=== PATIENT | female | born 1960 | race Caucasian/White ===

== ENCOUNTER 2018-10-12 11:38 | Emergency (ER) | payer BC, OTHER ==
[~2018-10-12] VITALS: Ht 152.4 cm; Wt 68.9 kg
[~2018-10-12 11:38] MED LIST: AMBIEN10 MG PO; CYMBALTA60 MG PO; OMEPRAZOLE40 MG PO; PERCOCET 10-321 EACH PO; TRAZODONE HCL150 MG PO; ZANAFLEX4 MG PO
--- OUTSIDE RECORDS SUMMARY | 2018-10-12 11:42 | XMS REPORT | Continuity of Care Document ---
Author Author [employer] Organization [employer] Address Unknown Phone Unavailable Care Team Providers Care Sealer Dry [employer] Name Role Phone [employer] Unavailable Unavailable Problems Problem Status Onset Date Classification Date Reported Comments Source M48.02 - SPINAL STENOSIS, CERVICAL RODY Active 06/09/2018 [facility] M79.642 - PAIN IN LEFT HAND Active 04/18/2018 [facility] Discharge Diagnosis: Acute left-sided low back pain 11/14/2016 11/17/2016 [facility] BACK PAIN Active 11/14/2016 [facility] Discharge Diagnosis: Sacral contusion 10/22/2016 10/25/2016 [facility] FALL/HIP PAIN Active 10/22/2016 [facility] ACUTE PYELONEPHRITIS, LEUKOCYTOSIS Active 05/26/2016 [facility] FEVER 105 Active 05/26/2016 [facility] UNK Active 02/02/2015 [facility] I25.118 Active 02/02/2015 [facility] FALL Active 12/15/2014 [facility] SYNCOPE, RIB FX Active 12/15/2014 [facility] Discharge Diagnosis: Chest wall pain 12/11/2013 12/14/2013 [facility] FLANK PAIN Active 12/09/2013 [facility] Idiopathic Atrophic Hypothyroidism Active Problem 06/15/2018 [facility] Chest pain Resolved Problem 06/15/2018 [facility] [place] Degenerative disc disease Resolved Problem 06/15/2018 [facility] [place] Depression Resolved Problem 06/15/2018 [facility] [place] Fibromyalgia Resolved Problem 06/15/2018 [facility] [place] Insomnia due to Depression and Anxiety Active Problem 06/15/2018 [facility], [facility] [place] Kidney stones Resolved Problem 06/15/2018 [facility] Opioid dependence Active Problem 06/15/2018 [facility] [place] Moderate recurrent major depression Active Problem 06/15/2018 [facility], [facility] [place] Shortness of breath Resolved Problem 06/15/2018 [facility], [facility] [place] Smoker Resolved Problem 06/15/2018 [facility], [facility] [place] Syncope Resolved Problem 06/15/2018 [facility], [facility] [place] Tachycardia Resolved Problem 06/15/2018 [facility], [facility] [place] SYNCOPE AND COLLAPSE Active [facility] ATHSCL HEART DISEASE OF [place] COR ART W Active [facility] ACUTE PYELONEPHRITIS Active [facility] ELEVATED WHITE BLOOD CELL COUNT, UNSPECI Active [facility] Medications Medication Details Route Status Patient Instructions Ordering Provider Order Date Source levothyroxine 50 mcg (0.05 mg) oral tablet 50 microgram=1 tab, PO, QAM, take with plain water on empty stomach for thyroid. Wait 30 minutes before other food, drink, or pills., # 90 tab, 1 Refill(s), Pharmacy: [facility] Active 06/11/2018 [facility] Chantix 1 mg oral tablet 1 mg=1 tab, PO, BID, to start: half tab once a day x4days, then half tab twice a [id number], then whole tab twice daily, # 180 tab, 2 Refill(s), Pharmacy: [facility] Active 06/03/2018 [facility] 0.5 ML Varicella zoster virus glycoprotein E, recombinant 0.1 MG/ML Injection [Shingrix] 0.5 mL, IM, ONCE, repeat dose in 2 to 6 months, # 1 mL, 1 Refill(s) Active 06/03/2018 [facility] gabapentin 600 MG Oral Tablet [Gralise] 600 mg=1 tab, PO, Daily, # 90 tab, 1 Refill(s) Inactive 06/03/2018 [facility] Dilaudid 0.5 mg, 0.5 mL, Route: IVP, Drug form: INJ, ONCE, Dosing Weight 52.273, kg, Priority: STAT, Start date: 11/14/16 17:40:00 CDT, Stop date: 11/14/16 17:40:00 CDT Inactive 11/14/2016 [facility] Cyclobenzaprine hydrochloride 10 MG Oral Tablet [Flexeril] 10 mg, PO, TID, PRN Muscle Spasm, X 5 day, # 20 tab, 0 Refill(s) Active 11/14/2016 [facility] tramadol hydrochloride 50 MG Oral Tablet [Ultram] 100 mg=2 tab, PO, Q6H, PRN pain, X 5 day, # 40 tab, 0 Refill(s) Active 11/14/2016 [facility] Dexamethasone 10 mg, 2.5 mL, Route: IM, Drug form: INJ, ONCE, Dosing Weight 52.273, kg, Priority: STAT, Start date: 11/14/16 16:31:00 CDT, Stop date: 11/14/16 16:31:00 CDT Inactive 11/14/2016 [facility] Acetaminophen 325 MG / Hydrocodone Bitartrate 10 MG Oral Tablet [Bardwell 10/325] 1 tab, Route: PO, Drug Form: TAB, Dosing Weight 52.273, kg, ONCE, Start date: 11/14/16 16:30:00 CDT, Stop date: 11/14/16 16:30:00 CDTNotes: Do not exceed 4gm/day of acetaminophen. (Same as: Bardwell 325/10) Inactive 11/14/2016 [facility] Ketorolac 60 mg, 2 mL, Route: IM, Drug form: INJ, ONCE, Dosing Weight 52.273, kg, Priority: STAT, Start date: 11/14/16 16:30:00 CDT, Stop date: 11/14/16 16:30:00 CDTNotes: (Same as:Toradol) IV bolus must be given >15 seconds. Give IM administration slowly and deeply into the muscle. Not for use > 4 days MEDICATION WASTE Product Size: 60 mg Product Wasted: ___ mg Inactive 11/14/2016 [facility] Valium 5 mg, 1 tab, Route: PO, Drug form: TAB, ONCE, Dosing Weight 52.273, kg, Priority: STAT, Start date: 11/14/16 16:30:00 CDT, Stop date: 11/14/16 16:30:00 CDTNotes: (Same as: Valium) Inactive 11/14/2016 [facility] Valium 5 mg, 1 tab, Route: PO, Drug form: TAB, ONCE, Dosing Weight 52.273, kg, Priority: STAT, Start date: 11/14/16 15:47:00 CDT, Stop date: 11/14/16 15:47:00 CDTNotes: (Same as: Valium) Inactive 11/14/2016 [facility] Acetaminophen 325 MG / Hydrocodone Bitartrate 10 MG Oral Tablet [Bardwell 10/325] 1 tab, Route: PO, Drug Form: TAB, Dosing Weight 52.273, kg, ONCE, STAT, Start date: 11/14/16 15:47:00 CDT, Stop date: 11/14/16 15:47:00 CDTNotes: Do not exceed 4gm/day of acetaminophen. (Same as: Bardwell 325/10) Inactive 11/14/2016 [facility] Ketorolac 60 mg, 2 mL, Route: IM, Drug form: INJ, ONCE, Dosing Weight 52.727, kg, Priority: STAT, Start date: 11/14/16 15:47:00 CDT, Stop date: 11/14/16 15:47:00 CDTNotes: (Same as:Toradol) IV bolus must be given >15 seconds. Give IM administration slowly and deeply into the muscle. Not for use > 4 days MEDICATION WASTE Product Size: 60 mg Product Wasted: ___ mg Inactive 11/14/2016 [facility] Zofran ODT 4 mg, Route: PO, Drug form: TABDIS, ONCE, Dosing Weight 52.727, kg, Priority: STAT, Start date: 10/22/16 14:22:00 CDT, Stop date: 10/22/16 14:22:00 CDT Inactive 10/22/2016 [facility] Morphine 4 mg, Route: IM, ONCE, Dosing Weight 52.727, kg, Priority: STAT, Start date: 10/22/16 14:22:00 CDT, Stop date: 10/22/16 14:22:00 CDT Inactive 10/22/2016 [facility] tramadol hydrochloride 50 MG Oral Tablet [Ultram] 100 mg=2 tab, PO, Q6H, PRN pain, X 4 day, # 32 tab, 0 Refill(s) Active 10/22/2016 [facility] Acetaminophen 325 MG / Hydrocodone Bitartrate 7.5 MG Oral Tablet [Bardwell 7.5/325] 1 tab, Route: PO, Drug Form: TAB, Dosing Weight 52.727, kg, ONCE, STAT, Start date: 10/22/16 13:07:00 CDT, Stop date: 10/22/16 13:07:00 CDT Inactive 10/22/2016 [facility] PLease do not give Vanco prior to trough is collected PLease do not give Vanco prior to trough is collected, Reminder, Drug form: MISC, Route: MISC, ONCE, 05/28/16 10:30:00 [employer], Stop date: 05/28/16 10:30:00 [employer] No Longer Active 05/28/2016 [facility] Docusate Sodium 100 MG Oral Capsule [Colace] 200 mg, 2 cap, Route: PO, Drug form: CAP, BID, Dosing Weight 54.545, kg, Start date: 05/27/16 17:00:00 [employer], Duration: 30 day, Stop date: 06/26/16 9:00:00 CDTNotes: (Same as: Colace) (Do Not Crush) Inactive 05/27/2016 [facility] magnesium citrate 58.2 MG/ML Oral Solution 300 ml, Route: PO, Drug Form: LIQ, Dosing Weight 54.545, kg, ONCE, Start date: 05/27/16 12:01:00 [employer], Stop date: 05/27/16 12:01:00 CSTNotes: (Same as: Citrate of Magnesia) Concentration: 1.745 gm / 30 mL Inactive 05/27/2016 [facility] Atropine 0.5 mg, 5 mL, Route: IV, Drug form: INJ, PRN, Dosing Weight 54.545, kg, PRN Bradycardia, Start date: 05/27/16 3:34:00 [employer], Duration: 30 day, Stop date: 06/26/16 4:33:00 CDT, symptomatic bradycardia HR Inactive 05/27/2016 [facility] Nitroglycerin 0.4 MG Sublingual Tablet [Nitrostat] 0.4 mg, 1 tab, Route: SL, Drug form: TAB, Q5Min, Dosing Weight 54.545, kg, PRN Chest Pain, Start date: 05/27/16 3:34:00 [employer], Duration: 3 doses or times, Stop date: Limited # of timesNotes: (Same as:Nitroquick, Nitrostat) "Do Not Crush" Sublingual tablet Inactive 05/27/2016 [facility] Trazodone 150 mg, 3 tab, Route: PO, Drug form: TAB, Bedtime, Dosing Weight 54.545, kg, Start date: 05/27/16 1:00:00 [employer], Duration: 30 day, Stop date: 06/25/16 21:00:00 CDTNotes: (Same As: Desyrel) Inactive 05/27/2016 [facility] Ambien 5 mg, 1 tab, Route: PO, Drug form: TAB, Bedtime, Dosing Weight 54.545, kg, PRN as needed for sleep, Start date: 05/27/16 0:59:00 [employer], Stop date: 06/24/16 21:00:00 CDTNotes: (Same As: Ambien) Inactive 05/27/2016 [facility] Cymbalta 60 mg, 2 cap, Route: PO, Drug form: DRC, Bedtime, Dosing Weight 54.545, kg, Start date: 05/27/16 0:59:00 [employer], Duration: 30 day, Stop date: 06/25/16 21:00:00 CDTNotes: (Same as: Cymbalta) (Do Not Crush) Inactive 05/27/2016 [facility] VESICARE PO, Daily, 0 Refill(s) Active 05/27/2016 [facility] Clonazepam 0.5 mg, PO, Daily, PRN Anxiety, 0 Refill(s) Active 05/27/2016 [facility] Paxil PO, Daily, 0 Refill(s) Active 05/27/2016 [facility] Vancomycin 1,000 mg, Route: IVPB, Drug form: INJ, [id number], Dosing Weight 53.182, kg, Start date: 05/26/16 22:00:00 [employer], Duration: 30 day, Stop date: 06/25/16 10:00:00 CDT Inactive 05/27/2016 [facility] Zosyn 3.375 gm, Route: IVPB, [id number], Dosing Weight 53.182, kg, CrCl >=20 ml/min infuse over 4 hours, Start date: 05/26/16 22:00:00 [employer], Duration: 30 day, Stop date: 06/25/16 16:00:00 CDTNotes: (Same as: Zosyn) Dosing based on Piperacillin component MEDICATION WASTE Product Size: 3375 mg Product Wasted: ___ mg No Longer Active 05/27/2016 [facility] 12 HR Oxycodone Hydrochloride 15 MG Extended Release Tablet [Oxycontin] 15 mg=1 tab, PO, Bedtime, 0 Refill(s) Active 05/27/2016 [facility] Sodium Chloride 0.154 MEQ/ML Injectable Solution 1,000 mL, 1,000 ml/hr, Infuse Over: 1 hr, Route: IV, 1,000, Drug form: INJ, ONCE, Priority: STAT, Dosing Weight 53.182 kg, Start date: 05/26/16 21:11:00 [employer], Duration: 1 doses or times, Stop date: 05/26/16 21:11:00 [employer] Inactive 05/27/2016 [facility] Saline Flush 0.9% 10 ml, Route: IVP, Drug Form: INJ, Dosing Weight 53.182, kg, PRN, PRN Line Flush, Start date: 05/26/16 21:10:00 [employer], Duration: 30 day, Stop date: 06/25/16 22:09:00 CDTNotes: (Same as: BD Posiflush) No Longer Active 05/27/2016 [facility] Morphine 4 mg, 1 mL, Route: IVP, Drug form: SOLN, Q4H, Dosing Weight 53.182, kg, PRN Pain Score 7-10, Start date: 05/26/16 21:10:00 [employer], Duration: 30 day, Stop date: 06/25/16 21:09:00 CDTNotes: (Same as:MORPhine Sulfate) No Longer Active 05/27/2016 [facility] Ondansetron 4 mg, 2 mL, Route: IVP, Drug form: INJ, Q6H, Dosing Weight 53.182, kg, PRN Nausea & Vomiting, Start date: 05/26/16 21:10:00 [employer], Duration: 30 day, Stop date: 06/25/16 21:09:00 CDTNotes: (Same as: Liu) MEDICATION WASTE Product Size: 4 mg Product Wasted: ___ mg No Longer Active 05/27/2016 [facility] Sodium Chloride 0.154 MEQ/ML Injectable Solution 1,000 mL, Rate: 100 ml/hr, Infuse over: 10 hr, Route: IV, Dosing Weight 53.182 kg, Total Volume: 1,000, Start date: 05/26/16 21:10:00 [employer], Stop date: 06/25/16 21:09:00 CDT No Longer Active 05/27/2016 [facility] Acetaminophen 325 MG / Hydrocodone Bitartrate 10 MG Oral Tablet [Bardwell 10/325] 2 tab, Route: PO, Drug Form: TAB, Dosing Weight 53.182, kg, ONCE, STAT, Start date: 05/26/16 17:35:00 [employer], Stop date: 05/26/16 17:35:00 [employer] Inactive 05/26/2016 [facility] cefepime 2 gm, Route: IVPB, ONCE, Dosing Weight 53.182, kg, Priority: STAT, Start date: 05/26/16 16:31:00 [employer], Stop date: 05/26/16 16:31:00 [employer] Inactive 05/26/2016 [facility] Sodium Chloride 0.154 MEQ/ML Injectable Solution 1,000 mL, 1,000 ml/hr, Infuse Over: 1 hr, Route: IV, 1,000, Drug form: INJ, ONCE, Priority: STAT, Dosing Weight 53.182 kg, Start date: 05/26/16 16:31:00 [employer], Duration: 1 doses or times, Stop date: 05/26/16 16:31:00 [employer] Inactive 05/26/2016 [facility] Saline Flush 0.9% 10 mL, Route: IVP, Drug Form: INJ, Dosing Weight 53.182, kg, PRN, PRN Line Flush, Start date: 05/26/16 16:06:00 [employer], Duration: 30 day, Stop date: 06/25/16 17:05:00 CDTNotes: (Same as: Posiflush) No Longer Active 05/26/2016 [facility] Sodium Chloride 0.154 MEQ/ML Injectable Solution 1,000 mL, 2,000 ml/hr, Route: IV, ONCE, Priority: STAT, Dosing Weight 53.182 kg, Start date: 05/26/16 16:06:00 [employer], Duration: 1 doses or times, Stop date: 05/26/16 16:06:00 [employer] Inactive 05/26/2016 [facility] Morphine 2 mg, 1 mL, Route: IV, Drug form: INJ, Q4H, Dosing Weight 51.727, kg, PRN Pain Score 6-10, Start date: 02/04/15 11:28:00, Duration: 30 day, Stop date: 03/06/15 11:27:00Notes: (Same as:MORPhine Sulfate) Inactive 02/04/2015 [facility] Tylenol 500 mg, 1 tab, Route: PO, Drug form: TAB, Q6H, Dosing Weight 51.727, kg, PRN Pain Score 4-6, Start date: 02/04/15 11:27:00, Duration: 30 day, Stop date: 03/06/15 11:26:00Notes: Max acetaminophen 4000 mg /day (4 gm/day). (Same as: Tylenol Extra Strength) Inactive 02/04/2015 [facility] metoprolol 25 mg oral tablet, extended release 25 mg=1 tab, PO, Daily, # 90 tab, 3 Refill(s) Active 02/04/2015 [facility] 24 HR Nicotine 0.875 MG/HR Transdermal Patch =1 patch, TOP, Daily, # 30 patch, 0 Refill(s) Active 02/04/2015 [facility] Nitroglycerin 0.4 MG Sublingual Tablet 0.4 mg=1 tab, SL, Q5Min, PRN Chest Pain, Give up to 3 doses. Call 911 if pain persists., # 25 tab, 3 Refill(s) Active 02/04/2015 [facility] normal saline 0.9% IV 1,000 mL 1,000 mL, Rate: 100 ml/hr, Infuse over: 10 hr, Route: IV, Dosing Weight 49.091 kg, Total Volume: 1,000, Start date: 02/04/15 8:45:00, Duration: 30 day, Stop date: 03/06/15 8:44:00 Inactive 02/04/2015 [facility] Cymbalta 60 mg, 2 cap, Route: PO, Drug form: DRC, Daily, Dosing Weight 47.72, kg, Start date: 12/18/14 9:00:00, Duration: 30 day, Stop date: 01/16/15 9:00:00Notes: (Same as: Cymbalta) (Do Not Crush) No Longer Active 12/18/2014 [facility] metoprolol extended release 25 mg, 1 tab, Route: PO, Drug form: ERTAB, BID, Start date: 12/17/14 21:00:00, Duration: 30 day, Stop date: 01/16/15 9:00:00Notes: (Same as: Toprol XL) Do Not Crush Inactive 12/18/2014 [facility] Lidocaine Hydrochloride 0.05 MG/MG Transdermal Patch [Lidoderm] 1 patch, TOP, Daily, Remove after 12 hours, # 30 patch, 0 Refill(s)Special Instructions: Remove after 12 hours Active 12/17/2014 [facility] Aspirin 81 MG Enteric Coated Tablet 81 mg=1 tab, PO, Daily, # 100 tab, 0 Refill(s) Active 12/17/2014 [facility] Acetaminophen 325 MG / Oxycodone Hydrochloride 10 MG Oral Tablet [Percocet 10/325] 1 tab, Route: PO, Drug Form: TAB, Dosing Weight 47.72, kg, Q6H, PRN Pain 1-3/Temp > 100.4 F, Start date: 12/17/14 13:37:00, Duration: 30 day, Stop date: 01/16/15 13:36:00Notes: Do not exceed 4gm/day of acetaminophen. (Same as: Percocet-10/325) Inactive 12/17/2014 [facility] tizanidine 4 mg, 1 tab, Route: PO, Drug form: TAB, Daily, Dosing Weight 47.72, kg, PRN as needed for muscle spasm, Start date: 12/17/14 13:36:00, Duration: 30 day, Stop date: 01/16/15 13:35:00Notes: (Same As: Z anaflex) Inactive 12/17/2014 [facility] Aspirin 81 MG Enteric Coated Tablet 81 mg, 1 tab, Route: PO, Drug form: ECTAB, Daily, Dosing Weight 47.72, kg, Start date: 12/17/14 9:00:00, Duration: 30 day, Stop date: 01/15/15 9:00:00Notes: Do not crush or chew. (Same As: Ecotrin) Inactive 12/17/2014 [facility] remove patch 1 patch, Route: TOP, Bedtime, Drug form: ERFILM, Start date: 12/17/14 6:00:00, Duration: 30 day, Stop date: 01/15/15 6:00:00Notes: Remove patch 12 hours after application each day. Inactive 12/17/2014 [facility] Lidocaine Hydrochloride 0.05 MG/MG Transdermal Patch [Lidoderm] 1 patch, Route: TOP, Daily, Drug form: FILM, Start date: 12/16/14 18:00:00, Duration: 30 day, Stop date: 01/14/15 18:00:00, Remove after 12 hoursSpecial Instructions: Remove after 12 hoursNotes: Apply only once for up to 12 hours in a 24-hour period (12 hours on and 12 hours off). (Same as: Lidoderm) "Remove old patch before application of new patch" No Longer Active 12/16/2014 [facility] Acetaminophen 325 MG / Oxycodone Hydrochloride 10 MG Oral Tablet [Percocet 10/325] 1 tab, PO, 4-6x/Day, PRN Pain Score 6-10, # 20 tab, 0 Refill(s) Active 12/16/2014 [facility] Zolpidem tartrate 10 MG Oral Tablet [Ambien] 10 mg=1 tab, PO, Bedtime, 0 Refill(s) Active 12/16/2014 [facility] tizanidine 4 mg oral tablet 4 mg=1 tab, PO, Daily, PRN Spasm, 0 Refill(s) Active 12/16/2014 [facility] trazodone 150 mg oral tablet 150 mg=1 tab, PO, Bedtime, 0 Refill(s) Active 12/16/2014 [facility] duloxetine 60 MG Enteric Coated Capsule [Cymbalta] 60 mg=1 cap, PO, Daily, 0 Refill(s) Active 12/16/2014 [facility] Magnesium Sulfate 2 gm, 50 mL, Route: IVPB, Drug form: INJ, ONCE, Dosing Weight 47.72, kg, Start date: 12/16/14 17:20:00, Duration: 2 hr, Stop date: 12/16/14 17:20:00 Inactive 12/16/2014 [facility] Nitroglycerin 0.4 MG Sublingual Tablet 0.4 mg, 1 tab, Route: SL, Drug form: TAB, Q5Min, Dosing Weight 47.72, kg, PRN Chest Pain, Start date: 12/16/14 17:05:00, Duration: 30 day, Stop date: 01/15/15 17:04:00Notes: (Same as:Nitroquick, Nitrostat) "Do Not Crush" Sublingual tablet No Longer Active 12/16/2014 [facility] Atropine 0.5 mg, 5 mL, Route: IVP, Drug form: INJ, ONCE, Dosing Weight 47.72, kg, PRN Bradycardia, Start date: 12/16/14 17:05:00, for symptomatic bradycardia No Longer Active 12/16/2014 [facility] Nicotine 21 mg, 1 patch, Route: TOP, Drug form: ERFILM, Daily, Dosing Weight 47.727, kg, Start date: 12/16/14 17:00:00, Duration: 30 day, Stop date: 01/15/15 9:00:00Notes: (Same as: Habitrol) "Remove old patch before application of new patch" No Longer Active 12/16/2014 [facility] Docusate 100 mg, 1 cap, Route: PO, Drug form: CAP, BID, Dosing Weight 47.727, kg, PRN Constipation, Start date: 12/16/14 13:20:00, Duration: 30 day, Stop date: 01/15/15 13:19:00Notes: (Same as: Colace) (Do Not Crush) No Longer Active 12/16/2014 [facility] Ondansetron 4 mg, 2 mL, Route: IVP, Drug form: INJ, Q6H, Dosing Weight 47.727, kg, PRN Nausea & Vomiting, Start date: 12/16/14 13:20:00, Duration: 30 day, Stop date: 01/15/15 13:19:00Notes: (Same as: Zofran) MEDICATION WASTE Product Size: 4 mg Product Wasted: ___ mg No Longer Active 12/16/2014 [facility] Morphine 2 mg, 1 mL, Route: IVP, Drug form: INJ, Q4H, Dosing Weight 47.727, kg, PRN Pain Score 7-10, Start date: 12/16/14 13:20:00, Duration: 30 day, Stop date: 01/15/15 13:19:00Notes: (Same as:MORPhine Sulfate) No Longer Active 12/16/2014 [facility] Zofran 4 mg, 2 mL, Route: IVP, Drug form: INJ, ONCE, Dosing Weight 47.727, kg, Priority: STAT, Start date: 12/16/14 12:33:00, Stop date: 12/16/14 12:33:00Notes: (Same as: Zoaleyda) MEDICATION WASTE Product Size: 4 mg Product Wasted: ___ mg Inactive 12/16/2014 [facility] Morphine 4 mg, 2 mL, Route: IVP, Drug form: INJ, ONCE, Dosing Weight 47.727, kg, Priority: STAT, Start date: 12/16/14 12:33:00, Stop date: 12/16/14 12:33:00Notes: (Same as:MORPhine Sulfate) Inactive 12/16/2014 [facility] Acetaminophen 325 MG / Hydrocodone Bitartrate 10 MG Oral Tablet [Bardwell 10/325] 1 tab, Route: PO, Drug Form: TAB, Dosing Weight 47.727, kg, ONCE, STAT, Start date: 12/16/14 8:37:00, Stop date: 12/16/14 8:37:00 Inactive 12/16/2014 [facility] Flexeril 10 mg, Route: PO, ONCE, Dosing Weight 47.727, kg, Priority: STAT, Start date: 12/16/14 8:37:00, Stop date: 12/16/14 8:37:00 Inactive 12/16/2014 [facility] Saline Flush 0.9% 10 mL, Route: IVP, Drug Form: INJ, Dosing Weight 47.727, kg, PRN, PRN Line Flush, Start date: 12/16/14 8:34:00, Duration: 30 day, Stop date: 01/15/15 8:33:00Notes: (Same as: BD Posiflush) No Longer Active 12/16/2014 [facility] Sodium Chloride 0.154 MEQ/ML Injectable Solution 1,000 mL, 1,000 ml/hr, Infuse Over: 1 hr, Route: IV, ONCE, Priority: STAT, Dosing Weight 47.727 kg, Start date: 12/16/14 8:34:00, Duration: 1 doses or times, Stop date: 12/16/14 8:34:00 Inactive 12/16/2014 [facility] Acetaminophen 325 MG / Hydrocodone Bitartrate 5 MG Oral Tablet [Bardwell 5/325] 1-2 tab, PO, Q4-6H, Pain, # 15 tab, 0 Refill(s) Active 12/11/2013 [facility] naproxen 500 mg oral tablet 500 mg=1 tab, PO, Q12H, Pain, # 20 tab, 0 Refill(s) Active 12/11/2013 [facility] Morphine 4 mg, Route: IVP, Drug form: INJ, ONCE, Dosing Weight 52.273, kg, Priority: STAT, Start date: 12/11/13 16:46:00, Stop date: 12/11/13 16:46:00 Inactive 12/11/2013 [facility] Ondansetron 4 mg, Route: IVP, ONCE, Dosing Weight 52.273, kg, Priority: STAT, Start date: 12/11/13 15:47:00, Stop date: 12/11/13 15:47:00 Inactive 12/11/2013 [facility] Morphine 4 mg, Route: IVP, ONCE, Dosing Weight 52.273, kg, Priority: STAT, Start date: 12/11/13 15:47:00, Stop date: 12/11/13 15:47:00 Inactive 12/11/2013 [facility] Saline Flush 0.9% 10 mL, Route: IVP, Drug Form: INJ, Dosing Weight 52.273, kg, PRN, PRN Line Flush, Start date: 12/11/13 15:47:00, Duration: 30 day, Stop date: 01/10/14 15:46:00Notes: (Same as: BD Posiflush) Inactive 12/11/2013 [facility] Allergies, Adverse Reactions, Alerts Substance Category Reaction Severity Reaction type Status Date Reported Comments Source Cipro Assertion Drug allergy Active [facility] codeine Assertion Drug allergy Active [facility] Immunizations No Data Provided for This Section Results Order Name Results Value Reference Range Date Interpretation Comments Source CHEM PANEL eGFR 104 05/27/2016 Result Comment: The eGFR is calculated using the CKD-EPI formula. In most young, healthy individuals the eGFR will be >90 mL/min/1.73m2. The eGFR declines with age. An eGFR of 60-89 may be normal in some populations, particularly the elderly, for whom the CKD-EPI formula has not been extensively validated. Use of the eGFR is not recommended in the following populations:

Individuals with unstable creatinine concentrations, including patients and those with serious co-morbid conditions.

Patients with extremes in muscle mass or diet.

The data above are obtained from the National Kidney Disease Education Program (NKDEP) which additionally recommends that when the eGFR is used in patients with extremes of body mass index for purposes of drug dosing, the eGFR should be multiplied by the estimated BMI. [facility] CHEM PANEL Albumin Lvl 2.0 3.5 - 5.0 05/27/2016 [facility] CHEM PANEL Globulin 3.4 2.7 - 4.2 05/27/2016 [facility] CHEM PANEL A/G Ratio 0.6 0.7 - 1.6 05/27/2016 [facility] CHEM PANEL ALT 11 0 - 65 05/27/2016 [facility] CHEM PANEL B/C Ratio 9 6 - 25 05/27/2016 [facility] CHEM PANEL Total Protein 5.4 6.4 - 8.4 05/27/2016 [facility] CHEM PANEL AST 11 0 - 37 05/27/2016 [facility] CHEM PANEL Alk Phos 90 39 - 136 05/27/2016 [facility] CHEM PANEL Bili Total 0.5 0.2 - 1.3 05/27/2016 [facility] CHEM PANEL CO2 19 24 - 32 05/27/2016 [facility] CHEM PANEL Calcium Lvl 6.7 8.5 - 10.5 05/27/2016 Result Comment: Critical Result(s) called to Akash Munguia at 05/27/2016 08:42 by celeste. Read back OK. [facility] CHEM PANEL Potassium Lvl 3.4 3.5 - 5.1 05/27/2016 [facility] CHEM PANEL Chloride Lvl 107 95 - 109 05/27/2016 [facility] CHEM PANEL Creatinine Lvl 0.55 0.50 - 1.40 05/27/2016 [facility] CHEM PANEL Sodium Lvl 138 135 - 145 05/27/2016 [facility] CHEM PANEL AGAP 15.4 10.0 - 20.0 05/27/2016 [facility] CHEM PANEL Glucose Lvl 71 70 - 99 05/27/2016 [facility] CHEM PANEL BUN 5 7 - 22 05/27/2016 [facility] HEMATOLOGY Monocytes 8.7 2.0 - 12.0 05/27/2016 [facility] HEMATOLOGY Lymphocytes 7.2 20.0 - 40.0 05/27/2016 [facility] HEMATOLOGY Eosinophils 0.8 0.0 - 4.0 05/27/2016 [facility] HEMATOLOGY Lymphocytes # 0.8 1.0 - 5.5 05/27/2016 [facility] HEMATOLOGY Eosinophils # 0.1 0.0 - 0.5 05/27/2016 [facility] HEMATOLOGY Monocytes # 1.0 0.0 - 0.8 05/27/2016 [facility] HEMATOLOGY Segs 83.0 45.0 - 75.0 05/27/2016 [facility] Segs-Bands # 9.8 1.5 - 8.1 05/27/2016 [facility] HEMATOLOGY Basophils 0.3 0.0 - 1.0 05/27/2016 [facility] MPV 7.4 7.4 - 10.4 05/27/2016 [facility] RDW 15.5 11.5 - 14.5 05/27/2016 [facility] MCHC 32.9 32.0 - 36.0 05/27/2016 [facility] Platelet 169 133 - 450 05/27/2016 [facility] Hgb 9.2 12.0 - 16.0 05/27/2016 [facility] RBC 3.04 4.20 - 5.40 05/27/2016 [facility] WBC 11.8 3.7 - 10.4 05/27/2016 [facility] MCH 30.3 27.0 - 31.0 05/27/2016 [facility] Hct 27.9 36.0 - 48.0 05/27/2016 [facility] MCV 91.8 80.0 - 98.0 05/27/2016 [facility] URINE AND STOOL UA pH 6.0 5.0 - 8.0 05/27/2016 [facility] URINE AND STOOL UA Glucose Negative mg/dL Negative mg/dL 05/27/2016 [facility] URINE AND STOOL UA Protein 100 mg/dL Negative mg/dL 05/27/2016 [facility] URINE AND STOOL UA Bili Negative *NA* (05/26/16 7:44 PM) Negative 05/27/2016 [facility] URINE AND STOOL UA Ketones Trace mg/dL Negative mg/dL 05/27/2016 [facility] URINE AND STOOL UA Blood Large *ABN* (05/26/16 7:44 PM) Negative 05/27/2016 [facility] URINE AND STOOL UA Spec Grav 1.010 <=1.030 05/27/2016 [facility] URINE AND STOOL UA Turbidity Marked *ABN* (05/26/16 7:44 PM) Clear 05/27/2016 [facility] URINE AND STOOL UA Nitrite Negative (05/26/16 7:44 PM) Negative 05/27/2016 [facility] URINE AND STOOL UA Leuk Est Large *ABN* (05/26/16 7:44 PM) Negative 05/27/2016 [facility] URINE AND STOOL UA WBC >182 0 - 5 05/27/2016 [facility] URINE AND STOOL UA Sq Epi Many /LPF Few /LPF 05/27/2016 [facility] URINE AND STOOL UA RBC >182 0 - 2 05/27/2016 [facility] URINE AND STOOL UA Color Red 05/27/2016 [facility] URINE AND STOOL UA Urobilinogen <=1.0 mg/dL 0.1 - 1.0 05/27/2016 [facility] URINE AND STOOL UA Mucus Few /LPF None Seen /LPF 05/27/2016 [facility] URINE AND STOOL UA Bacteria Occasional /HPF None Seen /HPF 05/27/2016 [facility] CARDIAC ENZYMES Total CK 33 12 - 191 05/26/2016 [facility] CARDIAC ENZYMES CK MB 0.5 0.5 - 3.6 05/26/2016 [facility] CARDIAC ENZYMES Troponin-I <0.02 0.00 - 0.40 05/26/2016 [facility] CARDIAC ENZYMES CK MB Index 1.5 0.0 - 2.5 05/26/2016 [facility] CHEM PANEL A/G Ratio 0.7 0.7 - 1.6 05/26/2016 [facility] CHEM PANEL Globulin 3.8 2.7 - 4.2 05/26/2016 [facility] CHEM PANEL AGAP 13.6 10.0 - 20.0 05/26/2016 [facility] CHEM PANEL B/C Ratio 10 6 - 25 05/26/2016 [facility] CHEM PANEL eGFR 93 05/26/2016 Result Comment: The eGFR is calculated using the CKD-EPI formula. In most young, healthy individuals the eGFR will be >90 mL/min/1.73m2. The eGFR declines with age. An eGFR of 60-89 may be normal in some populations, particularly the elderly, for whom the CKD-EPI formula has not been extensively validated. Use of the eGFR is not recommended in the following populations:

Individuals with unstable creatinine concentrations, including patients and those with serious co-morbid conditions.

Patients with extremes in muscle mass or diet.

The data above are obtained from the National Kidney Disease Education Program (NKDEP) which additionally recommends that when the eGFR is used in patients with extremes of body mass index for purposes of drug dosing, the eGFR should be multiplied by the estimated BMI. [facility] CHEM PANEL AST 11 0 - 37 05/26/2016 [facility] CHEM PANEL Bili Total 0.5 0.2 - 1.3 05/26/2016 [facility] CHEM PANEL Alk Phos 93 39 - 136 05/26/2016 [facility] CHEM PANEL Total Protein 6.3 6.4 - 8.4 05/26/2016 [facility] CHEM PANEL Calcium Lvl 7.7 8.5 - 10.5 05/26/2016 [facility] CHEM PANEL CO2 24 24 - 32 05/26/2016 [facility] CHEM PANEL Albumin Lvl 2.5 3.5 - 5.0 05/26/2016 [facility] CHEM PANEL ALT 14 0 - 65 05/26/2016 [facility] CHEM PANEL Chloride Lvl 103 95 - 109 05/26/2016 [facility] CHEM PANEL Glucose Lvl 97 70 - 99 05/26/2016 [facility] CHEM PANEL BUN 7 7 - 22 05/26/2016 [facility] CHEM PANEL Creatinine Lvl 0.72 0.50 - 1.40 05/26/2016 [facility] CHEM PANEL Sodium Lvl 137 135 - 145 05/26/2016 [facility] CHEM PANEL Potassium Lvl 3.6 3.5 - 5.1 05/26/2016 [facility] CHEM PANEL Lactic Acid Lvl 0.9 0.5 - 2.2 05/26/2016 [facility] CHEM PANEL Procalcitonin Lvl 0.86 0.00 - 0.10 05/26/2016 [facility] HEMATOLOGY Platelet 183 133 - 450 05/26/2016 [facility] HEMATOLOGY MPV 7.1 7.4 - 10.4 05/26/2016 [facility] HEMATOLOGY RDW 15.8 11.5 - 14.5 05/26/2016 [facility] HEMATOLOGY MCHC 32.9 32.0 - 36.0 05/26/2016 [facility] HEMATOLOGY Hgb 10.6 12.0 - 16.0 05/26/2016 [facility] HEMATOLOGY Hct 32.2 36.0 - 48.0 05/26/2016 [facility] HEMATOLOGY WBC 13.2 3.7 - 10.4 05/26/2016 [facility] HEMATOLOGY RBC 3.48 4.20 - 5.40 05/26/2016 [facility] HEMATOLOGY MCV 92.3 80.0 - 98.0 05/26/2016 [facility] HEMATOLOGY MCH 30.3 27.0 - 31.0 05/26/2016 [facility] HEMATOLOGY INR 1.03 0.85 - 1.17 05/26/2016 [facility] HEMATOLOGY PT 13.7 12.0 - 14.7 05/26/2016 [facility] HEMATOLOGY PTT 31.4 22.9 - 35.8 05/26/2016 [facility] HEMATOLOGY Monocytes # 1.1 0.0 - 0.8 05/26/2016 [facility] HEMATOLOGY Eosinophils # 0.1 0.0 - 0.5 05/26/2016 [facility] HEMATOLOGY RBC Morph Normal (05/26/16 4:52 PM) 05/26/2016 [facility] HEMATOLOGY Eosinophils 0.5 0.0 - 4.0 05/26/2016 [facility] HEMATOLOGY Plt Morph Normal (05/26/16 4:52 PM) 05/26/2016 [facility] HEMATOLOGY Segs 87.8 45.0 - 75.0 05/26/2016 [facility] HEMATOLOGY Lymphocytes 3.2 20.0 - 40.0 05/26/2016 [facility] HEMATOLOGY Monocytes 8.4 2.0 - 12.0 05/26/2016 [facility] HEMATOLOGY Basophils 0.1 0.0 - 1.0 05/26/2016 [facility] HEMATOLOGY Segs-Bands # 11.6 1.5 - 8.1 05/26/2016 [facility] HEMATOLOGY Lymphocytes # 0.4 1.0 - 5.5 05/26/2016 [facility] CHEM PANEL Magnesium Lvl 1.8 1.8 - 2.4 12/17/2014 [facility] LIPIDS VLDL 14 12/17/2014 [facility] LIPIDS LDL (Calculated) 36 <=99 mg/dL 12/17/2014 [facility] LIPIDS Chol 122 <=199 mg/dL 12/17/2014 [facility] LIPIDS Trig 68 <=149 mg/dL 12/17/2014 [facility] LIPIDS HDL 72 >=61 mg/dL 12/17/2014 [facility] LIPIDS CHD Risk 1.69 3.90 - 5.80 12/17/2014 [facility] SPECIAL CHEMISTRY Hgb A1C 5.1 <=5.6 % 12/16/2014 [facility] THYROID PANEL TSH 6.980 0.360 - 3.740 12/16/2014 [facility] THYROID PANEL T4 Free 0.85 0.76 - 1.46 12/16/2014 [facility] CARDIAC ENZYMES CK MB Index 0.8 0.0 - 2.5 12/16/2014 [facility] CARDIAC ENZYMES CK MB 1.1 0.5 - 3.6 12/16/2014 [facility] CARDIAC ENZYMES Troponin-I <0.02 0.00 - 0.40 12/16/2014 [facility] CARDIAC ENZYMES Total CK 135 12 - 191 12/16/2014 [facility] CHEM PANEL Phosphorus 3.0 2.5 - 4.5 12/16/2014 [facility] CHEM PANEL Magnesium Lvl 1.4 1.8 - 2.4 12/16/2014 [facility] HEMATOLOGY PTT 21.9 22.9 - 35.8 12/16/2014 [facility] HEMATOLOGY PT 13.7 12.0 - 14.7 12/16/2014 [facility] HEMATOLOGY INR 1.02 0.85 - 1.17 12/16/2014 [facility] DRUG SCREEN U Phencyc Scr Negative *NA* (12/16/14 10:24 AM) Negative 12/16/2014 [facility] DRUG SCREEN U Opiate Scr Positive *ABN* (12/16/14 10:24 AM) Negative 12/16/2014 [facility] DRUG SCREEN U Cocaine Scr Negative *NA* (12/16/14 10:24 AM) Negative 12/16/2014 [facility] DRUG SCREEN U Cannab Scr Negative *NA* (12/16/14 10:24 AM) Negative 12/16/2014 [facility] DRUG SCREEN U Benzodia Scr Negative *NA* (12/16/14 10:24 AM) Negative 12/16/2014 [facility] DRUG SCREEN U Lakshmi Scr Negative *NA* (12/16/14 10:24 AM) Negative 12/16/2014 [facility] DRUG SCREEN UDS Note See Note *NA* (12/16/14 10:24 AM) 12/16/2014 [facility] DRUG SCREEN U Amph Scr Negative *NA* (12/16/14 10:24 AM) Negative 12/16/2014 [facility] URINE AND STOOL UA Urobilinogen <=1.0 mg/dL 0.1 - 1.0 12/16/2014 [facility] URINE AND STOOL UA Spec Grav 1.017 <=1.030 12/16/2014 [facility] URINE AND STOOL UA pH 5.0 5.0 - 8.0 12/16/2014 [facility] URINE AND STOOL UA Color Yellow *NA* (12/16/14 10:24 AM) Yellow 12/16/2014 [facility] URINE AND STOOL UA Turbidity Clear (12/16/14 10:24 AM) Clear 12/16/2014 [facility] URINE AND STOOL UA RBC 4 0 - 2 12/16/2014 [facility] URINE AND STOOL UA Bacteria Occasional /HPF None Seen /HPF 12/16/2014 [facility] URINE AND STOOL UA Mucus Few /LPF None Seen /LPF 12/16/2014 [facility] URINE AND STOOL UA Sq Epi Moderate /LPF Few /LPF 12/16/2014 [facility] URINE AND STOOL UA WBC 2 0 - 5 12/16/2014 [facility] URINE AND STOOL UA Nitrite Negative (12/16/14 10:24 AM) Negative 12/16/2014 [facility] URINE AND STOOL UA Leuk Est Negative (12/16/14 10:24 AM) Negative 12/16/2014 [facility] URINE AND STOOL UA Blood Negative (12/16/14 10:24 AM) Negative 12/16/2014 [facility] URINE AND STOOL UA Glucose Negative mg/dL Negative mg/dL 12/16/2014 [facility] URINE AND STOOL UA Ketones Trace mg/dL Negative mg/dL 12/16/2014 [facility] URINE AND STOOL UA Protein Negative mg/dL Negative mg/dL 12/16/2014 [facility] URINE AND STOOL UA Bili Negative *NA* (12/16/14 10:24 AM) Negative 12/16/2014 [facility] CHEM PANEL Alk Phos 129 39 - 136 12/16/2014 [facility] CHEM PANEL Potassium Lvl 4.1 3.5 - 5.1 12/16/2014 [facility] CHEM PANEL Sodium Lvl 138 135 - 145 12/16/2014 [facility] CHEM PANEL Chloride Lvl 103 95 - 109 12/16/2014 [facility] CHEM PANEL eGFR 83 12/16/2014 Result Comment: The eGFR is calculated using the CKD-EPI formula. In most young, healthy individuals the eGFR will be >90 mL/min/1.73m2. The eGFR declines with age. An eGFR of 60-89 may be normal in some populations, particularly the elderly, for whom the CKD-EPI formula has not been extensively validated. Use of the eGFR is not recommended in the following populations:

Individuals with unstable creatinine concentrations, including patients and those with serious co-morbid conditions.

Patients with extremes in muscle mass or diet.

The data above are obtained from the National Kidney Disease Education Program (NKDEP) which additionally recommends that when the eGFR is used in patients with extremes of body mass index for purposes of drug dosing, the eGFR should be multiplied by the estimated BMI. [facility] CHEM PANEL Creatinine Lvl 0.8 0.5 - 1.4 12/16/2014 [facility] CHEM PANEL Calcium Lvl 8.4 8.5 - 10.5 12/16/2014 [facility] CHEM PANEL BUN 9 7 - 22 12/16/2014 [facility] CHEM PANEL Glucose Lvl 81 70 - 99 12/16/2014 [facility] CHEM PANEL CO2 27 24 - 32 12/16/2014 [facility] CHEM PANEL Albumin Lvl 3.5 3.5 - 5.0 12/16/2014 [facility] CHEM PANEL AST 28 0 - 37 12/16/2014 [facility] CHEM PANEL ALT 35 0 - 65 12/16/2014 [facility] CHEM PANEL Total Protein 7.0 6.4 - 8.4 12/16/2014 [facility] CHEM PANEL Bili Total 0.5 0.2 - 1.3 12/16/2014 [facility] CHEM PANEL B/C Ratio 11 6 - 25 12/16/2014 [facility] CHEM PANEL AGAP 12.1 10.0 - 20.0 12/16/2014 [facility] CHEM PANEL A/G Ratio 1.0 0.7 - 1.6 12/16/2014 [facility] CHEM PANEL Globulin 3.5 2.0 - 4.0 12/16/2014 [facility] HEMATOLOGY MPV 6.7 7.4 - 10.4 12/16/2014 [facility] Platelet 298 133 - 450 12/16/2014 [facility] RDW 16.1 11.5 - 14.5 12/16/2014 [facility] HEMATOLOGY MCHC 31.6 32.0 - 36.0 12/16/2014 [facility] MCH 27.1 27.0 - 31.0 12/16/2014 [facility] HEMATOLOGY MCV 85.8 80.0 - 98.0 12/16/2014 [facility] HEMATOLOGY Hct 36.8 36.0 - 48.0 12/16/2014 [facility] Hgb 11.7 12.0 - 16.0 12/16/2014 [facility] RBC 4.30 4.20 - 5.40 12/16/2014 [facility] WBC 11.2 3.7 - 10.4 12/16/2014 [facility] HEMATOLOGY PTT 24.4 22.9 - 35.8 12/16/2014 [facility] HEMATOLOGY PT 13.6 12.0 - 14.7 12/16/2014 [facility] HEMATOLOGY INR 1.01 0.85 - 1.17 12/16/2014 [facility] HEMATOLOGY Monocytes # 1.0 0.0 - 0.8 12/16/2014 [facility] HEMATOLOGY Lymphocytes # 1.8 1.0 - 5.5 12/16/2014 [facility] HEMATOLOGY Segs-Bands # 8.2 1.5 - 8.1 12/16/2014 [facility] HEMATOLOGY Basophils 0.4 0.0 - 1.0 12/16/2014 [facility] HEMATOLOGY Monocytes 9.4 2.0 - 12.0 12/16/2014 [facility] HEMATOLOGY Eosinophils 0.2 0.0 - 4.0 12/16/2014 [facility] HEMATOLOGY Lymphocytes 16.4 20.0 - 40.0 12/16/2014 [facility] HEMATOLOGY Segs 73.6 45.0 - 75.0 12/16/2014 [facility] TOXICOLOGY Etoh (%) <0.003 12/16/2014 [facility] TOXICOLOGY Ethanol Lvl <3 12/16/2014 [facility] CHEM PANEL eGFR 83 12/11/2013 <sup>1</sup>Result Comment: The eGFR is calculated using the CKD-EPI formula. In most young, healthy individuals the eGFR will be >90 mL/min/1.73m2. The eGFR declines with age. An eGFR of 60-89 may be normal in some populations, particularly the elderly, for whom the CKD-EPI formula has not been extensively validated. Use of the eGFR is not recommended in the following populations:& lt;br/>
Individuals with unstable creatinine concentrations, including patients and those with serious co-morbid conditions.

Patients with extremes in muscle mass or diet.

The data above are obtained from the National Kidney Disease Education Program (NKDEP) which additionally recommends that when the eGFR is used in patients with extremes of body mass index for purposes of drug dosing, the eGFR should be multiplied by the estimated BMI. [facility] CHEM PANEL Total Protein 6.2 6.4 - 8.4 12/11/2013 [facility] CHEM PANEL Albumin Lvl 3.0 3.5 - 5.0 12/11/2013 [facility] CHEM PANEL ALT 23 0 - 65 12/11/2013 [facility] CHEM PANEL AST 13 0 - 37 12/11/2013 [facility] CHEM PANEL Alk Phos 81 39 - 136 12/11/2013 [facility] CHEM PANEL Bili Total 0.2 0.2 - 1.3 12/11/2013 [facility] CHEM PANEL BUN 7 7 - 22 12/11/2013 [facility] CHEM PANEL Glucose Lvl 190 70 - 99 12/11/2013 <sup>2</sup>Interpretive Data: Adult reference range values reflect the clinical guidelines
of the [place] [employer]. [facility] CHEM PANEL Sodium Lvl 137 135 - 145 12/11/2013 [facility] CHEM PANEL Creatinine Lvl 0.8 0.5 - 1.4 12/11/2013 [facility] CHEM PANEL Potassium Lvl 3.4 3.5 - 5.1 12/11/2013 [facility] CHEM PANEL Chloride Lvl 105 95 - 109 12/11/2013 [facility] CHEM PANEL CO2 23 24 - 32 12/11/2013 [facility] CHEM PANEL Calcium Lvl 8.2 8.5 - 10.5 12/11/2013 [facility] CHEM PANEL AGAP 12.4 10.0 - 20.0 12/11/2013 [facility] CHEM PANEL B/C Ratio 9 6 - 25 12/11/2013 [facility] CHEM PANEL Globulin 3.2 2.0 - 4.0 12/11/2013 [facility] CHEM PANEL A/G Ratio 0.9 0.7 - 1.6 12/11/2013 [facility] HEMATOLOGY Monocytes # 0.6 0.0 - 0.8 12/11/2013 [facility] HEMATOLOGY Monocytes 9.6 2.0 - 12.0 12/11/2013 [facility] HEMATOLOGY Basophils 0.7 0.0 - 1.0 12/11/2013 [facility] HEMATOLOGY Eosinophils 1.6 0.0 - 4.0 12/11/2013 [facility] HEMATOLOGY Eosinophils # 0.1 0.0 - 0.5 12/11/2013 [facility] HEMATOLOGY Lymphocytes # 1.8 1.0 - 5.5 12/11/2013 [facility] HEMATOLOGY Segs-Bands # 3.9 1.5 - 8.1 12/11/2013 [facility] HEMATOLOGY Lymphocytes 27.8 20.0 - 40.0 12/11/2013 [facility] HEMATOLOGY Segs 60.3 45.0 - 75.0 12/11/2013 [facility] HEMATOLOGY D-Dimer 0.26 12/11/2013 <sup>3</sup>Interpretive Data: In DIC, quantitative D-Dimer is generally greater than
0.66 ug/mL FEU. Values of quantitative D-Dimer less than
0.40 ug/mL FEU have been reported to be associated with a low
probability of deep vein thrombosis/pulmonary embolism.
This test alone should not be used to rule out DVT/PE. [facility] Hgb 11.1 12.0 - 16.0 12/11/2013 [facility] MCH 29.0 27.0 - 31.0 12/11/2013 [facility] WBC 6.5 3.7 - 10.4 12/11/2013 [facility] RBC 3.84 4.20 - 5.40 12/11/2013 [facility] Platelet 244 133 - 450 12/11/2013 [facility] MPV 7.1 7.4 - 10.4 12/11/2013 [facility] RDW 17.1 11.5 - 14.5 12/11/2013 [facility] MCHC 32.8 32.0 - 36.0 12/11/2013 [facility] MCV 88.3 80.0 - 98.0 12/11/2013 [facility] Hct 34.0 36.0 - 48.0 12/11/2013 [facility] Pathology Reports No Data Provided for This Section Diagnostic Reports Report Value Date Source Spine lumbar wo contrast MRI Clinical Indication: M54.16 Radiculopathy, lumbar region - M54.16 Radiculopathy, lumbar region, low back and bilateral hip pain Comparison: L spine radiographs dated 04/18/2018, CT abdomen/pelvis dated 05/26/2016 TECHNIQUE: Multiplanar T1, T2, STIR weighted noncontrast MRI of the lumbar spine is performed on the 1.5 Adelina magnet. FINDINGS: ALIGNMENT AND GENERAL ASSESSMENT: There is normal alignment of the lumbar spine. Changes of L3 vertebral augmentation are noted. Residual 10% height loss is seen without retropulsion of fracture fragments into the central canal. The bone marrow is normal for the patient's age. Osseous hemangioma is noted in the right L4 pedicle. There is no fracture. The anterior and posterior paraspinal soft tissues are normal. The conus medullaris ends at the L1 level. For the sake of nomenclature, five lumbar vertebrae are assumed. DISC SPACES: T12-L1: The disc is normal. There is no significant central canal or foraminal stenosis. The facet joints are unremarkable. L1-L2: The disc is normal. There is no significant central canal or foraminal stenosis. The facet joints are unremarkable. L2-L3: The disc is normal. There is no significant central canal or foraminal stenosis. The facet joints are unremarkable. L3-L4: The disc is normal. There is no significant central canal or foraminal stenosis. The facet joints are unremarkable. L4-L5: Disc desiccation with mild height loss and a small left asymmetric posterior circumferential disc bulge. Mild bilateral facet arthrosis is seen. There is degenerative mild bilateral interfacet joint fluid. Ligamentum flavum hypertrophy is seen. Moderate to severe left neural foraminal narrowing is noted. L5-S1: A small right asymmetric posterior disc bulge is noted. Mild right neural foraminal narrowing is seen. The facet joints are unremarkable. OTHER: The remaining visualized soft tissue and osseous structures are grossly unremarkable. IMPRESSION: Multilevel degenerative changes result most prominently in: 1. L4/L5 moderate to severe left neural foraminal narrowing 2. L5/S1 mild right neural foraminal narrowing 3. No significant central canal effacement SL: ITH-M 06/13/2018 [facility] [place] Spine lumbar 2 or 3 views DX AP LATERAL VIEWS OF THE LUMBAR SPINE HISTORY: Low back pain. COMPARISON: 11/14/2016 lumbar spine x-ray. Evidence of prior L3 kyphoplasty this appears stable from the exam performed in 12-02 17. Diffuse facet arthropathy L3-L4 through L5-S1. Lumbar spine alignment is normal. Vertebral body height and disc space height normal. Pedicles intact. SI joints normal. IMPRESSION: Stable postprocedural changes of L3 kyphoplasty at a one year 5 month interval. Facet arthropathy. Otherwise normal exam. END IMPRESSION SL: [id number] 04/18/2018 [facility] [place] Hip 2/3 views uni w pelvis DX Left hip 2/3 views uni w pelvis DX, 04/18/2018 15:19 [employer] HISTORY: - M25.552 Pain in left hip COMPARISON: None FINDINGS: No evidence for acute fracture. Left femoral head is intact and located. Bony pelvis intact. Soft tissues unremarkable. IMPRESSION: No acute osseous abnormality SL: [id number] 04/18/2018 [facility] Hand 3 views DX 3 VIEWS OF THE LEFT HAND HISTORY: Left hand pain. COMPARISON: No priors. Bony structures of the hand are intact, no fractures or dislocations. Joint spaces maintained. Soft tissues normal No radiopaque foreign body. IMPRESSION: Normal exam.. END REPORT SL: [id number] 04/18/2018 [facility] Spine cervical 2 or 3 view DX Exam: Spine cervical 2 or 3 view DX Clinical Indication: - M48.02 Spinal stenosis, cervical region Comparison: None FINDINGS: 2 views of the cervical spine are performed. Postsurgical changes are present relating to anterior cervical discectomy and fusion of C5-C7 with anterior plate, screws, and disc graft material. Hardware appears intact without evidence of failure or loosening. Cervical alignment is within normal limits. No significant spondylolisthesis. Vertebral body heights are maintained. Normal degenerative disc disease present at C4-C5. Prevertebral soft tissues are within normal limits. The visualized lung apices are clear. IMPRESSION: Status post C5-C7 ACDF with satisfactory appearance. SL: [id number] 04/18/2018 [facility] Spine lumbar 2 or 3 views DX PROCEDURE: Lumbar spine AP and lateral radiographs. Total 3 views. INDICATION: Pain in the lumbar region. Evaluation for fracture COMPARISON: Lumbar spine AP and lateral radiographs dated 10/22/2016. FINDINGS: Patient has 5 lumbar type vertebra. Post kyphoplasty changes identified at L3 vertebral body level appears stable. No acute vertebral body compression deformity. Multilevel mild to moderate endplate osteophytes are present in the lumbar spine and lower thoracic spine. Endplate osteophytes are most prominent within the anterior lower thoracic spine. Mild sclerotic facet degenerative changes. No significant change since October 2016. Sacral arches are intact. Surgical clips overlie the medial right abdomen pelvis. Surgical clips also overlie the bilateral upper abdomen. IMPRESSION: 1. No acute abnormality identified radiographically. 2. Degenerative and postsurgical changes. SL: [id number] 11/14/2016 [facility] Spine lumbar 2 or 3 views DX Spine lumbar 2 or 3 views DX COMPARISON: CT abdomen pelvis 05/26/2016 CLINICAL HISTORY: - sacral/low back pain after falling on ; FINDINGS: 3 views of the lumbar spine are submitted for review. 5 nonrib-bearing lumbar-type vertebra are visualized. Stable post vertebroplasty changes at L3 level. Generalized osteopenia. There is no evidence for any acute fracture or subluxation. There is mild spondylosis and degenerative disc disease at L4-L5 level. The SI joints demonstrate normal morphology. IMPRESSION: No acute fracture or subluxation. SL: [id number] 10/22/2016 [facility] Sacrum/coccyx series DX Sacrum/coccyx series DX COMPARISON: CT abdomen pelvis 05/26/2016 CLINICAL HISTORY: - sacral/low back pain after falling on ; FINDINGS: 3 views of the sacrum are submitted for review. Evaluation of the sacrum and coccyx especially on the AP exam is limited due to overlying bowel gas and stool. No displaced fractures are visualized. The SI joints demonstrate normal morphology. Pelvic phleboliths. IMPRESSION: Evaluation limited as discussed above. No displaced fractures are evident. SL: [id number] 10/22/2016 [facility] Abdomen/Pelvis wo IV contrast CT Study: CT ABDOMEN AND PELVIS WITHOUT CONTRAST, WITH RENAL STONE PROTOCOL Clinical Indication: Abdominal pain, acute; r flank pain, hx renal stones Comparison: None Technique: Axial images with sagittal and coronal reconstructions were obtained without contrast, utilizing renal stone protocol. CT Radiation Dose: ZCE=4272.40 mGy-cm. FINDINGS: Double-pigtail left ureteral stent is in satisfactory position. No calculus projects adjacent to the stent. There are multiple left renal calculi, largest measuring approximately 1.2 cm. There is a tiny air bubble within the collecting system. Left perinephric stranding is noted. The right kidney is normal. The lung bases are emphysematous with interstitial scarring. There is fatty infiltration of the liver. Cholecystectomy has been performed. Common duct is not dilated. The spleen is normal. The adrenals and pancreas are not remarkable. Gastric bypass has been performed. This also increased small bowel suture line in the right lower abdomen associated with segmental moderate amount of fecal material is noted within the rectosigmoid. Uterus is absent. Urinary bladder is slightly distended. No adenopathy or ascites is seen. Marked small bowel distention. IMPRESSION: 1. Left renal stent in satisfactory position. 2. Multiple left renal calculi with perinephric stranding an small air bubble within the collecting system. No hydronephrosis. 3. Distended small bowel right lower quadrant at an anastomosis. 4. Post gastric bypass with constipation. 5. Fatty liver and cholecystectomy. [facility] Chest 1view DX Study: Chest 1view DX portable 05/26/2016 1613 hours Clinical Indication: Chest pain; hematuria Comparison: Chest 12/16/2014 FINDINGS: The heart and mediastinum are not remarkable. The lungs are incompletely inflated with minor scarring or atelectasis at the bases. No infiltrate, vascular congestion or pleural effusion is seen. Mild levoscoliosis and spondylosis are noted. Left ureteral stent is partially imaged. IMPRESSION: No acute abnormality. [facility] Carotid artery Doppler bilat US PROCEDURE: Bilateral Doppler Carotid Duplex Ultrasound. INDICATION: Syncope and collapse FINDINGS: The bilateral cervical carotid circulation was evaluated from the angles of the mandible to the base of the neck utilizing high resolution color duplex sonography. Grayscale and color-flow and spectral analysis imaging: Spectral Doppler imaging reveals patency of the major vessels with no significant atherosclerotic irregularity or turbulence. Velocity measurements (Peak systolic velocity): Right common carotid artery: 120 cm/sec Right carotid bulb: 90cm/s Right internal carotid artery: 84 cm/s ICA/CCA RATIO=0.8 Left common carotid artery: 120 cm/s Left carotid bulb: 56 cm/s Left internal carotid artery : 81 cm/s ICA/CCA RATION=0.7 The external carotid arteries are patent bilaterally. Vertebral arteries: Antegrade flow demonstrated bilaterally. CONCLUSION: There is no hemodynamically significant stenosis of the cervical carotid vessels. NOTE: Any reference to stenosis is made using 2002 Society for Radiologists in Ultrasound Consensus Panel Criteria. SL: 12/16/2014 [facility] Ribs unilateral 3 views w PA chest DX Left rib series with PA chest: FINDINGS: Mildly displaced fracture of the left ninth rib posteriorly with questionable fracture of left eighth rib posteriorly. No underlying contusion, effusion or pneumothorax is noted. Lungs are clear. Cardiac silhouette size is within normal limits. Post vertebroplasty changes mid thoracic vertebral body and upper lumbar region vertebral body. SL:12/16/2014 [facility] Brain wo contrast CT Examination: CT scan of the brain without contrast. HISTORY: Head injury COMPARISON: None available. DLP: 895.82 TECHNIQUE: Multiple axial CT images of the brain were obtained without the administration of intravenous contrast. FINDINGS: Age-related involutional changes of the brain parenchyma are seen. Mild chronic microvascular ischemic changes are present. No acute intracranial hemorrhage, mass effect, midline shift, or hydrocephalus is seen. There are no extra-axial fluid collections. The visualized paranasal sinuses and mastoid air cells are well-aerated. The optic globes and retrobulbar soft tissues are unremarkable. IMPRESSION: No acute intracranial abnormality. SL: 16 12/16/2014 [facility] Spine cervical wo contrast CT Examination: CT scan of the cervical spine without contrast. HISTORY: Pain Post injury COMPARISON: None available. DLP: 357.15 TECHNIQUE: Multiple axial CT images of the cervical spine were obtained without the administration of intravenous contrast. Multiplanar reformatted images were subsequently performed. FINDINGS: Anatomic alignment is maintained across the cervical spine. No acute fracture-dislocation is seen. Mild to moderate degenerative disc disease of cervical spine is seen. Mild facet arthrosis of the cervical spine is identified. Moderate right neuroforaminal narrowing at C5-C6 is seen. There is mild left neuroforaminal narrowing at C6- C7. No spinal canal stenosis is present. The paravertebral soft tissues are unremarkable. The visualized lung apices are normal in appearance. IMPRESSION: No evidence of acute injury to the cervical spine. SL: 12/16/2014 [facility] Facial bone wo contrast CT CT Face without Contrast: CLINICAL HISTORY: Fall TECHNIQUE : Multiple contiguous transaxial images were obtained through the face. Reformations are available in sagittal and coronal projections. FINDINGS: There is no evidence for any facial fractures. The nasal bones are intact. No air-fluid level is identified in either maxillary sinus. No significant facial swelling is evident. IMPRESSION: No fractures or other acute abnormality is noted. SL:13 12/16/2014 [facility] Consultation Notes No Data Provided for This Section Discharge Summaries No Data Provided for This Section History and Physicals No Data Provided for This Section Vital Signs Vital Sign Value Date Comments Source BMI Calculated 28.38 06/03/2018 [facility] Weight 65.909 06/03/2018 [facility] Height 152.4 cm 06/03/2018 [facility] Temperature Oral (F) 98.0 F 06/03/2018 [facility] Heart Rate 83 06/03/2018 [facility] Systolic (mm Hg) 127 06/03/2018 [facility] Diastolic (mm Hg) 86 06/03/2018 [facility] Temperature Oral (F) 98.3 F 11/14/2016 [facility] Systolic (mm Hg) 144 11/14/2016 [facility] Diastolic (mm Hg) 70 11/14/2016 [facility] Respitory Rate 18 11/14/2016 [facility] Heart Rate 78 11/14/2016 [facility] Weight 52.273 11/14/2016 [facility] Height 152.4 cm 11/14/2016 [facility] BMI Calculated 22.51 11/14/2016 [facility] Temperature Oral (F) 98.3 F 11/14/2016 [facility] Respitory Rate 18 11/14/2016 [facility] Heart Rate 87 11/14/2016 [facility] Systolic (mm Hg) 133 11/14/2016 [facility] Diastolic (mm Hg) 87 11/14/2016 [facility] Heart Rate 65 10/22/2016 [facility] Respitory Rate 18 10/22/2016 [facility] Temperature Oral (F) 98.2 F 10/22/2016 [facility] Systolic (mm Hg) 143 10/22/2016 [facility] Diastolic (mm Hg) 66 10/22/2016 [facility] BMI Calculated 22.7 10/22/2016 [facility] Weight 52.727 10/22/2016 [facility] Temperature Oral (F) 98.7 F 10/22/2016 [facility] Respitory Rate 18 10/22/2016 [facility] Height 152.4 cm 10/22/2016 [facility] Systolic (mm Hg) 134 10/22/2016 [facility] Diastolic (mm Hg) 74 10/22/2016 [facility] Heart Rate 68 10/22/2016 [facility] Temperature Oral (F) 98.1 F 05/27/2016 [facility] Heart Rate 74 05/27/2016 [facility] Respitory Rate 16 05/27/2016 [facility] Systolic (mm Hg) 119 05/27/2016 [facility] Diastolic (mm Hg) 65 05/27/2016 [facility] Heart Rate 73 05/27/2016 [facility] Temperature Oral (F) 98.2 F 05/27/2016 [facility] Systolic (mm Hg) 119 05/27/2016 [facility] Diastolic (mm Hg) 64 05/27/2016 [facility] Respitory Rate 16 05/27/2016 [facility] Systolic (mm Hg) 145 05/27/2016 [facility] Diastolic (mm Hg) 75 05/27/2016 [facility] Heart Rate 81 05/27/2016 [facility] Temperature Oral (F) 98.3 F 05/27/2016 [facility] Respitory Rate 16 05/27/2016 [facility] Weight 54.545 05/27/2016 [facility] Height 152.4 cm 05/27/2016 [facility] BMI Calculated 23.48 05/27/2016 [facility] BMI Calculated 22.9 05/26/2016 [facility] Weight 53.182 05/26/2016 [facility] Height 152.4 cm 05/26/2016 [facility] Weight 51.727 02/04/2015 [facility] BMI Calculated 22.27 02/04/2015 [facility] Height 152.4 cm 02/04/2015 [facility] Temperature Oral (F) 98.2 F 12/17/2014 [facility] Respitory Rate 16 12/17/2014 [facility] Systolic (mm Hg) 131 12/17/2014 [facility] Diastolic (mm Hg) 67 12/17/2014 [facility] Heart Rate 77 12/17/2014 [facility] Heart Rate 78 12/17/2014 [facility] Respitory Rate 17 12/17/2014 [facility] Temperature Oral (F) 99.1 F 12/17/2014 [facility] Systolic (mm Hg) 141 12/17/2014 [facility] Diastolic (mm Hg) 88 12/17/2014 [facility] Systolic (mm Hg) 124 12/17/2014 [facility] Diastolic (mm Hg) 85 12/17/2014 [facility] Heart Rate 95 12/17/2014 [facility] Respitory Rate 16 12/17/2014 [facility] Temperature Oral (F) 98.0 F 12/17/2014 [facility] BMI Calculated 20.55 12/16/2014 [facility] Height 152.4 cm 12/16/2014 [facility] Weight 47.72 12/16/2014 [facility] Weight 47.727 12/16/2014 [facility] BMI Calculated 20.55 12/16/2014 [facility] Height 152.4 cm 12/16/2014 [facility] Temperature Oral (F) 98.3 F 12/11/2013 [facility] Diastolic (mm Hg) 80 12/11/2013 [facility] Systolic (mm Hg) 125 12/11/2013 [facility] Respitory Rate 18 12/11/2013 [facility] Heart Rate 66 12/11/2013 [facility] Temperature Oral (F) 98.2 F 12/11/2013 [facility] Weight 52.273 12/11/2013 [facility] BMI Calculated 22.51 12/11/2013 [facility] Height 152.4 cm 12/11/2013 [facility] Diastolic (mm Hg) 76 12/11/2013 [facility] Heart Rate 75 12/11/2013 [facility] Systolic (mm Hg) 123 12/11/2013 [facility] Respitory Rate 18 12/11/2013 [facility] Encounters Location Location Details Encounter Type Encounter Number Reason For Visit Attending Provider ADM Date DC Date Status Source [facility] [id number] Uma Mehta 12/11/2013 12/11/2013 [facility] OBS Observation Patient [id number] Vidal Salinas 12/16/2014 12/17/2014 [facility] Bedded Outpatient [id number] Temi Quesadaes 02/04/2015 02/04/2015 [facility] Inpatient [id number] Eliud Allison Diego Jr 05/26/2016 05/28/2016 [facility] Emergency [id number] Laurentnasim TamayoEscalante 10/22/2016 10/22/2016 [facility] Emergency [id number] Yuriy Sanchez 11/14/2016 11/14/2016 [facility] Outpatient [id number] STANFORD HENNESSY 06/03/2018 [facility] Primary Care [facility] Outpatient [id number] Stanford Hennessy Jr 06/03/2018 06/04/2018 [facility] Primary Care [facility] Between Visit [id number] 06/11/2018 06/12/2018 [facility] Outpatient [facility] [place] [facility] [id number] Axel Marquez II 06/14/2018 06/14/2018 [facility] [place] Procedures Procedure Code Date Perfomer Comments Source Cervical spinal fusion [id number] 03/15/2018 [facility] [place] Cervical spinal fusion [id number] 03/15/2018 [facility] Colonoscopy<sup>1</sup> [id number] 04/15/2014 no polyps [facility] [place] Date of last PAP smear [id number] 04/15/2014 [facility] [place] Colonoscopy<sup>1</sup> [id number] 04/15/2014 no polyps [facility] Date of last PAP smear [id number] 04/15/2014 [facility] Cholecystectomy [id number] [facility] Gastric bypass [id number] [facility] Hysterectomy [id number] [facility] section [id number] [facility] [place] Cholecystectomy [id number] [facility] [place] Gastric bypass [id number] [facility] [place] Hysterectomy [id number] [facility] [place] Nephrostomy with tube drainage [id number] [facility] [place] section [id number] [facility] Cholecystectomy [id number] [facility] Gastric bypass [id number] [facility] Hysterectomy [id number] [facility] Nephrostomy with tube drainage [id number] [facility] section [id number] [facility] Assessment and Plan Assessment and Plan Date Source Extracted from:Title: Clinical Document Author: Temi Marks MD Date: 12/17/14 Cardiology [facility] Impression: Syncope Sinus tachycardia Plan: Syncope likely vasovagal in nature - pt educated on preventive measures Sinus tachycardia - possibly POTS Will follow as outpatient for tilt table test Start metoprolol 25 bid Compressive stockings Subjective: Patient seen and examined. Telemetry reviewed:NSR with sinus tachycardia NAD Alert , no CP no SOB Objective Vitals Tmp(F) Pulse BP RR SpO2 FIO2 12/17 11:03 99.1 78 141/88 17 100 --- 12/17 09:22 ---- 95 124/85 -- --- --- 12/17 09:21 ---- 87 123/80 -- --- --- 12/17 09:20 ---- 81 123/72 -- --- --- 12/17 07:36 98.0 96 117/72 16 99 --- 24 Hr Tmax: 99.1F (37.28c) at 12/17 11:03 Vital Signs are the last 5 in the past 48 hours. HEENT: Neck Supple, No JVD, no carotid bruits CVS: Regular rate, Normal S1S2 no murmur rubs or gallops LUNGS: Clear to auscultation ABD: Soft, Non-tender, + BS, no bruits or organomegaly EXT: No ankle edema, palpable distal pulses Skin: No ulcers Neuro: Grossly non-focal Labs (Last four charted values) WBC H 11.2 (DEC 16) Hgb L 11.7 (DEC 16) Hct 36.8 (DEC 16) Plt 298 (DEC 16) Na 138 (DEC 16) K 4.1 (DEC 16) CO2 27 (DEC 16) Cl 103 (DEC 16) Cr 0.8 (DEC 16) BUN 9 (DEC 16) Glucose Random 81 (DEC 16) Mg 1.8 (DEC 17) L 1.4 (DEC 16) Phos 3.0 (DEC 16) Ca L 8.4 (DEC 16) PT 13.7 (DEC 16) 13.6 (DEC 16) INR 1.02 (DEC 16) 1.01 (DEC 16) PTT L 21.9 (DEC 16) 24.4 (DEC 16) Troponin <0.02 (DEC 16) CK MB 1.1 (DEC 16) Total CK 135 (DEC 16) Scheduled Meds (5): 12/18/14 DULoxetine (Cymbalta) 60 mg PO Daily 12/17/14 aspirin (aspirin 81 mg tablet, enteric coated) 81 mg PO Daily 12/16/14 lidocaine topical (Lidoderm 5% topical film (patch)) 1 patch TOP Daily 12/16/14 nicotine 21 mg TOP Daily 12/17/14 remove patch 1 patch TOP Bedtime 12/17/2014 [facility] Plan of Care No Data Provided for This Section Social History Social History Date Source Social History TypeResponse Employment/School Other: , 2 daughters. Both daughters live in [place]. Smoking Status Current every day smoker; Type: Cigarettes; Previous treatment: None; Ready to change: No; Concerns about tobacco use in household: No; Lives with someone who smokes; Cigarette Smoking Last 365 Days No; Reg Smoking Cessation Counseling Yes; Tobacco use per day: 1; entered on: 06/03/18 06/03/2018 [facility] Social History TypeResponse Employment/School Other: , 2 daughters. Both daughters live in [place]. Smoking Status Current every day smoker; Type: Cigarettes; Previous treatment: None; Ready to change: No; Concerns about tobacco use in household: No; Lives with someone who smokes; Cigarette Smoking Last 365 Days No; Reg Smoking Cessation Counseling Yes; Tobacco use per day: 1; entered on: 06/03/18 06/03/2018 [facility] Social History TypeResponse Smoking Status Current every day smoker; Type: Cigarettes; Tobacco use per day: 1; Previous treatment: None; Ready to change: No; Concerns about tobacco use in household: No; Lives with someone who smokes; Cigarette Smoking Last 365 Days No; Reg Smoking Cessation Counseling Yes 11/14/2016 [facility] Family History No Data Provided for This Section Advance Directives No Data Provided for This Section Functional Status No Data Provided for This Section
--- OUTSIDE RECORDS SUMMARY | 2018-10-12 11:42 | XMS REPORT | Summary of Care ---
Author Author [facility] Organization [facility] Address Unknown Phone Unavailable Encounter ROGER [place](JOLENE) [id number] Date(s): 10/22/16 - 10/22/16 [facility] [address] [place] [address]- [phone] Discharge Diagnosis: Sacral contusion Discharge Disposition: Home or Self Care Attending Physician: Laurent Escalante MD Vital Signs Most recent to 1 2 oldest [Reference Range]: Height 152.4 cm (10/22/16 12:58 PM) Temperature Oral 98.2 DegF 98.7 DegF [96.4-99.1 DegF] (10/22/16 2:30 PM) (10/22/16 12:58 PM) Blood Pressure 143/66 mmHg 134/74 mmHg [90-140/60-90 mmHg] *HI* (10/22/16 12:58 PM) (10/22/16 2:30 PM) Respiratory Rate 18 BRMIN 18 BRMIN [14-20 BRMIN] (10/22/16 2:30 PM) (10/22/16 12:58 PM) Peripheral Pulse 65 bpm 68 bpm Rate [60-100 bpm] (10/22/16 2:30 PM) (10/22/16 12:58 PM) Weight 52.727 kg (10/22/16 12:58 PM) Body Mass Index 22.7 m2 (10/22/16 12:58 PM) Problem List Condition Effective Dates Status Health Status Informant Chest Resolved pain(Confirmed) Degenerative disc Resolved disease(Confirmed) Depression(Confirmed Resolved ) Fibromyalgia(Confirm Resolved ed) Kidney Resolved stones(Confirmed) Shortness of Resolved breath(Confirmed) Smoker(Confirmed) Resolved Syncope(Confirmed) Resolved Tachycardia(Confirme Resolved d) Allergies, Adverse Reactions, Alerts Substance Reaction Severity Status Cipro Active codeine Active Medications morphine Sulfate 4 mg, Route: IM, ONCE, Dosing Weight 52.727, kg, Priority: STAT, Start date: 01/29 14:22:00 CDT, Stop date: 10/22/16 14:22:00 CDT Start Date: 10/22/16 Stop Date: 10/22/16 Status: Completed Newcomb 7.5/325 oral tablet 1 tab, Route: PO, Drug Form: TAB, Dosing Weight 52.727, kg, ONCE, STAT, Start da te: 10/22/16 13:07:00 CDT, Stop date: 10/22/16 13:07:00 CDT Start Date: 10/22/16 Stop Date: 10/22/16 Status: Completed Ultram 50 mg oral tablet 100 mg=2 tab, PO, Q6H, PRN pain, X 4 day, # 32 tab, 0 Refill(s) Start Date: 10/22/16 Stop Date: 10/26/16 Status: Ordered Zofran ODT 4 mg, Route: PO, Drug form: TABDIS, ONCE, Dosing Weight 52.727, kg, Priority: ST AT, Start date: 10/22/16 14:22:00 CDT, Stop date: 10/22/16 14:22:00 CDT Start Date: 10/22/16 Stop Date: 10/22/16 Status: Completed Results No data available for this section Immunizations No data available for this section Procedures Procedure Date Related Diagnosis Body Site Cholecystectomy Gastric bypass Hysterectomy Social History Social History Type Response Smoking Status Never smoker; Exposure to Tobacco Smoke None; Cigarette Smoking Last 365 Days No; Reg Smoking Cessation Counseling No Assessment and Plan No data available for this section
--- OUTSIDE RECORDS SUMMARY | 2018-10-12 11:42 | XMS REPORT | Summary of Care ---
Author Author [facility] Organization [facility] Address Unknown Phone Unavailable Encounter ROGER [place](JOLENE) [id number] Date(s): 06/03/18 - 06/03/18 [facility] [address] [facility], [address] [place], [place] [address]- [phone] Discharge Disposition: Home or Self Care Attending Physician: Maverick Velasquez MD Vital Signs Most recent to 1 oldest [Reference Range]: Height 152.4 cm (06/03/18 8:59 AM) Temperature Oral 98.0 DegF [96.4-99.1 DegF] (06/03/18 8:59 AM) Blood Pressure 127/86 mmHg [90-140/60-90 mmHg] (06/03/18 8:59 AM) Peripheral Pulse 83 bpm Rate [60-100 bpm] (06/03/18 8:59 AM) Weight 65.909 kg (06/03/18 8:59 AM) Body Mass Index 28.38 m2 (06/03/18 8:59 AM) Problem List Condition Effective Dates Status Health Status Informant Chest Resolved pain(Confirmed) Degenerative disc Resolved disease(Confirmed) Depression(Confirmed Resolved ) Fibromyalgia(Confirm Resolved ed) 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 Depression and Anxiety(Confirmed) Kidney Resolved stones(Confirmed) Opioid Active dependence(Confirmed ) Moderate recurrent Active major depression(Confirmed ) Shortness of Resolved breath(Confirmed) Smoker(Confirmed) Resolved Syncope(Confirmed) Resolved Tachycardia(Confirme Resolved d) Allergies, Adverse Reactions, Alerts Substance Reaction Severity Status codeine Active Cipro Active Medications Chantix 1 mg oral tablet 1 mg=1 tab, PO, BID, to start: half tab once a day x4days, then half tab twice a [id number], then whole tab twice daily, # 180 tab, 2 Refill(s), Pharmacy: [facility] Start Date: 06/03/18 Status: Ordered Gralise 600 mg/24 hours oral tablet 600 mg=1 tab, PO, Daily, # 90 tab, 1 Refill(s) Start Date: 06/03/18 Stop Date: 06/03/18 Status: Discontinued Shingrix intramuscular injection 0.5 mL, IM, ONCE, repeat dose in 2 to 6 months, # 1 mL, 1 Refill(s) Start Date: 06/03/18 Status: Ordered Results No data available for this section Immunizations No data available for this section Procedures Procedure Date Related Diagnosis Body Site Status Cervical spinal fusion 03/2018 Completed Colonoscopy1 2014 Completed Date of last PAP smear 2014 Completed section Completed Cholecystectomy Completed Gastric bypass Completed Hysterectomy Completed Nephrostomy with tube drainage Completed 1no polyps Social History Social History Type Response Employment/School Other: , 2 daughters. Both daughters live in [place]. Smoking Status Current every day smoker; Type: Cigarettes; Previous treatment: None; Ready to change: No; Concerns about tobacco use in household: No; Lives with someone who smokes; Cigarette Smoking Last 365 Days No; Reg Smoking Cessation Counseling Yes; Tobacco use per day: 1; entered on: 06/03/18 Assessment and Plan No data available for this section
--- OUTSIDE RECORDS SUMMARY | 2018-10-12 11:43 | XMS REPORT | Summary of Care ---
Author Organization Unknown Address Unknown Phone Unavailable Encounter ROGER [place](JOLENE) [id number] Date(s): 12/11/13 - 12/11/13 [facility] [address] [place], [place] [address] - [facility] Discharge Diagnosis: Chest wall pain Discharge Disposition: Home Physician Attending: Uma Mehta DO Reason for Visit FLANK PAIN Vital Signs Most recent to 1 2 oldest [Reference Range]: Height 152.4 cm (12/11/13 2:56 PM) Temperature Oral 98.3 DegF 98.2 DegF [96.4-99.1 DegF] (12/11/13 5:02 PM) (12/11/13 2:56 PM) Systolic Blood 125 mmHg 123 mmHg Pressure [90-140 (12/11/13 5:02 PM) (12/11/13 2:56 PM) mmHg] Diastolic Blood 80 mmHg 76 mmHg Pressure [60-90 (12/11/13 5:02 PM) (12/11/13 2:56 PM) mmHg] Respiratory Rate 18 BRMIN 18 BRMIN [14-20 BRMIN] (12/11/13 5:02 PM) (12/11/13 2:56 PM) Peripheral Pulse 66 bpm 75 bpm Rate [60-100 bpm] (12/11/13 5:02 PM) (12/11/13 2:56 PM) Weight 52.273 kg (12/11/13 2:56 PM) Body Mass Index 22.51 m2 (12/11/13 2:56 PM) Problem List Condition Effective Dates Status Health Status Informant Fibromyalgia(Confirm Resolved ed) Kidney Resolved stones(Confirmed) Allergies, Adverse Reactions, Alerts Substance Reaction Severity Status Cipro Active Medications morphine Sulfate 4 mg, Route: IVP, Drug form: INJ, ONCE, Dosing Weight 52.273, kg, Priority: STAT , Start date: 12/11/13 16:46:00, Stop date: 12/11/13 16:46:00 Start Date: 12/11/13 Stop Date: 12/11/13 Status: Completed morphine Sulfate 4 mg, Route: IVP, ONCE, Dosing Weight 52.273, kg, Priority: STAT, Start date: 15:47:00, Stop date: 12/11/13 15:47:00 Start Date: 12/11/13 Stop Date: 12/11/13 Status: Completed naproxen 500 mg oral tablet 500 mg=1 tab, PO, Q12H, Pain, # 20 tab, 0 Refill(s) Start Date: 12/11/13 Stop Date: 12/21/13 Status: Ordered Fletcher 5/325 oral tablet 1-2 tab, PO, Q4-6H, Pain, # 15 tab, 0 Refill(s) Start Date: 12/11/13 Stop Date: 12/16/13 Status: Ordered ondansetron 4 mg, Route: IVP, ONCE, Dosing Weight 52.273, kg, Priority: STAT, Start date: 15:47:00, Stop date: 12/11/13 15:47:00 Start Date: 12/11/13 Stop Date: 12/11/13 Status: Completed Saline Flush 0.9% 10 mL, Route: IVP, Drug Form: INJ, Dosing Weight 52.273, kg, PRN, PRN Line Flush , Start date: 12/11/13 15:47:00, Duration: 30 day, Stop date: 01/10/14 15:46:00 Notes: (Same as: BD Posiflush) Start Date: 12/11/13 Stop Date: 12/11/13 Status: Discontinued Results ELECTROLYTES Most recent to 1 oldest [Reference Range]: Sodium Lvl [135-145 137 mEq/L mEq/L] (12/11/13 4:10 PM) Potassium Lvl 3.4 mEq/L [3.5-5.1 mEq/L] *LOW* (12/11/13 4:10 PM) Chloride Lvl [95-109 105 mEq/L mEq/L] (12/11/13 4:10 PM) CO2 [24-32 mEq/L] 23 mEq/L *LOW* (12/11/13 4:10 PM) AGAP [10.0-20.0 12.4 mEq/L mEq/L] (12/11/13 4:10 PM) CHEM PANEL Most recent to 1 oldest [Reference Range]: Creatinine Lvl 0.8 mg/dL [0.5-1.4 mg/dL] (12/11/13 4:10 PM) eGFR 83 mL/min/1.73m2 1 *NA* (12/11/13 4:10 PM) BUN [7-22 mg/dL] 7 mg/dL (12/11/13 4:10 PM) B/C Ratio [6-25] 9 (12/11/13 4:10 PM) Glucose Lvl [70-99 190 mg/dL 2 mg/dL] *HI* (12/11/13 4:10 PM) Total Protein 6.2 g/dL [6.4-8.4 g/dL] *LOW* (12/11/13 4:10 PM) Albumin Lvl [3.5-5.0 3.0 g/dL g/dL] *LOW* (12/11/13 4:10 PM) Globulin [2.0-4.0 3.2 g/dL g/dL] (12/11/13 4:10 PM) A/G Ratio [0.7-1.6] 0.9 (12/11/13 4:10 PM) Calcium Lvl 8.2 mg/dL [8.5-10.5 mg/dL] *LOW* (12/11/13 4:10 PM) ALT [0-65 unit/L] 23 unit/L (12/11/13 4:10 PM) AST [0-37 unit/L] 13 unit/L (12/11/13 4:10 PM) Alk Phos [39-136 81 unit/L unit/L] (12/11/13 4:10 PM) Bili Total [0.2-1.3 0.2 mg/dL mg/dL] (12/11/13 4:10 PM) 1Result Comment: The eGFR is calculated using the [...] from the National Kidney Disease Education Program ( NKDEP) which additionally recommends that when the eGFR is used in patients with extremes of body mass index for purposes of drug dosing, the eGFR should be mul tiplied by the estimated BMI. 2Interpretive Data: Adult reference range values reflect the clinical guidelines of the [place] [employer]. HEMATOLOGY Most recent to 1 oldest [Reference Range]: WBC [3.7-10.4 K/CMM] 6.5 K/CMM (12/11/13 4:10 PM) RBC [4.20-5.40 3.84 M/CMM M/CMM] *LOW* (12/11/13 4:10 PM) Hgb [12.0-16.0 g/dL] 11.1 g/dL *LOW* (12/11/13 4:10 PM) Hct [36.0-48.0 %] 34.0 % *LOW* (12/11/13 4:10 PM) MCV [80.0-98.0 fL] 88.3 fL (12/11/13 4:10 PM) MCH [27.0-31.0 pg] 29.0 pg (12/11/13 4:10 PM) MCHC [32.0-36.0 32.8 g/dL g/dL] (12/11/13 4:10 PM) RDW [11.5-14.5 %] 17.1 % *HI* (12/11/13 4:10 PM) Platelet [133-450 244 K/CMM K/CMM] (12/11/13 4:10 PM) MPV [7.4-10.4 fL] 7.1 fL *LOW* (12/11/13 4:10 PM) Segs [45.0-75.0 %] 60.3 % (12/11/13 4:10 PM) Lymphocytes 27.8 % [20.0-40.0 %] (12/11/13 4:10 PM) Monocytes [2.0-12.0 9.6 % %] (12/11/13 4:10 PM) Eosinophils [0.0-4.0 1.6 % %] (12/11/13 4:10 PM) Basophils [0.0-1.0 0.7 % %] (12/11/13 4:10 PM) Segs-Bands # 3.9 K/CMM [1.5-8.1 K/CMM] (12/11/13 4:10 PM) Lymphocytes # 1.8 K/CMM [1.0-5.5 K/CMM] (12/11/13 4:10 PM) Monocytes # [0.0-0.8 0.6 K/CMM K/CMM] (12/11/13 4:10 PM) Eosinophils # 0.1 K/CMM [0.0-0.5 K/CMM] (12/11/13 4:10 PM) D-Dimer 0.26 ug/mL FEU 3 *NA* (12/11/13 4:10 PM) 3Interpretive Data: In DIC, quantitative D-Dimer is generally greater than 0.66 ug/mL FEU. Values of quantitative D-Dimer less than 0.40 ug/mL FEU have been reported to be associated with a low probability of deep vein thrombosis/pulmonary embolism. This test alone should not be used to rule out DVT/PE. Medications Administered During Your Visit No data available for this section Immunizations No data available for this section Procedures Procedure Type Body Site Date of Procedure Related Diagnosis Cholecystectomy
--- OUTSIDE RECORDS SUMMARY | 2018-10-12 11:43 | XMS REPORT | Summary of Care ---
Author Author [facility] Organization [facility] Address Unknown Phone Unavailable Encounter ROGER [place](JOLENE) [id number] Date(s): 05/26/16 - 05/27/16 [facility] [address] [place] [address]- Discharge Disposition: Home or Self Care Attending Physician: Eliud Nelson MD Admitting Physician: Eliud Nelson MD Vital Signs 1 2 3 Most recent to oldest [Reference Range]: 152.4 cm (05/26/16 11:20 PM) 152.4 cm (05/26/16 4:01 PM) Height 98.1 DegF (05/27/16 4:19 PM) 98.2 DegF (05/27/16 12:20 PM) 98.3 DegF (05/27/16 8:01 AM) Temperature Oral [96.4-99.1 DegF] 119/65 mmHg (05/27/16 4:19 PM) 119/64 mmHg (05/27/16 12:20 PM) 145/75 mmHg *HI* (05/27/16 11:23 AM) Blood Pressure [90-140/60-90 mmHg] 16 BRMIN (05/27/16 4:19 PM) 16 BRMIN (05/27/16 12:20 PM) 16 BRMIN (05/27/16 8:01 AM) Respiratory Rate [14-20 BRMIN] 74 bpm (05/27/16 4:19 PM) 73 bpm (05/27/16 12:20 PM) 81 bpm (05/27/16 8:01 AM) Peripheral Pulse Rate [60-100 bpm] 54.545 kg (05/26/16 11:20 PM) 53.182 kg (05/26/16 4:01 PM) Weight 23.48 m2 (05/26/16 11:20 PM) 22.9 m2 (05/26/16 4:01 PM) Body Mass Index Problem List Condition Effective Dates Status Health Status Informant Chest Resolved pain(Confirmed) Degenerative disc Resolved disease(Confirmed) Depression(Confirmed Resolved ) Fibromyalgia(Confirm Resolved ed) Kidney Resolved stones(Confirmed) Shortness of Resolved breath(Confirmed) Smoker(Confirmed) Resolved Syncope(Confirmed) Resolved Tachycardia(Confirme Resolved d) Allergies, Adverse Reactions, Alerts Substance Reaction Severity Status Cipro Active codeine Active Medications Ambien 5 mg, 1 tab, Route: PO, Drug form: TAB, Bedtime, Dosing Weight 54.545, kg, PRN a s needed for sleep, Start date: 05/27/16 0:59:00 [employer], Stop date: 06/24/16 21:00: 00 CDT Notes: (Same As: Ambien) Start Date: 05/27/16 Stop Date: 05/27/16 Status: Discontinued atropine 0.5 mg, 5 mL, Route: IV, Drug form: INJ, PRN, Dosing Weight 54.545, kg, PRN Dale ycardia, Start date: 05/27/16 3:34:00 [employer], Duration: 30 day, Stop date: 06/26/16 4:33:00 CDT, symptomatic bradycardia HR<40 Start Date: 05/27/16 Stop Date: 05/27/16 Status: Discontinued cefepime 2 gm, Route: IVPB, ONCE, Dosing Weight 53.182, kg, Priority: STAT, Start date: 0 05/26/16 16:31:00 [employer], Stop date: 05/26/16 16:31:00 [employer] Start Date: 05/26/16 Stop Date: 05/26/16 Status: Completed clonazePAM 0.5 mg, PO, Daily, PRN Anxiety, 0 Refill(s) Start Date: 05/26/16 Status: Ordered Colace 100 mg oral capsule 200 mg, 2 cap, Route: PO, Drug form: CAP, BID, Dosing Weight 54.545, kg, Start d ate: 05/27/16 17:00:00 [employer], Duration: 30 day, Stop date: 06/26/16 9:00:00 CDT Notes: (Same as: Colace) (Do Not Crush) Start Date: 05/27/16 Stop Date: 05/27/16 Status: Discontinued Cymbalta 60 mg, 2 cap, Route: PO, Drug form: DRC, Bedtime, Dosing Weight 54.545, kg, Star t date: 05/27/16 0:59:00 [employer], Duration: 30 day, Stop date: 06/25/16 21:00:00 CDT Notes: (Same as: Cymbalta) (Do Not Crush) Start Date: 05/27/16 Stop Date: 05/27/16 Status: Discontinued magnesium citrate 1.745 g/30 mL oral liquid 300 ml, Route: PO, Drug Form: LIQ, Dosing Weight 54.545, kg, ONCE, Start date: 0 05/27/16 12:01:00 [employer], Stop date: 05/27/16 12:01:00 [employer] Notes: (Same as: Citrate of Magnesia)Concentration: 1.745 gm / 30 mL Start Date: 05/27/16 Stop Date: 05/27/16 Status: Completed morphine Sulfate 4 mg, 1 mL, Route: IVP, Drug form: SOLN, Q4H, Dosing Weight 53.182, kg, PRN Pain Score 7-10, Start date: 05/26/16 21:10:00 [employer], Duration: 30 day, Stop date: 21:09:00 CDT Notes: (Same as:MORPhine Sulfate) Start Date: 05/26/16 Stop Date: 05/27/16 Status: Discontinued Nitrostat 0.4 mg sublingual tablet 0.4 mg, 1 tab, Route: SL, Drug form: TAB, Q5Min, Dosing Weight 54.545, kg, PRN C hest Pain, Start date: 05/27/16 3:34:00 [employer], Duration: 3 doses or times, Stop da te: Limited # of times Notes: (Same as:Nitroquick, Nitrostat)"Do Not Crush" Sublingual tablet Start Date: 05/27/16 Stop Date: 05/27/16 Status: Discontinued Met[place]ora 10/325 oral tablet 2 tab, Route: PO, Drug Form: TAB, Dosing Weight 53.182, kg, ONCE, STAT, Start da te: 05/26/16 17:35:00 [employer], Stop date: 05/26/16 17:35:00 [employer] Start Date: 05/26/16 Stop Date: 05/26/16 Status: Completed NS (Bolus) IV 1,000 mL, 1,000 ml/hr, Infuse Over: 1 hr, Route: IV, 1,000, Drug form: INJ, ONCE , Priority: STAT, Dosing Weight 53.182 kg, Start date: 05/26/16 16:31:00 [employer], Du ration: 1 doses or times, Stop date: 05/26/16 16:31:00 [employer] Start Date: 05/26/16 Stop Date: 05/26/16 Status: Completed NS (Bolus) IV 1,000 mL, 1,000 ml/hr, Infuse Over: 1 hr, Route: IV, 1,000, Drug form: INJ, ONCE , Priority: STAT, Dosing Weight 53.182 kg, Start date: 05/26/16 21:11:00 [employer], Du ration: 1 doses or times, Stop date: 05/26/16 21:11:00 [employer] Start Date: 05/26/16 Stop Date: 05/26/16 Status: Completed ondansetron 4 mg, 2 mL, Route: IVP, Drug form: INJ, Q6H, Dosing Weight 53.182, kg, PRN Nause a & Vomiting, Start date: 05/26/16 21:10:00 [employer], Duration: 30 day, Stop date: 06/25/16 21:09:00 CDT Notes: (Same as: Liu) MEDICATION WASTE Product Size: 4 mgProduct Was gunjan: ___ mg Start Date: 05/26/16 Stop Date: 05/27/16 Status: Discontinued oxyCONTIN 15 mg oral tablet, extended release 15 mg=1 tab, PO, Bedtime, 0 Refill(s) Start Date: 05/26/16 Status: Ordered Paxil PO, Daily, 0 Refill(s) Start Date: 05/26/16 Status: Ordered PLease do not give Vanco prior to trough is collected PLease do not give Vanco prior to trough is collected, Reminder, Drug form: MISC , Route: MISC, ONCE, 05/28/16 10:30:00 [employer], Stop date: 05/28/16 10:30:00 [employer] Start Date: 05/28/16 Stop Date: 05/27/16 Status: Canceled Saline Flush 0.9% 10 mL, Route: IVP, Drug Form: INJ, Dosing Weight 53.182, kg, PRN, PRN Line Flush , Start date: 05/26/16 16:06:00 [employer], Duration: 30 day, Stop date: 06/25/16 17:05 :00 CDT Notes: (Same as: BD Posiflush) Start Date: 05/26/16 Stop Date: 05/27/16 Status: Discontinued Saline Flush 0.9% 10 ml, Route: IVP, Drug Form: INJ, Dosing Weight 53.182, kg, PRN, PRN Line Flush , Start date: 05/26/16 21:10:00 [employer], Duration: 30 day, Stop date: 06/25/16 22:09 :00 CDT Notes: (Same as: BD Posiflush) Start Date: 05/26/16 Stop Date: 05/27/16 Status: Discontinued sodium chloride 0.9% 1000 ml INJ 1,000 mL 1,000 mL, Rate: 100 ml/hr, Infuse over: 10 hr, Route: IV, Dosing Weight 53.182 k g, Total Volume: 1,000, Start date: 05/26/16 21:10:00 [employer], Stop date: 06/25/16 2 1:09:00 CDT Start Date: 05/26/16 Stop Date: 05/27/16 Status: Discontinued Sodium Chloride 0.9% IV (Sodium Chloride 0.9% (Bolus) IV) 1,000 mL, 2,000 ml/hr, Route: IV, ONCE, Priority: STAT, Dosing Weight 53.182 kg, Start date: 05/26/16 16:06:00 [employer], Duration: 1 doses or times, Stop date: 05/26 16:06:00 [employer] Start Date: 05/26/16 Stop Date: 05/26/16 Status: Completed trazodone 150 mg, 3 tab, Route: PO, Drug form: TAB, Bedtime, Dosing Weight 54.545, kg, Sta rt date: 05/27/16 1:00:00 [employer], Duration: 30 day, Stop date: 06/25/16 21:00:00 CD T Notes: (Same As: Mary) Start Date: 05/27/16 Stop Date: 05/27/16 Status: Discontinued vancomycin 1,000 mg, Route: IVPB, Drug form: INJ, [id number], Dosing Weight 53.182, kg, Start date: 05/26/16 22:00:00 [employer], Duration: 30 day, Stop date: 06/25/16 10:00:00 CDT Start Date: 05/26/16 Stop Date: 05/26/16 Status: Deleted vancomycin + sodium chloride 0.9% INJ 250 mL 1,000 mg, Route: IVPB, [id number], Dosing Weight 53.182, kg, Start date: 05/26/16 2 2:00:00 [employer], Duration: 30 day, Stop date: 06/25/16 11:00:00 CDT Notes: TIME CRITICAL MEDICATION(Same As: Vancocin)Infusion rate< 1000 mg: infuse over 1 [id number] - 1500 mg: infuse over 1.5 [id number] - 2000 mg: infuse over 2 hours> 2001 mg: infuse over 2.5 hours MEDICATION WASTE Product Size: 1000 mgProduct Wasted: ___ mg Start Date: 05/26/16 Stop Date: 05/27/16 Status: Discontinued VESIcare PO, Daily, 0 Refill(s) Start Date: 05/26/16 Status: Ordered Zosyn + sodium chloride 0.9% INJ 100 mL 3.375 gm, Route: IVPB, [id number], Dosing Weight 53.182, kg, CrCl >=20 ml/min infuse over 4 hours, Start date: 05/26/16 22:00:00 [employer], Duration: 30 day, Stop date: 06/25/16 16:00:00 CDT Notes: (Same as: Zosyn)Dosing based on Piperacillin component MEDICATION WA WILLA Product Size: 3375 mgProduct Wasted: ___ mg Start Date: 05/26/16 Stop Date: 05/27/16 Status: Discontinued Results ELECTROLYTES Most recent to 1 2 oldest [Reference Range]: Sodium Lvl [135-145 138 mEq/L 137 mEq/L mEq/L] (05/27/16 6:36 AM) (05/26/16 4:52 PM) Potassium Lvl 3.4 mEq/L 3.6 mEq/L [3.5-5.1 mEq/L] *LOW* (05/26/16 4:52 PM) (05/27/16 6:36 AM) Chloride Lvl [95-109 107 mEq/L 103 mEq/L mEq/L] (05/27/16 6:36 AM) (05/26/16 4:52 PM) CO2 [24-32 mEq/L] 19 mEq/L 24 mEq/L *LOW* (05/26/16 4:52 PM) (05/27/16 6:36 AM) AGAP [10.0-20.0 15.4 mEq/L 13.6 mEq/L mEq/L] (05/27/16 6:36 AM) (05/26/16 4:52 PM) CHEM PANEL Most recent to 1 2 oldest [Reference Range]: Creatinine Lvl 0.55 mg/dL 0.72 mg/dL [0.50-1.40 mg/dL] (05/27/16 6:36 AM) (05/26/16 4:52 PM) eGFR 104 mL/min/1.73m2 1 93 mL/min/1.73m2 2 *NA* *NA* (05/27/16 6:36 AM) (05/26/16 4:52 PM) BUN [7-22 mg/dL] 5 mg/dL 7 mg/dL *LOW* (05/26/16 4:52 PM) (05/27/16 6:36 AM) B/C Ratio [6-25] 9 10 (05/27/16 6:36 AM) (05/26/16 4:52 PM) Glucose Lvl [70-99 71 mg/dL 97 mg/dL mg/dL] (05/27/16 6:36 AM) (05/26/16 4:52 PM) Total Protein 5.4 g/dL 6.3 g/dL [6.4-8.4 g/dL] *LOW* *LOW* (05/27/16 6:36 AM) (05/26/16 4:52 PM) Albumin Lvl [3.5-5.0 2.0 g/dL 2.5 g/dL g/dL] *LOW* *LOW* (05/27/16 6:36 AM) (05/26/16 4:52 PM) Globulin [2.7-4.2 3.4 g/dL 3.8 g/dL g/dL] (05/27/16 6:36 AM) (05/26/16 4:52 PM) A/G Ratio [0.7-1.6] 0.6 0.7 *LOW* (05/26/16 4:52 PM) (05/27/16 6:36 AM) Calcium Lvl 6.7 mg/dL 3 7.7 mg/dL [8.5-10.5 mg/dL] *CRIT* *LOW* (05/27/16 6:36 AM) (05/26/16 4:52 PM) ALT [0-65 unit/L] 11 unit/L 14 unit/L (05/27/16 6:36 AM) (05/26/16 4:52 PM) AST [0-37 unit/L] 11 unit/L 11 unit/L (05/27/16 6:36 AM) (05/26/16 4:52 PM) Alk Phos [39-136 90 unit/L 93 unit/L unit/L] (05/27/16 6:36 AM) (05/26/16 4:52 PM) Bili Total [0.2-1.3 0.5 mg/dL 0.5 mg/dL mg/dL] (05/27/16 6:36 AM) (05/26/16 4:52 PM) Lactic Acid Lvl 0.9 mMol/L [0.5-2.2 mMol/L] (05/26/16 4:52 PM) Procalcitonin Lvl 0.86 ng/mL [0.00-0.10 ng/mL] *HI* (05/26/16 4:52 PM) 1Result Comment: The eGFR is calculated [...] be mul tiplied by the estimated BMI. 2Result Comment: The eGFR is calculated using the [...] be mul tiplied by the estimated BMI. 3Result Comment: Critical Result(s) called to Akash Munguia at 05/27/2016 08:42 by celeste. Read back OK. CARDIAC ENZYMES Most recent to 1 2 oldest [Reference Range]: Total CK [12-191 33 unit/L unit/L] (05/26/16 4:52 PM) CK MB [0.5-3.6 0.5 ng/mL ng/mL] (05/26/16 4:52 PM) CK MB Index 1.5 [0.0-2.5] (05/26/16 4:52 PM) Troponin-I <0.02 ng/mL [0.00-0.40 ng/mL] (05/26/16 4:52 PM) URINE AND STOOL Most recent to 1 2 oldest [Reference Range]: UA Turbidity [Clear] Marked *ABN* (05/26/16 7:44 PM) UA Color Red *NA* (05/26/16 7:44 PM) UA pH [5.0-8.0] 6.0 (05/26/16 7:44 PM) UA Spec Grav 1.010 [<=1.030] (05/26/16 7:44 PM) UA Glucose [Negative Negative mg/dL mg/dL] *NA* (2/11/17 7:44 PM) UA Blood [Negative] Large *ABN* (05/26/16 7:44 PM) UA Ketones [Negative Trace mg/dL mg/dL] *ABN* (05/26/16 7:44 PM) UA Protein [Negative 100 mg/dL mg/dL] *ABN* (05/26/16 7:44 PM) UA Urobilinogen <=1.0 mg/dL [0.1-1.0 mg/dL] *NA* (05/26/16 7:44 PM) UA Bili [Negative] Negative *NA* (05/26/16 7:44 PM) UA Leuk Est Large [Negative] *ABN* (05/26/16 7:44 PM) UA Nitrite Negative [Negative] (05/26/16 7:44 PM) UA WBC [0-5 /HPF] >182 /HPF *HI* (05/26/16 7:44 PM) UA RBC [0-2 /HPF] >182 /HPF *HI* (05/26/16 7:44 PM) UA Bacteria [None Occasional /HPF Seen /HPF] *NA* (05/26/16 7:44 PM) UA Sq Epi [Few /LPF] Many /LPF *ABN* (05/26/16 7:44 PM) UA Mucus [None Seen Few /LPF /LPF] *NA* (05/26/16 7:44 PM) HEMATOLOGY Most recent to 1 2 oldest [Reference Range]: WBC [3.7-10.4 K/CMM] 11.8 K/CMM 13.2 K/CMM *HI* *HI* (05/27/16 6:36 AM) (05/26/16 4:52 PM) RBC [4.20-5.40 3.04 M/CMM 3.48 M/CMM M/CMM] *LOW* *LOW* (05/27/16 6:36 AM) (05/26/16 4:52 PM) Hgb [12.0-16.0 g/dL] 9.2 g/dL 10.6 g/dL *LOW* *LOW* (05/27/16 6:36 AM) (05/26/16 4:52 PM) Hct [36.0-48.0 %] 27.9 % 32.2 % *LOW* *LOW* (05/27/16 6:36 AM) (05/26/16 4:52 PM) MCV [80.0-98.0 fL] 91.8 fL 92.3 fL (05/27/16 6:36 AM) (05/26/16 4:52 PM) MCH [27.0-31.0 pg] 30.3 pg 30.3 pg (05/27/16 6:36 AM) (05/26/16 4:52 PM) MCHC [32.0-36.0 32.9 g/dL 32.9 g/dL g/dL] (05/27/16 6:36 AM) (05/26/16 4:52 PM) RDW [11.5-14.5 %] 15.5 % 15.8 % *HI* *HI* (05/27/16 6:36 AM) (05/26/16 4:52 PM) Platelet [133-450 169 K/CMM 183 K/CMM K/CMM] (05/27/16 6:36 AM) (05/26/16 4:52 PM) MPV [7.4-10.4 fL] 7.4 fL 7.1 fL (05/27/16 6:36 AM) *LOW* (05/26/16 4:52 PM) Segs [45.0-75.0 %] 83.0 % 87.8 % *HI* *HI* (05/27/16 6:36 AM) (05/26/16 4:52 PM) Lymphocytes 7.2 % 3.2 % [20.0-40.0 %] *LOW* *LOW* (05/27/16 6:36 AM) (05/26/16 4:52 PM) Monocytes [2.0-12.0 8.7 % 8.4 % %] (05/27/16 6:36 AM) (05/26/16 4:52 PM) Eosinophils [0.0-4.0 0.8 % 0.5 % %] (05/27/16 6:36 AM) (05/26/16 4:52 PM) Basophils [0.0-1.0 0.3 % 0.1 % %] (05/27/16 6:36 AM) (05/26/16 4:52 PM) Segs-Bands # 9.8 K/CMM 11.6 K/CMM [1.5-8.1 K/CMM] *HI* *HI* (05/27/16 6:36 AM) (05/26/16 4:52 PM) Lymphocytes # 0.8 K/CMM 0.4 K/CMM [1.0-5.5 K/CMM] *LOW* *LOW* (05/27/16 6:36 AM) (05/26/16 4:52 PM) Monocytes # [0.0-0.8 1.0 K/CMM 1.1 K/CMM K/CMM] *HI* *HI* (05/27/16 6:36 AM) (05/26/16 4:52 PM) Eosinophils # 0.1 K/CMM 0.1 K/CMM [0.0-0.5 K/CMM] (05/27/16 6:36 AM) (05/26/16 4:52 PM) RBC Morph Normal (05/26/16 4:52 PM) Plt Morph Normal (05/26/16 4:52 PM) PT [12.0-14.7 13.7 seconds seconds] (05/26/16 4:52 PM) INR [0.85-1.17] 1.03 (05/26/16 4:52 PM) PTT [22.9-35.8 31.4 seconds seconds] (05/26/16 4:52 PM) Immunizations No data available for this section Procedures Procedure Date Related Diagnosis Body Site Cholecystectomy Gastric bypass Hysterectomy Social History Social History Type Response Smoking Status Current every day smoker; Type: Cigarettes; Tobacco use per day: 1; Previous treatment: None; Ready to change: No; Concerns about tobacco use in household: No; Lives with someone who smokes; Cigarette Smoking Last 365 Days No; Reg Smoking Cessation Counseling Yes Assessment and Plan No data available for this section
--- OUTSIDE RECORDS SUMMARY | 2018-10-12 11:43 | XMS REPORT | Summary of Care ---
Author Author [facility] [place] Address Unknown Phone Unavailable Encounter [place] [place](JOLENE) [id number] Date(s): 06/13/18 - 06/13/18 [facility] [place] [address] [facility], [address] [place], [place] [address]- [phone] Discharge Disposition: Home or Self Care Attending Physician: Axel Sotelo MD Referring Physician: Axel Sotelo MD Vital Signs No data available for this section Problem List Condition Effective Dates Status Health Status Informant Idiopathic Atrophic Active Hypothyroidism(Confi rmed) Chest Resolved pain(Confirmed) Degenerative disc Resolved disease(Confirmed) Depression(Confirmed Resolved ) Fibromyalgia(Confirm Resolved ed) 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 Both daughters live in [place]. Smoking Status Current every day smoker; Type: Cigarettes; Previous treatment: None; Ready to change: No; Concerns about tobacco use in household: No; Lives with someone who smokes; Cigarette Smoking Last 365 Days No; Reg Smoking Cessation Counseling Yes; Tobacco use per day: 1; entered on: 06/03/18 Assessment and Plan No data available for this section
--- OUTSIDE RECORDS SUMMARY | 2018-10-12 11:43 | XMS REPORT | Summary of Care ---
Author Author [facility] Organization [facility] Address Unknown Phone Unavailable Encounter [facility] [place](JOLENE) [id number] Date(s): 02/04/15 - 02/04/15 [facility] [address] [place] [address]- Discharge Disposition: Home Attending Physician: Temi Marks MD Referring Physician: Temi Marks MD Vital Signs Most recent to 1 oldest [Reference Range]: Height 152.4 cm (02/04/15 8:45 AM) Weight 51.727 kg (02/04/15 8:45 AM) Body Mass Index 22.27 m2 (02/04/15 8:45 AM) Problem List Condition Effective Dates Status Health Status Informant Chest Resolved pain(Confirmed) Degenerative disc Resolved disease(Confirmed) Depression(Confirmed Resolved ) Fibromyalgia(Confirm Resolved ed) Kidney Resolved stones(Confirmed) Shortness of Resolved breath(Confirmed) Smoker(Confirmed) Resolved Syncope(Confirmed) Resolved Tachycardia(Confirme Resolved d) Allergies, Adverse Reactions, Alerts Substance Reaction Severity Status Cipro Active codeine Active Medications metoprolol 25 mg oral tablet, extended release 25 mg=1 tab, PO, Daily, # 90 tab, 3 Refill(s) Start Date: 02/04/15 Status: Ordered morphine Sulfate 2 mg, 1 mL, Route: IV, Drug form: INJ, Q4H, Dosing Weight 51.727, kg, PRN Pain S core 6-10, Start date: 02/04/15 11:28:00, Duration: 30 day, Stop date: 03/06/15 11:27:00 Notes: (Same as:MORPhine Sulfate) Start Date: 02/04/15 Stop Date: 02/04/15 Status: Discontinued nicotine 21 mg/24 hr transdermal film, extended release =1 patch, TOP, Daily, # 30 patch, 0 Refill(s) Start Date: 02/04/15 Stop Date: 03/06/15 Status: Ordered nitroglycerin 0.4 mg sublingual tablet 0.4 mg=1 tab, SL, Q5Min, PRN Chest Pain, Give up to 3 doses. Call 911 if pain pe rsists., # 25 tab, 3 Refill(s) Start Date: 02/04/15 Status: Ordered normal saline 0.9% IV 1,000 mL 1,000 mL, Rate: 100 ml/hr, Infuse over: 10 hr, Route: IV, Dosing Weight 49.091 k g, Total Volume: 1,000, Start date: 02/04/15 8:45:00, Duration: 30 day, Stop kendal e: 03/06/15 8:44:00 Start Date: 02/04/15 Stop Date: 02/04/15 Status: Discontinued Tylenol 500 mg, 1 tab, Route: PO, Drug form: TAB, Q6H, Dosing Weight 51.727, kg, PRN Mirtha n Score 4-6, Start date: 02/04/15 11:27:00, Duration: 30 day, Stop date: 5 11:26:00 Notes: Max acetaminophen 4000 mg/day (4 gm/day). (Same as: Tylenol Extra Streng ) Start Date: 02/04/15 Stop Date: 02/04/15 Status: Discontinued Results No data available for this section Immunizations No data available for this section Procedures Procedure Date Related Diagnosis Body Site Cholecystectomy Gastric bypass Hysterectomy Social History Social History Type Response Smoking Status Current every day smoker; Exposure to Tobacco Smoke None; Cigarette Smoking Last 365 Days Yes; Reg Smoking Cessation Counseling No Assessment and Plan No data available for this section
--- OUTSIDE RECORDS SUMMARY | 2018-10-12 11:43 | XMS REPORT | Summary of Care ---
Author Author [facility] Organization [facility] Address Unknown Phone Unavailable Encounter [facility] [place](JOLENE) [id number] Date(s): 11/14/16 - 11/14/16 [facility] [address] [place] [address]- [phone] Discharge Diagnosis: Acute left-sided low back pain Discharge Disposition: Home or Self Care Attending Physician: Yuriy Sanchez DO Vital Signs Most recent to 1 2 oldest [Reference Range]: Height 152.4 cm (11/14/16 3:43 PM) Temperature Oral 98.3 DegF 98.3 DegF [96.4-99.1 DegF] (11/14/16 6:29 PM) (11/14/16 3:43 PM) Blood Pressure 144/70 mmHg 133/87 mmHg [90-140/60-90 mmHg] *HI* (11/14/16 3:43 PM) (11/14/16 6:29 PM) Respiratory Rate 18 BRMIN 18 BRMIN [14-20 BRMIN] (11/14/16 6:29 PM) (11/14/16 3:43 PM) Peripheral Pulse 78 bpm 87 bpm Rate [60-100 bpm] (11/14/16 6:29 PM) (11/14/16 3:43 PM) Weight 52.273 kg (11/14/16 3:43 PM) Body Mass Index 22.51 m2 (11/14/16 3:43 PM) Problem List Condition Effective Dates Status Health Status Informant Chest Resolved pain(Confirmed) Degenerative disc Resolved disease(Confirmed) Depression(Confirmed Resolved ) Fibromyalgia(Confirm Resolved ed) Kidney Resolved stones(Confirmed) Shortness of Resolved breath(Confirmed) Smoker(Confirmed) Resolved Syncope(Confirmed) Resolved Tachycardia(Confirme Resolved d) Allergies, Adverse Reactions, Alerts Substance Reaction Severity Status Cipro Active codeine Active Medications dexamethasone 10 mg, 2.5 mL, Route: IM, Drug form: INJ, ONCE, Dosing Weight 52.273, kg, Priori ty: STAT, Start date: 11/14/16 16:31:00 CDT, Stop date: 11/14/16 16:31:00 CDT Start Date: 11/14/16 Stop Date: 11/14/16 Status: Completed Dilaudid 0.5 mg, 0.5 mL, Route: IVP, Drug form: INJ, ONCE, Dosing Weight 52.273, kg, Prio rity: STAT, Start date: 11/14/16 17:40:00 CDT, Stop date: 11/14/16 17:40:00 CDT Start Date: 11/14/16 Stop Date: 11/14/16 Status: Completed Flexeril 10 mg oral tablet 10 mg, PO, TID, PRN Muscle Spasm, X 5 day, # 20 tab, 0 Refill(s) Start Date: 11/14/16 Stop Date: 11/19/16 Status: Ordered ketOROLAC 60 mg, 2 mL, Route: IM, Drug form: INJ, ONCE, Dosing Weight 52.273, kg, Priority : STAT, Start date: 11/14/16 16:30:00 CDT, Stop date: 11/14/16 16:30:00 CDT Notes: (Same as:Toradol) IV bolus must be given >15 seconds. Give IM administration slowly and deeply into the muscle.Not for use > 4 days MEDICATION WASTE Product Size: 60 mgProduct Wasted: ___ mg Start Date: 11/14/16 Stop Date: 11/14/16 Status: Completed ketOROLAC 60 mg, 2 mL, Route: IM, Drug form: INJ, ONCE, Dosing Weight 52.727, kg, Priority : STAT, Start date: 11/14/16 15:47:00 CDT, Stop date: 11/14/16 15:47:00 CDT Notes: (Same as:Toradol) IV bolus must be given >15 seconds. Give IM administration slowly and deeply into the muscle.Not for use > 4 days MEDICATION WASTE Product Size: 60 mgProduct Wasted: ___ mg Start Date: 11/14/16 Stop Date: 11/14/16 Status: Discontinued [place] 10/325 oral tablet 1 tab, Route: PO, Drug Form: TAB, Dosing Weight 52.273, kg, ONCE, Start date: 16:30:00 CDT, Stop date: 11/14/16 16:30:00 CDT Notes: Do not exceed 4gm/day of acetaminophen. (Same as: [place] 325/10) Start Date: 11/14/16 Stop Date: 11/14/16 Status: Completed [place] 10/325 oral tablet 1 tab, Route: PO, Drug Form: TAB, Dosing Weight 52.273, kg, ONCE, STAT, Start da te: 11/14/16 15:47:00 CDT, Stop date: 11/14/16 15:47:00 CDT Notes: Do not exceed 4gm/day of acetaminophen. (Same as: [place] 325/10) Start Date: 11/14/16 Stop Date: 11/14/16 Status: Discontinued Ultram 50 mg oral tablet 100 mg=2 tab, PO, Q6H, PRN pain, X 5 day, # 40 tab, 0 Refill(s) Start Date: 11/14/16 Stop Date: 11/19/16 Status: Ordered Valium 5 mg, 1 tab, Route: PO, Drug form: TAB, ONCE, Dosing Weight 52.273, kg, Priority : STAT, Start date: 11/14/16 15:47:00 CDT, Stop date: 11/14/16 15:47:00 CDT Notes: (Same as: Valium) Start Date: 11/14/16 Stop Date: 11/14/16 Status: Discontinued Valium 5 mg, 1 tab, Route: PO, Drug form: TAB, ONCE, Dosing Weight 52.273, kg, Priority : STAT, Start date: 11/14/16 16:30:00 CDT, Stop date: 11/14/16 16:30:00 CDT Notes: (Same as: Valium) Start Date: 11/14/16 Stop Date: 11/14/16 Status: Completed Results No data available for this section Immunizations No data available for this section Procedures Procedure Date Related Diagnosis Body Site section Cholecystectomy Gastric bypass Hysterectomy Social History Social [...]
--- OUTSIDE RECORDS SUMMARY | 2018-10-12 11:43 | XMS REPORT | Summary of Care ---
Author Author [facility] Organization [facility] Address Unknown Phone Unavailable Encounter ROGER [place](JOLENE) [id number] Date(s): 12/16/14 - 12/17/14 [facility] [address] [place] [address]- Discharge Disposition: Home Attending Physician: Vidal Salinas DO Admitting Physician: Vidal Salinas DO Vital Signs 1 2 3 Most recent to oldest [Reference Range]: 152.4 cm (12/16/14 3:42 PM) 152.4 cm (12/16/14 7:52 AM) Height 1 2 3 Most recent to oldest [Reference Range]: 98.2 DegF (12/17/14 3:51 PM) 99.1 DegF (12/17/14 11:03 AM) 98.0 DegF (12/17/14 7:36 AM) Temperature Oral [96.4-99.1 DegF] 1 2 3 Most recent to oldest [Reference Range]: 131/67 mmHg (12/17/14 3:51 PM) 141/88 mmHg *HI* (12/17/14 11:03 AM) 124/85 mmHg (12/17/14 9:22 AM) Blood Pressure [90-140/60-90 mmHg] 1 2 3 Most recent to oldest [Reference Range]: 16 BRMIN (12/17/14 3:51 PM) 17 BRMIN (12/17/14 11:03 AM) 16 BRMIN (12/17/14 7:36 AM) Respiratory Rate [14-20 BRMIN] 1 2 3 Most recent to oldest [Reference Range]: 77 bpm (12/17/14 3:51 PM) 78 bpm (12/17/14 11:03 AM) 95 bpm (12/17/14 9:22 AM) Peripheral Pulse Rate [60-100 bpm] 1 2 3 Most recent to oldest [Reference Range]: 47.72 kg (12/16/14 3:42 PM) 47.727 kg (12/16/14 7:52 AM) Weight 1 2 3 Most recent to oldest [Reference Range]: 20.55 m2 (12/16/14 3:42 PM) 20.55 m2 (12/16/14 7:52 AM) Body Mass Index Problem List Condition Effective Dates Status Health Status Informant Degenerative disc Resolved disease(Confirmed) Fibromyalgia(Confirm Resolved ed) Kidney Resolved stones(Confirmed) Smoker(Confirmed) Resolved Allergies, Adverse Reactions, Alerts Substance Reaction Severity Status Cipro Active codeine Active Medications Ambien 10 mg oral tablet 10 mg=1 tab, PO, Bedtime, 0 Refill(s) Start Date: 12/16/14 Status: Ordered aspirin 81 mg tablet, enteric coated 81 mg, 1 tab, Route: PO, Drug form: ECTAB, Daily, Dosing Weight 47.72, kg, Start date: 12/17/14 9:00:00, Duration: 30 day, Stop date: 01/15/15 9:00:00 Notes: Do not crush or chew.(Same As: Ecotrin) Start Date: 12/17/14 Stop Date: 12/17/14 Status: Discontinued aspirin 81 mg tablet, enteric coated 81 mg=1 tab, PO, Daily, # 100 tab, 0 Refill(s) Start Date: 12/17/14 Status: Ordered atropine 0.5 mg, 5 mL, Route: IVP, Drug form: INJ, ONCE, Dosing Weight 47.72, kg, PRN Bra dycardia, Start date: 12/16/14 17:05:00, for symptomatic bradycardia Start Date: 12/16/14 Stop Date: 12/17/14 Status: Discontinued Cymbalta 60 mg, 2 cap, Route: PO, Drug form: DRC, Daily, Dosing Weight 47.72, kg, Start d ate: 12/18/14 9:00:00, Duration: 30 day, Stop date: 01/16/15 9:00:00 Notes: (Same as: Cymbalta) (Do Not Crush) Start Date: 12/18/14 Stop Date: 12/17/14 Status: Canceled Cymbalta 60 mg oral delayed release capsule 60 mg=1 cap, PO, Daily, 0 Refill(s) Start Date: 12/16/14 Status: Ordered docusate 100 mg, 1 cap, Route: PO, Drug form: CAP, BID, Dosing Weight 47.727, kg, PRN Con stipation, Start date: 12/16/14 13:20:00, Duration: 30 day, Stop date: 01/15/15 13:19:00 Notes: (Same as: Colace) (Do Not Crush) Start Date: 12/16/14 Stop Date: 12/17/14 Status: Discontinued Flexeril 10 mg, Route: PO, ONCE, Dosing Weight 47.727, kg, Priority: STAT, Start date: 8:37:00, Stop date: 12/16/14 8:37:00 Start Date: 12/16/14 Stop Date: 12/16/14 Status: Completed Lidoderm 5% topical film (patch) 1 patch, Route: TOP, Daily, Drug form: FILM, Start date: 12/16/14 18:00:00, Dura tion: 30 day, Stop date: 01/14/15 18:00:00, Remove after 12 hours Special Instructions: Remove after 12 hours Notes: Apply only once for up to 12 hours in [id number] period (12 hours on and 12 hours off).(Same as: Lidoderm)"Remove old patch before application of new patch" Start Date: 12/16/14 Stop Date: 12/17/14 Status: Discontinued Lidoderm 5% topical film (patch) 1 patch, TOP, Daily, Remove after 12 hours, # 30 patch, 0 Refill(s) Special Instructions: Remove after 12 hours Start Date: 12/17/14 Status: Ordered magnesium sulfate 2 gm in Water 50 ml 2 gm, 50 mL, Route: IVPB, Drug form: INJ, ONCE, Dosing Weight 47.72, kg, Start d ate: 12/16/14 17:20:00, Duration: 2 hr, Stop date: 12/16/14 17:20:00 Start Date: 12/16/14 Stop Date: 12/16/14 Status: Completed metoprolol extended release 25 mg, 1 tab, Route: PO, Drug form: ERTAB, BID, Start date: 12/17/14 21:00:00, D uration: 30 day, Stop date: 01/16/15 9:00:00 Notes: (Same as: Toprol XL) Do Not Crush Start Date: 12/17/14 Stop Date: 12/17/14 Status: Canceled morphine Sulfate 2 mg, 1 mL, Route: IVP, Drug form: INJ, Q4H, Dosing Weight 47.727, kg, PRN Pain Score 7-10, Start date: 12/16/14 13:20:00, Duration: 30 day, Stop date: 01/15/15 13:19:00 Notes: (Same as:MORPhine Sulfate) Start Date: 12/16/14 Stop Date: 12/17/14 Status: Discontinued morphine Sulfate 4 mg, 2 mL, Route: IVP, Drug form: INJ, ONCE, Dosing Weight 47.727, kg, Priority : STAT, Start date: 12/16/14 12:33:00, Stop date: 12/16/14 12:33:00 Notes: (Same as:MORPhine Sulfate) Start Date: 12/16/14 Stop Date: 12/16/14 Status: Completed nicotine 21 mg, 1 patch, Route: TOP, Drug form: ERFILM, Daily, Dosing Weight 47.727, kg, Start date: 12/16/14 17:00:00, Duration: 30 day, Stop date: 01/15/15 9:00:00 Notes: (Same as: Habitrol)"Remove old patch before application of new patch" Start Date: 12/16/14 Stop Date: 12/17/14 Status: Discontinued nitroglycerin 0.4 mg sublingual tablet 0.4 mg, 1 tab, Route: SL, Drug form: TAB, Q5Min, Dosing Weight 47.72, kg, PRN Ch est Pain, Start date: 12/16/14 17:05:00, Duration: 30 day, Stop date: 01/15/15 1 7:04:00 Notes: (Same as:Nitroquick, Nitrostat)"Do Not Crush" Sublingual tablet Start Date: 12/16/14 Stop Date: 12/17/14 Status: Discontinued Maywood 10/325 oral tablet 1 tab, Route: PO, Drug Form: TAB, Dosing Weight 47.727, kg, ONCE, STAT, Start da te: 12/16/14 8:37:00, Stop date: 12/16/14 8:37:00 Start Date: 12/16/14 Stop Date: 12/16/14 Status: Completed ondansetron 4 mg, 2 mL, Route: IVP, Drug form: INJ, Q6H, Dosing Weight 47.727, kg, PRN Nause a & Vomiting, Start date: 12/16/14 13:20:00, Duration: 30 day, Stop date: 01/15/15 13:19:00 Notes: (Same as: Liu) MEDICATION WASTE Product Size: 4 mgProduct Was gunjan: ___ mg Start Date: 12/16/14 Stop Date: 12/17/14 Status: Discontinued Percocet 10/325 oral tablet 1 tab, Route: PO, Drug Form: TAB, Dosing Weight 47.72, kg, Q6H, PRN Pain 1-3/Tem p > 100.4 F, Start date: 12/17/14 13:37:00, Duration: 30 day, Stop date: 01/16/15 13:36:00 Notes: Do not exceed 4gm/day of acetaminophen. (Same as: Percocet-10/325) Start Date: 12/17/14 Stop Date: 12/17/14 Status: Discontinued Percocet 10/325 oral tablet 1 tab, PO, 4-6x/Day, PRN Pain Score 6-10, # 20 tab, 0 Refill(s) Start Date: 12/16/14 Stop Date: 12/19/14 Status: Ordered remove patch 1 patch, Route: TOP, Bedtime, Drug form: ERFILM, Start date: 12/17/14 6:00:00, D uration: 30 day, Stop date: 01/15/15 6:00:00 Notes: Remove patch 12 hours after application each day. Start Date: 12/17/14 Stop Date: 12/17/14 Status: Discontinued Saline Flush 0.9% 10 mL, Route: IVP, Drug Form: INJ, Dosing Weight 47.727, kg, PRN, PRN Line Flush , Start date: 12/16/14 8:34:00, Duration: 30 day, Stop date: 01/15/15 8:33:00 Notes: (Same as: BD Posiflush) Start Date: 12/16/14 Stop Date: 12/17/14 Status: Discontinued Sodium Chloride 0.9% (Bolus) IV 1,000 mL, 1,000 ml/hr, Infuse Over: 1 hr, Route: IV, ONCE, Priority: STAT, Dosin g Weight 47.727 kg, Start date: 12/16/14 8:34:00, Duration: 1 doses or times, St op date: 12/16/14 8:34:00 Start Date: 12/16/14 Stop Date: 12/16/14 Status: Completed tizanidine 4 mg, 1 tab, Route: PO, Drug form: TAB, Daily, Dosing Weight 47.72, kg, PRN as n eeded for muscle spasm, Start date: 12/17/14 13:36:00, Duration: 30 day, Stop da te: 01/16/15 13:35:00 Notes: (Same As: Zanaflex) Start Date: 12/17/14 Stop Date: 12/17/14 Status: Discontinued tizanidine 4 mg oral tablet 4 mg=1 tab, PO, Daily, PRN Spasm, 0 Refill(s) Start Date: 12/16/14 Status: Ordered trazodone 150 mg oral tablet 150 mg=1 tab, PO, Bedtime, 0 Refill(s) Start Date: 12/16/14 Status: Ordered Zofran 4 mg, 2 mL, Route: IVP, Drug form: INJ, ONCE, Dosing Weight 47.727, kg, Priority : STAT, Start date: 12/16/14 12:33:00, Stop date: 12/16/14 12:33:00 Notes: (Same as: Zofran) MEDICATION WASTE Product Size: 4 mgProduct Was gunjan: ___ mg Start Date: 12/16/14 Stop Date: 12/16/14 Status: Completed Results ELECTROLYTES Most recent to 1 2 oldest [Reference Range]: Sodium Lvl [135-145 138 mEq/L mEq/L] (12/16/14 9:25 AM) Potassium Lvl 4.1 mEq/L [3.5-5.1 mEq/L] (12/16/14 9:25 AM) Chloride Lvl [95-109 103 mEq/L mEq/L] (12/16/14 9:25 AM) CO2 [24-32 mEq/L] 27 mEq/L (12/16/14 9:25 AM) AGAP [10.0-20.0 12.1 mEq/L mEq/L] (12/16/14 9:25 AM) CHEM PANEL Most recent to 1 2 oldest [Reference Range]: Creatinine Lvl 0.8 mg/dL [0.5-1.4 mg/dL] (12/16/14 9:25 AM) eGFR 83 mL/min/1.73m2 1 *NA* (12/16/14 9:25 AM) BUN [7-22 mg/dL] 9 mg/dL (12/16/14 9:25 AM) B/C Ratio [6-25] 11 (12/16/14 9:25 AM) Glucose Lvl [70-99 81 mg/dL mg/dL] (12/16/14 9:25 AM) Total Protein 7.0 g/dL [6.4-8.4 g/dL] (12/16/14 9:25 AM) Albumin Lvl [3.5-5.0 3.5 g/dL g/dL] (12/16/14 9:25 AM) Globulin [2.0-4.0 3.5 g/dL g/dL] (12/16/14 9:25 AM) A/G Ratio [0.7-1.6] 1.0 (12/16/14 9:25 AM) Calcium Lvl 8.4 mg/dL [8.5-10.5 mg/dL] *LOW* (12/16/14 9:25 AM) Phosphorus [2.5-4.5 3.0 mg/dL mg/dL] (12/16/14 2:01 PM) Magnesium Lvl 1.8 mg/dL 1.4 mg/dL [1.8-2.4 mg/dL] (12/17/14 3:50 AM) *LOW* (12/16/14 2:01 PM) ALT [0-65 unit/L] 35 unit/L (12/16/14 9:25 AM) AST [0-37 unit/L] 28 unit/L (12/16/14 9:25 AM) Alk Phos [39-136 129 unit/L unit/L] (12/16/14 9:25 AM) Bili Total [0.2-1.3 0.5 mg/dL mg/dL] (12/16/14 9:25 AM) 1Result Comment: The eGFR is calculated using [...] be mul tiplied by the estimated BMI. CARDIAC ENZYMES Most recent to 1 2 oldest [Reference Range]: Total CK [12-191 135 unit/L unit/L] (12/16/14 2:01 PM) CK MB [0.5-3.6 1.1 ng/mL ng/mL] (12/16/14 2:01 PM) CK MB Index 0.8 [0.0-2.5] (12/16/14 2:01 PM) Troponin-I <0.02 ng/mL [0.00-0.40 ng/mL] (12/16/14 2:01 PM) LIPIDS Most recent to 1 2 oldest [Reference Range]: CHD Risk [3.90-5.80] 1.69 *LOW* (12/17/14 3:50 AM) Chol [<=199 mg/dL] 122 mg/dL (12/17/14 3:50 AM) Trig [<=149 mg/dL] 68 mg/dL (12/17/14 3:50 AM) HDL [>=61 mg/dL] 72 mg/dL (12/17/14 3:50 AM) LDL (Calculated) 36 mg/dL [<=99 mg/dL] (12/17/14 3:50 AM) VLDL 14 *NA* (12/17/14 3:50 AM) SPECIAL CHEMISTRY Most recent to 1 2 oldest [Reference Range]: Hgb A1C [<=5.6 %] 5.1 % (12/16/14 6:07 PM) THYROID PANEL Most recent to 1 2 oldest [Reference Range]: T4 Free [0.76-1.46 0.85 ng/dL ng/dL] (12/16/14 6:07 PM) TSH [0.360-3.740 6.980 uIU/mL uIU/mL] *HI* (12/16/14 6:07 PM) DRUG SCREEN Most recent to 1 2 oldest [Reference Range]: U Amph Scr Negative [Negative] *NA* (12/16/14 10:24 AM) U Lakshmi Scr Negative [Negative] *NA* (12/16/14 10:24 AM) U Benzodia Scr Negative [Negative] *NA* (12/16/14 10:24 AM) U Cocaine Scr Negative [Negative] *NA* (12/16/14 10:24 AM) U Opiate Scr Positive [Negative] *ABN* (12/16/14 10:24 AM) U Phencyc Scr Negative [Negative] *NA* (12/16/14 10:24 AM) U Cannab Scr Negative [Negative] *NA* (12/16/14 10:24 AM) UDS Note See Note *NA* (12/16/14 10:24 AM) TOXICOLOGY Most recent to 1 2 oldest [Reference Range]: Etoh (%) <.003 % *NA* (12/16/14 9:25 AM) Ethanol Lvl <3 mg/dL *NA* (12/16/14 9:25 AM) URINE AND STOOL Most recent to 1 2 oldest [Reference Range]: UA Turbidity [Clear] Clear (12/16/14 10:24 AM) UA Color [Yellow] Yellow *NA* (12/16/14 10:24 AM) UA pH [5.0-8.0] 5.0 (12/16/14 10:24 AM) UA Spec Grav 1.017 [<=1.030] (12/16/14 10:24 AM) UA Glucose [Negative Negative mg/dL mg/dL] *NA* (12/16/14 10:24 AM) UA Blood [Negative] Negative (12/16/14 10:24 AM) UA Ketones [Negative Trace mg/dL mg/dL] *ABN* (12/16/14 10:24 AM) UA Protein [Negative Negative mg/dL mg/dL] (12/16/14 10:24 AM) UA Urobilinogen <=1.0 mg/dL [0.1-1.0 mg/dL] *NA* (12/16/14 10:24 AM) UA Bili [Negative] Negative *NA* (12/16/14 10:24 AM) UA Leuk Est Negative [Negative] (12/16/14 10:24 AM) UA Nitrite Negative [Negative] (12/16/14 10:24 AM) UA WBC [0-5 /HPF] 2 /HPF (12/16/14 10:24 AM) UA RBC [0-2 /HPF] 4 /HPF *HI* (12/16/14 10:24 AM) UA Bacteria [None Occasional /HPF Seen /HPF] *NA* (12/16/14 10:24 AM) UA Sq Epi [Few /LPF] Moderate /LPF *ABN* (12/16/14 10:24 AM) UA Mucus [None Seen Few /LPF /LPF] *NA* (12/16/14 10:24 AM) HEMATOLOGY Most recent to 1 2 oldest [Reference Range]: WBC [3.7-10.4 K/CMM] 11.2 K/CMM *HI* (12/16/14 9:25 AM) RBC [4.20-5.40 4.30 M/CMM M/CMM] (12/16/14 9:25 AM) Hgb [12.0-16.0 g/dL] 11.7 g/dL *LOW* (12/16/14 9:25 AM) Hct [36.0-48.0 %] 36.8 % (12/16/14 9:25 AM) MCV [80.0-98.0 fL] 85.8 fL (12/16/14 9:25 AM) MCH [27.0-31.0 pg] 27.1 pg (12/16/14 9:25 AM) MCHC [32.0-36.0 31.6 g/dL g/dL] *LOW* (12/16/14 9:25 AM) RDW [11.5-14.5 %] 16.1 % *HI* (12/16/14 9:25 AM) Platelet [133-450 298 K/CMM K/CMM] (12/16/14 9:25 AM) MPV [7.4-10.4 fL] 6.7 fL *LOW* (12/16/14 9:25 AM) Segs [45.0-75.0 %] 73.6 % (12/16/14 9:25 AM) Lymphocytes 16.4 % [20.0-40.0 %] *LOW* (12/16/14 9:25 AM) Monocytes [2.0-12.0 9.4 % %] (12/16/14 9:25 AM) Eosinophils [0.0-4.0 0.2 % %] (12/16/14 9:25 AM) Basophils [0.0-1.0 0.4 % %] (12/16/14 9:25 AM) Segs-Bands # 8.2 K/CMM [1.5-8.1 K/CMM] *HI* (12/16/14 9:25 AM) Lymphocytes # 1.8 K/CMM [1.0-5.5 K/CMM] (12/16/14 9:25 AM) Monocytes # [0.0-0.8 1.0 K/CMM K/CMM] *HI* (12/16/14 9:25 AM) PT [12.0-14.7 13.7 seconds 13.6 seconds seconds] (12/16/14 2:01 PM) (12/16/14 9:25 AM) INR [0.85-1.17] 1.02 1.01 (12/16/14 2:01 PM) (12/16/14 9:25 AM) PTT [22.9-35.8 21.9 seconds 24.4 seconds seconds] *LOW* (12/16/14 9:25 AM) (12/16/14 2:01 PM) Immunizations No data available for this section Procedures Procedure Date Related Diagnosis Body Site Cholecystectomy Gastric bypass Hysterectomy Social History Social History Type Response Smoking Status Current every day smoker; Exposure to Tobacco Smoke None; Cigarette Smoking Last 365 Days No; Reg Smoking Cessation Counseling No Assessment and Plan Extracted from: Title: Clinical Document Author: Marks, Matildelevi Blayne Date: 12/17/[address] [facility] Impression: Syncope Sinus tachycardia Plan: Syncope likely vasovagal in nature - pt educated on preventive measures Sinus tachycardia - possibly POTS Will follow as outpatient for tilt table test Start metoprolol 25 bid Compressive stockings Subjective: Patient seen and examined. Telemetry reviewed:NSR with sinus tachycardia NAD Alert , no CP no SOB Objective VitalsTmp(F)[id number] 12/17 11:[id number]--- 12/17 09:22----[id number]-------- 12/17 09:21----75312/80-------- 12/17 09:20----95199/72-------- 12/17 [id number]:[id number]--- 24 Hr Tmax: 99.1F (37.28c) at 12/17 11:03Vital Signs are the last 5 in the past 48 hours. HEENT: Neck Supple, No JVD, no carotid bruits CVS: Regular rate, Normal S1S2 no murmur rubs or gallops LUNGS: Clear to auscultation ABD: Soft, Non-tender, + BS, no bruits or organomegaly EXT: No ankle edema, palpable distal pulses Skin: No ulcers Neuro: Grossly non-focal Labs (Last four charted values) WBC H 11.2(DEC 16) Hgb L 11.7(DEC 16) Hct 36.8(DEC 16) Plt 298(DEC 16) Na 138(DEC 16) K 4.1(DEC 16) CO2 27(DEC 16) Cl 103(DEC 16) Cr 0.8(DEC 16) BUN 9(DEC 16) Glucose Random 81(DEC 16) Mg 1.8(DEC 17)L 1.4(DEC 16) Phos 3.0(DEC 16) Ca L 8.4(DEC 16) PT 13.7(DEC 16)13.6(DEC 16) INR 1.02(DEC 16)1.01(DEC 16) PTT L 21.9(DEC 16)24.4(DEC 16) Troponin <0.02(DEC 16) CK MB 1.1(DEC 16) Total CK 135(DEC 16)Scheduled Meds (5): 12/18/14 DULoxetine (Cymbalta) 60 mg PO Daily 12/17/14 aspirin (aspirin 81 mg tablet, enteric coated) 81 mg PO Daily 12/16/14 lidocaine topical (Lidoderm 5% topical film (patch)) 1 patch TOP Daily 12/16/14 nicotine 21 mg TOP Daily 12/17/14 remove patch 1 patch TOP Bedtime
--- OUTSIDE RECORDS SUMMARY | 2018-10-12 11:43 | XMS REPORT | Summary of Care ---
Author Author [facility] Organization [facility] Address Unknown Phone Unavailable Encounter ROGER [place](JOLENE) [id number] Date(s): 06/11/18 - 06/12/18 [facility] [address] [facility], [address] [place], [place] [address]- [phone] Vital Signs No data available for this [...] Severity Status codeine Active Cipro Active Medications levothyroxine 50 mcg (0.05 mg) oral tablet 50 microgram=1 tab, PO, QAM, take with plain water on empty stomach for thyroid. Wait 30 minutes before other food, drink, or pills., # 90 tab, 1 Refill(s), Pha rmacy: [facility] Start Date: 06/11/18 Status: Ordered Results No data available for [...] , 2 daughters. Both daughters live in [place]. Smoking Status Current every day smoker; Type: Cigarettes; Previous treatment: None; Ready to change: No; Concerns about tobacco use in household: No; Lives with someone who smokes; Cigarette Smoking Last 365 Days No; Reg Smoking Cessation Counseling Yes; Tobacco use per day: 1; entered on: 06/03/18 Assessment and Plan No data available for this section
--- OUTSIDE RECORDS SUMMARY | 2018-10-12 11:43 | XMS REPORT ---
[facility] Address Unknown Phone Unavailable Care Team Providers Care Volunteer Recruiter Name Role Phone Unavailable Unavailable Payers Payer Name Policy Type Policy Number Effective Date Expiration Date Problems This patient has no known problems. Allergies, Adverse Reactions, Alerts Allergy Name Allergy Type Status Severity Reaction(s) Onset Date Inactive Date Treating Clinician Comments ciprofloxacin DA Active U 2018-09-02 00:00:00 CODEINE DA Active U 2008-05-19 00:00:00 No Known Contrast Allergies DA Active U 2008-05-19 00:00:00 No Known Food Allergies DA Active U 2008-05-19 00:00:00 No Known Other Allergies DA Active U 2008-05-19 00:00:00 Medications This patient has no known medications.
[2018-10-12] MEDS ORDERED: HYDROCODONE/APAP 10MG-325MG TAB PO NR (11:45)
--- OUTSIDE RECORDS SUMMARY | 2018-10-12 11:46 | XMS REPORT | Continuity of Care Document ---
Author Author [facility] Organization [facility] Address Unknown Phone Unavailable Care Team Providers Care Door Patcher Name Role Phone [id number] Unavailable Unavailable Problems Problem Status Onset Date Classification Date Reported Comments Source M48.02 - SPINAL STENOSIS, CERVICAL RODY Active 06/09/2018 [facility] M79.642 - PAIN IN LEFT HAND Active 04/18/2018 [facility] Discharge Diagnosis: Acute left-sided low back pain 11/14/2016 11/17/2016 [facility] BACK PAIN Active 11/14/2016 [facility] Discharge Diagnosis: Sacral contusion 10/22/2016 10/25/2016 [facility] FALL/HIP PAIN Active 10/22/2016 [facility] ACUTE PYELONEPHRITIS, LEUKOCYTOSIS Active 05/26/2016 [facility] FEVER 105 Active 05/26/2016 [facility] UNK Active 02/02/2015 [facility] I25.118 Active 02/02/2015 [facility] FALL Active 12/15/2014 [facility] SYNCOPE, RIB FX Active 12/15/2014 [facility] Discharge Diagnosis: Chest wall pain 12/11/2013 12/14/2013 [facility] FLANK PAIN Active 12/09/2013 [facility] Idiopathic Atrophic Hypothyroidism Active Problem 06/15/2018 [facility] Chest pain Resolved Problem 06/15/2018 [facility] [place] Degenerative disc disease Resolved Problem 06/15/2018 [facility] [place] Depression Resolved Problem 06/15/2018 [facility] [place] Fibromyalgia Resolved Problem 06/15/2018 [facility] [place] Insomnia due to Depression and Anxiety Active Problem 06/15/2018 [facility], [facility] [place] Kidney stones Resolved Problem 06/15/2018 [facility] Opioid dependence Active Problem 06/15/2018 [facility] [place] Moderate recurrent major depression Active Problem 06/15/2018 [facility], [facility] [place] Shortness of breath Resolved Problem 06/15/2018 [facility], [facility] [place] Smoker Resolved Problem 06/15/2018 [facility], [facility] [place] Syncope Resolved Problem 06/15/2018 [facility], [facility] [place] Tachycardia Resolved Problem 06/15/2018 [facility], [facility] [place] SYNCOPE AND COLLAPSE Active [facility] ATHSCL HEART DISEASE OF [place] COR ART W Active [facility] ACUTE PYELONEPHRITIS Active [facility] ELEVATED WHITE BLOOD CELL COUNT, UNSPECI Active [facility] Medications Medication Details Route Status Patient Instructions Ordering Provider Order Date Source levothyroxine 50 mcg (0.05 mg) oral tablet 50 microgram=1 tab, PO, QAM, take with plain water on empty stomach for thyroid. Wait 30 minutes before other food, drink, or pills., # 90 tab, 1 Refill(s), Pharmacy: [facility] Active 06/11/2018 [facility] Chantix 1 mg oral tablet 1 mg=1 tab, PO, BID, to start: half tab once a day x4days, then half tab twice a [id number], then whole tab twice daily, # 180 tab, 2 Refill(s), Pharmacy: [facility] Active 06/03/2018 [facility] 0.5 ML Varicella zoster virus glycoprotein E, recombinant 0.1 MG/ML Injection [Shingrix] 0.5 mL, IM, ONCE, repeat dose in 2 to 6 months, # 1 mL, 1 Refill(s) Active 06/03/2018 [facility] gabapentin 600 MG Oral Tablet [Gralise] 600 mg=1 tab, PO, Daily, # 90 tab, 1 Refill(s) Inactive 06/03/2018 [facility] Dilaudid 0.5 mg, 0.5 mL, Route: IVP, Drug form: INJ, ONCE, Dosing Weight 52.273, kg, Priority: STAT, Start date: 11/14/16 17:40:00 CDT, Stop date: 11/14/16 17:40:00 CDT Inactive 11/14/2016 [facility] Cyclobenzaprine hydrochloride 10 MG Oral Tablet [Flexeril] 10 mg, PO, TID, PRN Muscle Spasm, X 5 day, # 20 tab, 0 Refill(s) Active 11/14/2016 [facility] tramadol hydrochloride 50 MG Oral Tablet [Ultram] 100 mg=2 tab, PO, Q6H, PRN pain, X 5 day, # 40 tab, 0 Refill(s) Active 11/14/2016 [facility] Dexamethasone 10 mg, 2.5 mL, Route: IM, Drug form: INJ, ONCE, Dosing Weight 52.273, kg, Priority: STAT, Start date: 11/14/16 16:31:00 CDT, Stop date: 11/14/16 16:31:00 CDT Inactive 11/14/2016 [facility] Acetaminophen 325 MG / Hydrocodone Bitartrate 10 MG Oral Tablet [Biscoe 10/325] 1 tab, Route: PO, Drug Form: TAB, Dosing Weight 52.273, kg, ONCE, Start date: 11/14/16 16:30:00 CDT, Stop date: 11/14/16 16:30:00 CDTNotes: Do not exceed 4gm/day of acetaminophen. (Same as: Biscoe 325/10) Inactive 11/14/2016 [facility] Ketorolac 60 mg, 2 mL, Route: [...] mg Product Wasted: ___ mg Inactive 11/14/2016 [facility] Valium 5 mg, 1 tab, Route: PO, Drug form: TAB, ONCE, Dosing Weight 52.273, kg, Priority: STAT, Start date: 11/14/16 16:30:00 CDT, Stop date: 11/14/16 16:30:00 CDTNotes: (Same as: Valium) Inactive 11/14/2016 [facility] Valium 5 mg, 1 tab, Route: PO, Drug form: TAB, ONCE, Dosing Weight 52.273, kg, Priority: STAT, Start date: 11/14/16 15:47:00 CDT, Stop date: 11/14/16 15:47:00 CDTNotes: (Same as: Valium) Inactive 11/14/2016 [facility] Acetaminophen 325 MG / Hydrocodone Bitartrate 10 MG Oral Tablet [Biscoe 10/325] 1 tab, Route: PO, Drug Form: TAB, Dosing Weight 52.273, kg, ONCE, STAT, Start date: 11/14/16 15:47:00 CDT, Stop date: 11/14/16 15:47:00 CDTNotes: Do not exceed 4gm/day of acetaminophen. (Same as: Biscoe 325/10) Inactive 11/14/2016 [facility] Ketorolac 60 mg, 2 mL, Route: [...] mg Product Wasted: ___ mg Inactive 11/14/2016 [facility] Zofran ODT 4 mg, Route: PO, Drug form: TABDIS, ONCE, Dosing Weight 52.727, kg, Priority: STAT, Start date: 10/22/16 14:22:00 CDT, Stop date: 10/22/16 14:22:00 CDT Inactive 10/22/2016 [facility] Morphine 4 mg, Route: IM, ONCE, Dosing Weight 52.727, kg, Priority: STAT, Start date: 10/22/16 14:22:00 CDT, Stop date: 10/22/16 14:22:00 CDT Inactive 10/22/2016 [facility] tramadol hydrochloride 50 MG Oral Tablet [Ultram] 100 mg=2 tab, PO, Q6H, PRN pain, X 4 day, # 32 tab, 0 Refill(s) Active 10/22/2016 [facility] Acetaminophen 325 MG / Hydrocodone Bitartrate 7.5 MG Oral Tablet [Biscoe 7.5/325] 1 tab, Route: PO, Drug Form: TAB, Dosing Weight 52.727, kg, ONCE, STAT, Start date: 10/22/16 13:07:00 CDT, Stop date: 10/22/16 13:07:00 CDT Inactive 10/22/2016 [facility] PLease do not give Vanco prior to trough is collected PLease do not give Vanco prior to trough is collected, Reminder, Drug form: MISC, Route: MISC, ONCE, 05/28/16 10:30:00 PIN CLEANER, Stop date: 05/28/16 10:30:00 PIN CLEANER No Longer Active 05/28/2016 [facility] Docusate Sodium 100 MG Oral Capsule [Colace] 200 mg, 2 cap, Route: PO, Drug form: CAP, BID, Dosing Weight 54.545, kg, Start date: 05/27/16 17:00:00 PIN CLEANER, Duration: 30 day, Stop date: 06/26/16 9:00:00 CDTNotes: (Same as: Colace) (Do Not Crush) Inactive 05/27/2016 [facility] magnesium citrate 58.2 MG/ML Oral Solution 300 ml, Route: PO, Drug Form: LIQ, Dosing Weight 54.545, kg, ONCE, Start date: 05/27/16 12:01:00 PIN CLEANER, Stop date: 05/27/16 12:01:00 CSTNotes: (Same as: Citrate of Magnesia) Concentration: 1.745 gm / 30 mL Inactive 05/27/2016 [facility] Atropine 0.5 mg, 5 mL, Route: IV, Drug form: INJ, PRN, Dosing Weight 54.545, kg, PRN Bradycardia, Start date: 05/27/16 3:34:00 PIN CLEANER, Duration: 30 day, Stop date: 06/26/16 4:33:00 CDT, symptomatic bradycardia HR Inactive 05/27/2016 [facility] Nitroglycerin 0.4 MG Sublingual Tablet [Nitrostat] 0.4 mg, 1 tab, Route: SL, Drug form: TAB, Q5Min, Dosing Weight 54.545, kg, PRN Chest Pain, Start date: 05/27/16 3:34:00 PIN CLEANER, Duration: 3 doses or times, Stop date: Limited # of timesNotes: (Same as:Nitroquick, Nitrostat) "Do Not Crush" Sublingual tablet Inactive 05/27/2016 [facility] Trazodone 150 mg, 3 tab, Route: PO, Drug form: TAB, Bedtime, Dosing Weight 54.545, kg, Start date: 05/27/16 1:00:00 PIN CLEANER, Duration: 30 day, Stop date: 06/25/16 21:00:00 CDTNotes: (Same As: Desyrel) Inactive 05/27/2016 [facility] Ambien 5 mg, 1 tab, Route: PO, Drug form: TAB, Bedtime, Dosing Weight 54.545, kg, PRN as needed for sleep, Start date: 05/27/16 0:59:00 PIN CLEANER, Stop date: 06/24/16 21:00:00 CDTNotes: (Same As: Ambien) Inactive 05/27/2016 [facility] Cymbalta 60 mg, 2 cap, Route: PO, Drug form: DRC, Bedtime, Dosing Weight 54.545, kg, Start date: 05/27/16 0:59:00 PIN CLEANER, Duration: 30 day, Stop date: 06/25/16 21:00:00 CDTNotes: (Same as: Cymbalta) (Do Not Crush) Inactive 05/27/2016 [facility] VESICARE PO, Daily, 0 Refill(s) Active 05/27/2016 [facility] Clonazepam 0.5 mg, PO, Daily, PRN Anxiety, 0 Refill(s) Active 05/27/2016 [facility] Paxil PO, Daily, 0 Refill(s) Active 05/27/2016 [facility] Vancomycin 1,000 mg, Route: IVPB, Drug form: INJ, [id number], Dosing Weight 53.182, kg, Start date: 05/26/16 22:00:00 PIN CLEANER, Duration: 30 day, Stop date: 06/25/16 10:00:00 CDT Inactive 05/27/2016 [facility] Zosyn 3.375 gm, Route: IVPB, [id number], Dosing Weight 53.182, kg, CrCl >=20 ml/min infuse over 4 hours, Start date: 05/26/16 22:00:00 PIN CLEANER, Duration: 30 day, Stop date: 06/25/16 16:00:00 CDTNotes: (Same as: Zosyn) Dosing based on Piperacillin component MEDICATION WASTE Product Size: 3375 mg Product Wasted: ___ mg No Longer Active 05/27/2016 [facility] 12 HR Oxycodone Hydrochloride 15 MG Extended Release Tablet [Oxycontin] 15 mg=1 tab, PO, Bedtime, 0 Refill(s) Active 05/27/2016 [facility] Sodium Chloride 0.154 MEQ/ML Injectable Solution 1,000 mL, 1,000 ml/hr, Infuse Over: 1 hr, Route: IV, 1,000, Drug form: INJ, ONCE, Priority: STAT, Dosing Weight 53.182 kg, Start date: 05/26/16 21:11:00 PIN CLEANER, Duration: 1 doses or times, Stop date: 05/26/16 21:11:00 PIN CLEANER Inactive 05/27/2016 [facility] Saline Flush 0.9% 10 ml, Route: IVP, Drug Form: INJ, Dosing Weight 53.182, kg, PRN, PRN Line Flush, Start date: 05/26/16 21:10:00 PIN CLEANER, Duration: 30 day, Stop date: 06/25/16 22:09:00 CDTNotes: (Same as: BD Posiflush) No Longer Active 05/27/2016 [facility] Morphine 4 mg, 1 mL, Route: IVP, Drug form: SOLN, Q4H, Dosing Weight 53.182, kg, PRN Pain Score 7-10, Start date: 05/26/16 21:10:00 PIN CLEANER, Duration: 30 day, Stop date: 06/25/16 21:09:00 CDTNotes: (Same as:MORPhine Sulfate) No Longer Active 05/27/2016 [facility] Ondansetron 4 mg, 2 mL, Route: IVP, Drug form: INJ, Q6H, Dosing Weight 53.182, kg, PRN Nausea & Vomiting, Start date: 05/26/16 21:10:00 PIN CLEANER, Duration: 30 day, Stop date: 06/25/16 21:09:00 CDTNotes: (Same as: Liu) MEDICATION WASTE Product Size: 4 mg Product Wasted: ___ mg No Longer Active 05/27/2016 [facility] Sodium Chloride 0.154 MEQ/ML Injectable Solution 1,000 mL, Rate: 100 ml/hr, Infuse over: 10 hr, Route: IV, Dosing Weight 53.182 kg, Total Volume: 1,000, Start date: 05/26/16 21:10:00 PIN CLEANER, Stop date: 06/25/16 21:09:00 CDT No Longer Active 05/27/2016 [facility] Acetaminophen 325 MG / Hydrocodone Bitartrate 10 MG Oral Tablet [Biscoe 10/325] 2 tab, Route: PO, Drug Form: TAB, Dosing Weight 53.182, kg, ONCE, STAT, Start date: 05/26/16 17:35:00 PIN CLEANER, Stop date: 05/26/16 17:35:00 PIN CLEANER Inactive 05/26/2016 [facility] cefepime 2 gm, Route: IVPB, ONCE, Dosing Weight 53.182, kg, Priority: STAT, Start date: 05/26/16 16:31:00 PIN CLEANER, Stop date: 05/26/16 16:31:00 PIN CLEANER Inactive 05/26/2016 [facility] Sodium Chloride 0.154 MEQ/ML Injectable Solution 1,000 mL, 1,000 ml/hr, Infuse Over: 1 hr, Route: IV, 1,000, Drug form: INJ, ONCE, Priority: STAT, Dosing Weight 53.182 kg, Start date: 05/26/16 16:31:00 PIN CLEANER, Duration: 1 doses or times, Stop date: 05/26/16 16:31:00 PIN CLEANER Inactive 05/26/2016 [facility] Saline Flush 0.9% 10 mL, Route: IVP, Drug Form: INJ, Dosing Weight 53.182, kg, PRN, PRN Line Flush, Start date: 05/26/16 16:06:00 PIN CLEANER, Duration: 30 day, Stop date: 06/25/16 17:05:00 CDTNotes: (Same as: Posiflush) No Longer Active 05/26/2016 [facility] Sodium Chloride 0.154 MEQ/ML Injectable Solution 1,000 mL, 2,000 ml/hr, Route: IV, ONCE, Priority: STAT, Dosing Weight 53.182 kg, Start date: 05/26/16 16:06:00 PIN CLEANER, Duration: 1 doses or times, Stop date: 05/26/16 16:06:00 PIN CLEANER Inactive 05/26/2016 [facility] Morphine 2 mg, 1 mL, Route: IV, Drug form: INJ, Q4H, Dosing Weight 51.727, kg, PRN Pain Score 6-10, Start date: 02/04/15 11:28:00, Duration: 30 day, Stop date: 03/06/15 11:27:00Notes: (Same as:MORPhine Sulfate) Inactive 02/04/2015 [facility] Tylenol 500 mg, 1 tab, Route: PO, Drug form: TAB, Q6H, Dosing Weight 51.727, kg, PRN Pain Score 4-6, Start date: 02/04/15 11:27:00, Duration: 30 day, Stop date: 03/06/15 11:26:00Notes: Max acetaminophen 4000 mg /day (4 gm/day). (Same as: Tylenol Extra Strength) Inactive 02/04/2015 [facility] metoprolol 25 mg oral tablet, extended release 25 mg=1 tab, PO, Daily, # 90 tab, 3 Refill(s) Active 02/04/2015 [facility] 24 HR Nicotine 0.875 MG/HR Transdermal Patch =1 patch, TOP, Daily, # 30 patch, 0 Refill(s) Active 02/04/2015 [facility] Nitroglycerin 0.4 MG Sublingual Tablet 0.4 mg=1 tab, SL, Q5Min, PRN Chest Pain, Give up to 3 doses. Call 911 if pain persists., # 25 tab, 3 Refill(s) Active 02/04/2015 [facility] normal saline 0.9% IV 1,000 mL 1,000 mL, Rate: 100 ml/hr, Infuse over: 10 hr, Route: IV, Dosing Weight 49.091 kg, Total Volume: 1,000, Start date: 02/04/15 8:45:00, Duration: 30 day, Stop date: 03/06/15 8:44:00 Inactive 02/04/2015 [facility] Cymbalta 60 mg, 2 cap, Route: PO, Drug form: DRC, Daily, Dosing Weight 47.72, kg, Start date: 12/18/14 9:00:00, Duration: 30 day, Stop date: 01/16/15 9:00:00Notes: (Same as: Cymbalta) (Do Not Crush) No Longer Active 12/18/2014 [facility] metoprolol extended release 25 mg, 1 tab, Route: PO, Drug form: ERTAB, BID, Start date: 12/17/14 21:00:00, Duration: 30 day, Stop date: 01/16/15 9:00:00Notes: (Same as: Toprol XL) Do Not Crush Inactive 12/18/2014 [facility] Lidocaine Hydrochloride 0.05 MG/MG Transdermal Patch [Lidoderm] 1 patch, TOP, Daily, Remove after 12 hours, # 30 patch, 0 Refill(s)Special Instructions: Remove after 12 hours Active 12/17/2014 [facility] Aspirin 81 MG Enteric Coated Tablet 81 mg=1 tab, PO, Daily, # 100 tab, 0 Refill(s) Active 12/17/2014 [facility] Acetaminophen 325 MG / Oxycodone Hydrochloride 10 MG Oral Tablet [Percocet 10/325] 1 tab, Route: PO, Drug Form: TAB, Dosing Weight 47.72, kg, Q6H, PRN Pain 1-3/Temp > 100.4 F, Start date: 12/17/14 13:37:00, Duration: 30 day, Stop date: 01/16/15 13:36:00Notes: Do not exceed 4gm/day of acetaminophen. (Same as: Percocet-10/325) Inactive 12/17/2014 [facility] tizanidine 4 mg, 1 tab, Route: PO, Drug form: TAB, Daily, Dosing Weight 47.72, kg, PRN as needed for muscle spasm, Start date: 12/17/14 13:36:00, Duration: 30 day, Stop date: 01/16/15 13:35:00Notes: (Same As: Z anaflex) Inactive 12/17/2014 [facility] Aspirin 81 MG Enteric Coated Tablet 81 mg, 1 tab, Route: PO, Drug form: ECTAB, Daily, Dosing Weight 47.72, kg, Start date: 12/17/14 9:00:00, Duration: 30 day, Stop date: 01/15/15 9:00:00Notes: Do not crush or chew. (Same As: Ecotrin) Inactive 12/17/2014 [facility] remove patch 1 patch, Route: TOP, Bedtime, Drug form: ERFILM, Start date: 12/17/14 6:00:00, Duration: 30 day, Stop date: 01/15/15 6:00:00Notes: Remove patch 12 hours after application each day. Inactive 12/17/2014 [facility] Lidocaine Hydrochloride 0.05 MG/MG Transdermal Patch [...] of new patch" No Longer Active 12/16/2014 [facility] Acetaminophen 325 MG / Oxycodone Hydrochloride 10 MG Oral Tablet [Percocet 10/325] 1 tab, PO, 4-6x/Day, PRN Pain Score 6-10, # 20 tab, 0 Refill(s) Active 12/16/2014 [facility] Zolpidem tartrate 10 MG Oral Tablet [Ambien] 10 mg=1 tab, PO, Bedtime, 0 Refill(s) Active 12/16/2014 [facility] tizanidine 4 mg oral tablet 4 mg=1 tab, PO, Daily, PRN Spasm, 0 Refill(s) Active 12/16/2014 [facility] trazodone 150 mg oral tablet 150 mg=1 tab, PO, Bedtime, 0 Refill(s) Active 12/16/2014 [facility] duloxetine 60 MG Enteric Coated Capsule [Cymbalta] 60 mg=1 cap, PO, Daily, 0 Refill(s) Active 12/16/2014 [facility] Magnesium Sulfate 2 gm, 50 mL, Route: IVPB, Drug form: INJ, ONCE, Dosing Weight 47.72, kg, Start date: 12/16/14 17:20:00, Duration: 2 hr, Stop date: 12/16/14 17:20:00 Inactive 12/16/2014 [facility] Nitroglycerin 0.4 MG Sublingual Tablet 0.4 mg, 1 tab, Route: SL, Drug form: TAB, Q5Min, Dosing Weight 47.72, kg, PRN Chest Pain, Start date: 12/16/14 17:05:00, Duration: 30 day, Stop date: 01/15/15 17:04:00Notes: (Same as:Nitroquick, Nitrostat) "Do Not Crush" Sublingual tablet No Longer Active 12/16/2014 [facility] Atropine 0.5 mg, 5 mL, Route: IVP, Drug form: INJ, ONCE, Dosing Weight 47.72, kg, PRN Bradycardia, Start date: 12/16/14 17:05:00, for symptomatic bradycardia No Longer Active 12/16/2014 [facility] Nicotine 21 mg, 1 patch, Route: TOP, Drug form: ERFILM, Daily, Dosing Weight 47.727, kg, Start date: 12/16/14 17:00:00, Duration: 30 day, Stop date: 01/15/15 9:00:00Notes: (Same as: Habitrol) "Remove old patch before application of new patch" No Longer Active 12/16/2014 [facility] Docusate 100 mg, 1 cap, Route: PO, Drug form: CAP, BID, Dosing Weight 47.727, kg, PRN Constipation, Start date: 12/16/14 13:20:00, Duration: 30 day, Stop date: 01/15/15 13:19:00Notes: (Same as: Colace) (Do Not Crush) No Longer Active 12/16/2014 [facility] Ondansetron 4 mg, 2 mL, Route: IVP, Drug form: INJ, Q6H, Dosing Weight 47.727, kg, PRN Nausea & Vomiting, Start date: 12/16/14 13:20:00, Duration: 30 day, Stop date: 01/15/15 13:19:00Notes: (Same as: Zofran) MEDICATION WASTE Product Size: 4 mg Product Wasted: ___ mg No Longer Active 12/16/2014 [facility] Morphine 2 mg, 1 mL, Route: IVP, Drug form: INJ, Q4H, Dosing Weight 47.727, kg, PRN Pain Score 7-10, Start date: 12/16/14 13:20:00, Duration: 30 day, Stop date: 01/15/15 13:19:00Notes: (Same as:MORPhine Sulfate) No Longer Active 12/16/2014 [facility] Zofran 4 mg, 2 mL, Route: IVP, Drug form: INJ, ONCE, Dosing Weight 47.727, kg, Priority: STAT, Start date: 12/16/14 12:33:00, Stop date: 12/16/14 12:33:00Notes: (Same as: Zoaleyda) MEDICATION WASTE Product Size: 4 mg Product Wasted: ___ mg Inactive 12/16/2014 [facility] Morphine 4 mg, 2 mL, Route: IVP, Drug form: INJ, ONCE, Dosing Weight 47.727, kg, Priority: STAT, Start date: 12/16/14 12:33:00, Stop date: 12/16/14 12:33:00Notes: (Same as:MORPhine Sulfate) Inactive 12/16/2014 [facility] Acetaminophen 325 MG / Hydrocodone Bitartrate 10 MG Oral Tablet [Biscoe 10/325] 1 tab, Route: PO, Drug Form: TAB, Dosing Weight 47.727, kg, ONCE, STAT, Start date: 12/16/14 8:37:00, Stop date: 12/16/14 8:37:00 Inactive 12/16/2014 [facility] Flexeril 10 mg, Route: PO, ONCE, Dosing Weight 47.727, kg, Priority: STAT, Start date: 12/16/14 8:37:00, Stop date: 12/16/14 8:37:00 Inactive 12/16/2014 [facility] Saline Flush 0.9% 10 mL, Route: IVP, Drug Form: INJ, Dosing Weight 47.727, kg, PRN, PRN Line Flush, Start date: 12/16/14 8:34:00, Duration: 30 day, Stop date: 01/15/15 8:33:00Notes: (Same as: BD Posiflush) No Longer Active 12/16/2014 [facility] Sodium Chloride 0.154 MEQ/ML Injectable Solution 1,000 mL, 1,000 ml/hr, Infuse Over: 1 hr, Route: IV, ONCE, Priority: STAT, Dosing Weight 47.727 kg, Start date: 12/16/14 8:34:00, Duration: 1 doses or times, Stop date: 12/16/14 8:34:00 Inactive 12/16/2014 [facility] Acetaminophen 325 MG / Hydrocodone Bitartrate 5 MG Oral Tablet [Biscoe 5/325] 1-2 tab, PO, Q4-6H, Pain, # 15 tab, 0 Refill(s) Active 12/11/2013 [facility] naproxen 500 mg oral tablet 500 mg=1 tab, PO, Q12H, Pain, # 20 tab, 0 Refill(s) Active 12/11/2013 [facility] Morphine 4 mg, Route: IVP, Drug form: INJ, ONCE, Dosing Weight 52.273, kg, Priority: STAT, Start date: 12/11/13 16:46:00, Stop date: 12/11/13 16:46:00 Inactive 12/11/2013 [facility] Ondansetron 4 mg, Route: IVP, ONCE, Dosing Weight 52.273, kg, Priority: STAT, Start date: 12/11/13 15:47:00, Stop date: 12/11/13 15:47:00 Inactive 12/11/2013 [facility] Morphine 4 mg, Route: IVP, ONCE, Dosing Weight 52.273, kg, Priority: STAT, Start date: 12/11/13 15:47:00, Stop date: 12/11/13 15:47:00 Inactive 12/11/2013 [facility] Saline Flush 0.9% 10 mL, Route: IVP, Drug Form: INJ, Dosing Weight 52.273, kg, PRN, PRN Line Flush, Start date: 12/11/13 15:47:00, Duration: 30 day, Stop date: 01/10/14 15:46:00Notes: (Same as: BD Posiflush) Inactive 12/11/2013 [facility] Allergies, Adverse Reactions, Alerts Substance Category Reaction Severity Reaction type Status Date Reported Comments Source Cipro Assertion Drug allergy Active [facility] codeine Assertion Drug allergy Active [facility] Immunizations No Data Provided for This Section [...] should be multiplied by the estimated BMI. [facility] CHEM PANEL Albumin Lvl 2.0 3.5 - 5.0 05/27/2016 [facility] CHEM PANEL Globulin 3.4 2.7 - 4.2 05/27/2016 [facility] CHEM PANEL A/G Ratio 0.6 0.7 - 1.6 05/27/2016 [facility] CHEM PANEL ALT 11 0 - 65 05/27/2016 [facility] CHEM PANEL B/C Ratio 9 6 - 25 05/27/2016 [facility] CHEM PANEL Total Protein 5.4 6.4 - 8.4 05/27/2016 [facility] CHEM PANEL AST 11 0 - 37 05/27/2016 [facility] CHEM PANEL Alk Phos 90 39 - 136 05/27/2016 [facility] CHEM PANEL Bili Total 0.5 0.2 - 1.3 05/27/2016 [facility] CHEM PANEL CO2 19 24 - 32 05/27/2016 [facility] CHEM PANEL Calcium Lvl 6.7 8.5 - 10.5 05/27/2016 Result Comment: Critical Result(s) called to Akash Munguia at 05/27/2016 08:42 by celeste. Read back OK. [facility] CHEM PANEL Potassium Lvl 3.4 3.5 - 5.1 05/27/2016 [facility] CHEM PANEL Chloride Lvl 107 95 - 109 05/27/2016 [facility] CHEM PANEL Creatinine Lvl 0.55 0.50 - 1.40 05/27/2016 [facility] CHEM PANEL Sodium Lvl 138 135 - 145 05/27/2016 [facility] CHEM PANEL AGAP 15.4 10.0 - 20.0 05/27/2016 [facility] CHEM PANEL Glucose Lvl 71 70 - 99 05/27/2016 [facility] CHEM PANEL BUN 5 7 - 22 05/27/2016 [facility] HEMATOLOGY Monocytes 8.7 2.0 - 12.0 05/27/2016 [facility] HEMATOLOGY Lymphocytes 7.2 20.0 - 40.0 05/27/2016 [facility] HEMATOLOGY Eosinophils 0.8 0.0 - 4.0 05/27/2016 [facility] HEMATOLOGY Lymphocytes # 0.8 1.0 - 5.5 05/27/2016 [facility] HEMATOLOGY Eosinophils # 0.1 0.0 - 0.5 05/27/2016 [facility] HEMATOLOGY Monocytes # 1.0 0.0 - 0.8 05/27/2016 [facility] HEMATOLOGY Segs 83.0 45.0 - 75.0 05/27/2016 [facility] Segs-Bands # 9.8 1.5 - 8.1 05/27/2016 [facility] HEMATOLOGY Basophils 0.3 0.0 - 1.0 05/27/2016 [facility] MPV 7.4 7.4 - 10.4 05/27/2016 [facility] RDW 15.5 11.5 - 14.5 05/27/2016 [facility] MCHC 32.9 32.0 - 36.0 05/27/2016 [facility] Platelet 169 133 - 450 05/27/2016 [facility] Hgb 9.2 12.0 - 16.0 05/27/2016 [facility] RBC 3.04 4.20 - 5.40 05/27/2016 [facility] WBC 11.8 3.7 - 10.4 05/27/2016 [facility] MCH 30.3 27.0 - 31.0 05/27/2016 [facility] [facility] Hct 27.9 36.0 - 48.0 05/27/2016 [facility] MCV 91.8 80.0 - 98.0 05/27/2016 [facility] URINE AND STOOL UA pH 6.0 5.0 - 8.0 05/27/2016 [facility] URINE AND STOOL UA Glucose Negative mg/dL Negative mg/dL 05/27/2016 [facility] URINE AND STOOL UA Protein 100 mg/dL Negative mg/dL 05/27/2016 [facility] URINE AND STOOL UA Bili Negative *NA* (05/26/16 7:44 PM) Negative 05/27/2016 [facility] URINE AND STOOL UA Ketones Trace mg/dL Negative mg/dL 05/27/2016 [facility] URINE AND STOOL UA Blood Large *ABN* (05/26/16 7:44 PM) Negative 05/27/2016 [facility] URINE AND STOOL UA Spec Grav 1.010 <=1.030 05/27/2016 [facility] URINE AND STOOL UA Turbidity Marked *ABN* (05/26/16 7:44 PM) Clear 05/27/2016 [facility] URINE AND STOOL UA Nitrite Negative (05/26/16 7:44 PM) Negative 05/27/2016 [facility] URINE AND STOOL UA Leuk Est Large *ABN* (05/26/16 7:44 PM) Negative 05/27/2016 [facility] URINE AND STOOL UA WBC >182 0 - 5 05/27/2016 [facility] URINE AND STOOL UA Sq Epi Many /LPF Few /LPF 05/27/2016 [facility] URINE AND STOOL UA RBC >182 0 - 2 05/27/2016 [facility] URINE AND STOOL UA Color Red 05/27/2016 [facility] URINE AND STOOL UA Urobilinogen <=1.0 mg/dL 0.1 - 1.0 05/27/2016 [facility] URINE AND STOOL UA Mucus Few /LPF None Seen /LPF 05/27/2016 [facility] URINE AND STOOL UA Bacteria Occasional /HPF None Seen /HPF 05/27/2016 [facility] CARDIAC ENZYMES Total CK 33 12 - 191 05/26/2016 [facility] CARDIAC ENZYMES CK MB 0.5 0.5 - 3.6 05/26/2016 [facility] CARDIAC ENZYMES Troponin-I <0.02 0.00 - 0.40 05/26/2016 [facility] CARDIAC ENZYMES CK MB Index 1.5 0.0 - 2.5 05/26/2016 [facility] CHEM PANEL A/G Ratio 0.7 0.7 - 1.6 05/26/2016 [facility] CHEM PANEL Globulin 3.8 2.7 - 4.2 05/26/2016 [facility] CHEM PANEL AGAP 13.6 10.0 - 20.0 05/26/2016 [facility] CHEM PANEL B/C Ratio 10 6 - 25 05/26/2016 [facility] CHEM PANEL eGFR 93 05/26/2016 Result [...] should be multiplied by the estimated BMI. [facility] CHEM PANEL AST 11 0 - 37 05/26/2016 [facility] CHEM PANEL Bili Total 0.5 0.2 - 1.3 05/26/2016 [facility] CHEM PANEL Alk Phos 93 39 - 136 05/26/2016 [facility] CHEM PANEL Total Protein 6.3 6.4 - 8.4 05/26/2016 [facility] CHEM PANEL Calcium Lvl 7.7 8.5 - 10.5 05/26/2016 [facility] CHEM PANEL CO2 24 24 - 32 05/26/2016 [facility] CHEM PANEL Albumin Lvl 2.5 3.5 - 5.0 05/26/2016 [facility] CHEM PANEL ALT 14 0 - 65 05/26/2016 [facility] CHEM PANEL Chloride Lvl 103 95 - 109 05/26/2016 [facility] CHEM PANEL Glucose Lvl 97 70 - 99 05/26/2016 [facility] CHEM PANEL BUN 7 7 - 22 05/26/2016 [facility] CHEM PANEL Creatinine Lvl 0.72 0.50 - 1.40 05/26/2016 [facility] CHEM PANEL Sodium Lvl 137 135 - 145 05/26/2016 [facility] CHEM PANEL Potassium Lvl 3.6 3.5 - 5.1 05/26/2016 [facility] CHEM PANEL Lactic Acid Lvl 0.9 0.5 - 2.2 05/26/2016 [facility] CHEM PANEL Procalcitonin Lvl 0.86 0.00 - 0.10 05/26/2016 [facility] HEMATOLOGY Platelet 183 133 - 450 05/26/2016 [facility] HEMATOLOGY MPV 7.1 7.4 - 10.4 05/26/2016 [facility] HEMATOLOGY RDW 15.8 11.5 - 14.5 05/26/2016 [facility] HEMATOLOGY MCHC 32.9 32.0 - 36.0 05/26/2016 [facility] HEMATOLOGY Hgb 10.6 12.0 - 16.0 05/26/2016 [facility] HEMATOLOGY Hct 32.2 36.0 - 48.0 05/26/2016 [facility] HEMATOLOGY WBC 13.2 3.7 - 10.4 05/26/2016 [facility] HEMATOLOGY RBC 3.48 4.20 - 5.40 05/26/2016 [facility] HEMATOLOGY MCV 92.3 80.0 - 98.0 05/26/2016 [facility] HEMATOLOGY MCH 30.3 27.0 - 31.0 05/26/2016 [facility] HEMATOLOGY INR 1.03 0.85 - 1.17 05/26/2016 [facility] HEMATOLOGY PT 13.7 12.0 - 14.7 05/26/2016 [facility] HEMATOLOGY PTT 31.4 22.9 - 35.8 05/26/2016 [facility] HEMATOLOGY Monocytes # 1.1 0.0 - 0.8 05/26/2016 [facility] HEMATOLOGY Eosinophils # 0.1 0.0 - 0.5 05/26/2016 [facility] HEMATOLOGY RBC Morph Normal (05/26/16 4:52 PM) 05/26/2016 [facility] HEMATOLOGY Eosinophils 0.5 0.0 - 4.0 05/26/2016 [facility] HEMATOLOGY Plt Morph Normal (05/26/16 4:52 PM) 05/26/2016 [facility] HEMATOLOGY Segs 87.8 45.0 - 75.0 05/26/2016 [facility] HEMATOLOGY Lymphocytes 3.2 20.0 - 40.0 05/26/2016 [facility] HEMATOLOGY Monocytes 8.4 2.0 - 12.0 05/26/2016 [facility] HEMATOLOGY Basophils 0.1 0.0 - 1.0 05/26/2016 [facility] HEMATOLOGY Segs-Bands # 11.6 1.5 - 8.1 05/26/2016 [facility] HEMATOLOGY Lymphocytes # 0.4 1.0 - 5.5 05/26/2016 [facility] CHEM PANEL Magnesium Lvl 1.8 1.8 - 2.4 12/17/2014 [facility] LIPIDS VLDL 14 12/17/2014 [facility] LIPIDS LDL (Calculated) 36 <=99 mg/dL 12/17/2014 [facility] LIPIDS Chol 122 <=199 mg/dL 12/17/2014 [facility] LIPIDS Trig 68 <=149 mg/dL 12/17/2014 [facility] LIPIDS HDL 72 >=61 mg/dL 12/17/2014 [facility] LIPIDS CHD Risk 1.69 3.90 - 5.80 12/17/2014 [facility] SPECIAL CHEMISTRY Hgb A1C 5.1 <=5.6 % 12/16/2014 [facility] THYROID PANEL TSH 6.980 0.360 - 3.740 12/16/2014 [facility] THYROID PANEL T4 Free 0.85 0.76 - 1.46 12/16/2014 [facility] CARDIAC ENZYMES CK MB Index 0.8 0.0 - 2.5 12/16/2014 [facility] CARDIAC ENZYMES CK MB 1.1 0.5 - 3.6 12/16/2014 [facility] CARDIAC ENZYMES Troponin-I <0.02 0.00 - 0.40 12/16/2014 [facility] CARDIAC ENZYMES Total CK 135 12 - 191 12/16/2014 [facility] CHEM PANEL Phosphorus 3.0 2.5 - 4.5 12/16/2014 [facility] CHEM PANEL Magnesium Lvl 1.4 1.8 - 2.4 12/16/2014 [facility] HEMATOLOGY PTT 21.9 22.9 - 35.8 12/16/2014 [facility] HEMATOLOGY PT 13.7 12.0 - 14.7 12/16/2014 [facility] HEMATOLOGY INR 1.02 0.85 - 1.17 12/16/2014 [facility] DRUG SCREEN U Phencyc Scr Negative *NA* (12/16/14 10:24 AM) Negative 12/16/2014 [facility] DRUG SCREEN U Opiate Scr Positive *ABN* (12/16/14 10:24 AM) Negative 12/16/2014 [facility] DRUG SCREEN U Cocaine Scr Negative *NA* (12/16/14 10:24 AM) Negative 12/16/2014 [facility] DRUG SCREEN U Cannab Scr Negative *NA* (12/16/14 10:24 AM) Negative 12/16/2014 [facility] DRUG SCREEN U Benzodia Scr Negative *NA* (12/16/14 10:24 AM) Negative 12/16/2014 [facility] DRUG SCREEN U Lakshmi Scr Negative *NA* (12/16/14 10:24 AM) Negative 12/16/2014 [facility] DRUG SCREEN UDS Note See Note *NA* (12/16/14 10:24 AM) 12/16/2014 [facility] DRUG SCREEN U Amph Scr Negative *NA* (12/16/14 10:24 AM) Negative 12/16/2014 [facility] URINE AND STOOL UA Urobilinogen <=1.0 mg/dL 0.1 - 1.0 12/16/2014 [facility] URINE AND STOOL UA Spec Grav 1.017 <=1.030 12/16/2014 [facility] URINE AND STOOL UA pH 5.0 5.0 - 8.0 12/16/2014 [facility] URINE AND STOOL UA Color Yellow *NA* (12/16/14 10:24 AM) Yellow 12/16/2014 [facility] URINE AND STOOL UA Turbidity Clear (12/16/14 10:24 AM) Clear 12/16/2014 [facility] URINE AND STOOL UA RBC 4 0 - 2 12/16/2014 [facility] URINE AND STOOL UA Bacteria Occasional /HPF None Seen /HPF 12/16/2014 [facility] URINE AND STOOL UA Mucus Few /LPF None Seen /LPF 12/16/2014 [facility] URINE AND STOOL UA Sq Epi Moderate /LPF Few /LPF 12/16/2014 [facility] URINE AND STOOL UA WBC 2 0 - 5 12/16/2014 [facility] URINE AND STOOL UA Nitrite Negative (12/16/14 10:24 AM) Negative 12/16/2014 [facility] URINE AND STOOL UA Leuk Est Negative (12/16/14 10:24 AM) Negative 12/16/2014 [facility] URINE AND STOOL UA Blood Negative (12/16/14 10:24 AM) Negative 12/16/2014 [facility] URINE AND STOOL UA Glucose Negative mg/dL Negative mg/dL 12/16/2014 [facility] URINE AND STOOL UA Ketones Trace mg/dL Negative mg/dL 12/16/2014 [facility] URINE AND STOOL UA Protein Negative mg/dL Negative mg/dL 12/16/2014 [facility] URINE AND STOOL UA Bili Negative *NA* (12/16/14 10:24 AM) Negative 12/16/2014 [facility] CHEM PANEL Alk Phos 129 39 - 136 12/16/2014 [facility] CHEM PANEL Potassium Lvl 4.1 3.5 - 5.1 12/16/2014 [facility] CHEM PANEL Sodium Lvl 138 135 - 145 12/16/2014 [facility] CHEM PANEL Chloride Lvl 103 95 - 109 12/16/2014 [facility] CHEM PANEL eGFR 83 12/16/2014 Result [...] should be multiplied by the estimated BMI. [facility] CHEM PANEL Creatinine Lvl 0.8 0.5 - 1.4 12/16/2014 [facility] CHEM PANEL Calcium Lvl 8.4 8.5 - 10.5 12/16/2014 [facility] CHEM PANEL BUN 9 7 - 22 12/16/2014 [facility] CHEM PANEL Glucose Lvl 81 70 - 99 12/16/2014 [facility] CHEM PANEL CO2 27 24 - 32 12/16/2014 [facility] CHEM PANEL Albumin Lvl 3.5 3.5 - 5.0 12/16/2014 [facility] CHEM PANEL AST 28 0 - 37 12/16/2014 [facility] CHEM PANEL ALT 35 0 - 65 12/16/2014 [facility] CHEM PANEL Total Protein 7.0 6.4 - 8.4 12/16/2014 [facility] CHEM PANEL Bili Total 0.5 0.2 - 1.3 12/16/2014 [facility] CHEM PANEL B/C Ratio 11 6 - 25 12/16/2014 [facility] CHEM PANEL AGAP 12.1 10.0 - 20.0 12/16/2014 [facility] CHEM PANEL A/G Ratio 1.0 0.7 - 1.6 12/16/2014 [facility] CHEM PANEL Globulin 3.5 2.0 - 4.0 12/16/2014 [facility] HEMATOLOGY MPV 6.7 7.4 - 10.4 12/16/2014 [facility] Platelet 298 133 - 450 12/16/2014 [facility] RDW 16.1 11.5 - 14.5 12/16/2014 [facility] HEMATOLOGY MCHC 31.6 32.0 - 36.0 12/16/2014 [facility] MCH 27.1 27.0 - 31.0 12/16/2014 [facility] HEMATOLOGY MCV 85.8 80.0 - 98.0 12/16/2014 [facility] HEMATOLOGY Hct 36.8 36.0 - 48.0 12/16/2014 [facility] Hgb 11.7 12.0 - 16.0 12/16/2014 [facility] RBC 4.30 4.20 - 5.40 12/16/2014 [facility] WBC 11.2 3.7 - 10.4 12/16/2014 [facility] HEMATOLOGY PTT 24.4 22.9 - 35.8 12/16/2014 [facility] HEMATOLOGY PT 13.6 12.0 - 14.7 12/16/2014 [facility] HEMATOLOGY INR 1.01 0.85 - 1.17 12/16/2014 [facility] HEMATOLOGY Monocytes # 1.0 0.0 - 0.8 12/16/2014 [facility] HEMATOLOGY Lymphocytes # 1.8 1.0 - 5.5 12/16/2014 [facility] HEMATOLOGY Segs-Bands # 8.2 1.5 - 8.1 12/16/2014 [facility] HEMATOLOGY Basophils 0.4 0.0 - 1.0 12/16/2014 [facility] HEMATOLOGY Monocytes 9.4 2.0 - 12.0 12/16/2014 [facility] HEMATOLOGY Eosinophils 0.2 0.0 - 4.0 12/16/2014 [facility] HEMATOLOGY Lymphocytes 16.4 20.0 - 40.0 12/16/2014 [facility] HEMATOLOGY Segs 73.6 45.0 - 75.0 12/16/2014 [facility] TOXICOLOGY Etoh (%) <0.003 12/16/2014 [facility] TOXICOLOGY Ethanol Lvl <3 12/16/2014 [facility] CHEM PANEL eGFR 83 12/11/2013 <sup>1</sup>Result [...] should be multiplied by the estimated BMI. [facility] CHEM PANEL Total Protein 6.2 6.4 - 8.4 12/11/2013 [facility] CHEM PANEL Albumin Lvl 3.0 3.5 - 5.0 12/11/2013 [facility] CHEM PANEL ALT 23 0 - 65 12/11/2013 [facility] CHEM PANEL AST 13 0 - 37 12/11/2013 [facility] CHEM PANEL Alk Phos 81 39 - 136 12/11/2013 [facility] CHEM PANEL Bili Total 0.2 0.2 - 1.3 12/11/2013 [facility] CHEM PANEL BUN 7 7 - 22 12/11/2013 [facility] CHEM PANEL Glucose Lvl 190 70 - 99 12/11/2013 <sup>2</sup>Interpretive Data: Adult reference range values reflect the clinical guidelines
of the [place]. [facility] CHEM PANEL Sodium Lvl 137 135 - 145 12/11/2013 [facility] CHEM PANEL Creatinine Lvl 0.8 0.5 - 1.4 12/11/2013 [facility] CHEM PANEL Potassium Lvl 3.4 3.5 - 5.1 12/11/2013 [facility] CHEM PANEL Chloride Lvl 105 95 - 109 12/11/2013 [facility] CHEM PANEL CO2 23 24 - 32 12/11/2013 [facility] CHEM PANEL Calcium Lvl 8.2 8.5 - 10.5 12/11/2013 [facility] CHEM PANEL AGAP 12.4 10.0 - 20.0 12/11/2013 [facility] CHEM PANEL B/C Ratio 9 6 - 25 12/11/2013 [facility] CHEM PANEL Globulin 3.2 2.0 - 4.0 12/11/2013 [facility] CHEM PANEL A/G Ratio 0.9 0.7 - 1.6 12/11/2013 [facility] HEMATOLOGY Monocytes # 0.6 0.0 - 0.8 12/11/2013 [facility] HEMATOLOGY Monocytes 9.6 2.0 - 12.0 12/11/2013 [facility] HEMATOLOGY Basophils 0.7 0.0 - 1.0 12/11/2013 [facility] HEMATOLOGY Eosinophils 1.6 0.0 - 4.0 12/11/2013 [facility] HEMATOLOGY Eosinophils # 0.1 0.0 - 0.5 12/11/2013 [facility] HEMATOLOGY Lymphocytes # 1.8 1.0 - 5.5 12/11/2013 [facility] HEMATOLOGY Segs-Bands # 3.9 1.5 - 8.1 12/11/2013 [facility] HEMATOLOGY Lymphocytes 27.8 20.0 - 40.0 12/11/2013 [facility] HEMATOLOGY Segs 60.3 45.0 - 75.0 12/11/2013 [facility] HEMATOLOGY D-Dimer 0.26 12/11/2013 <sup>3</sup>Interpretive Data: In DIC, quantitative D-Dimer is generally greater than
0.66 ug/mL FEU. Values of quantitative D-Dimer less than
0.40 ug/mL FEU have been reported to be associated with a low
probability of deep vein thrombosis/pulmonary embolism.
This test alone should not be used to rule out DVT/PE. [facility] Hgb 11.1 12.0 - 16.0 12/11/2013 [facility] MCH 29.0 27.0 - 31.0 12/11/2013 [facility] WBC 6.5 3.7 - 10.4 12/11/2013 [facility] RBC 3.84 4.20 - 5.40 12/11/2013 [facility] Platelet 244 133 - 450 12/11/2013 [facility] MPV 7.1 7.4 - 10.4 12/11/2013 [facility] RDW 17.1 11.5 - 14.5 12/11/2013 [facility] MCHC 32.8 32.0 - 36.0 12/11/2013 [facility] MCV 88.3 80.0 - 98.0 12/11/2013 [facility] Hct 34.0 36.0 - 48.0 12/11/2013 [facility] Pathology Reports No Data Provided for [...] central canal effacement SL: ITH-M 06/13/2018 [facility] [place] Spine lumbar 2 or 3 views DX [...] exam. END IMPRESSION SL: [id number]-M 04/18/2018 [facility] [place] Hip 2/3 views uni w pelvis DX Left hip 2/3 views uni w pelvis DX, 04/18/2018 15:19 [facility] HISTORY: - M25.552 Pain in left hip COMPARISON: None FINDINGS: No evidence for acute fracture. Left femoral head is intact and located. Bony pelvis intact. Soft tissues unremarkable. IMPRESSION: No acute osseous abnormality SL: [id number] 04/18/2018 [facility] DX 3 VIEWS OF THE LEFT HAND HISTORY: Left hand pain. COMPARISON: No priors. Bony structures of the hand are intact, no fractures or dislocations. Joint spaces maintained. Soft tissues normal No radiopaque foreign body. IMPRESSION: Normal exam.. END REPORT SL: [id number] 04/18/2018 [facility] Spine cervical 2 or 3 view DX [...] post C5-C7 ACDF with satisfactory appearance. SL: [id number] 04/18/2018 [facility] Spine lumbar 2 or 3 views [...] radiographically. 2. Degenerative and postsurgical changes. SL: [id number] 11/14/2016 [facility] Spine lumbar 2 or 3 views [...] IMPRESSION: No acute fracture or subluxation. SL: [id number] 10/22/2016 [facility] Sacrum/coccyx series DX Sacrum/coccyx series DX [...] above. No displaced fractures are evident. SL: [id number] 10/22/2016 [facility] Abdomen/Pelvis wo IV contrast CT Study: CT ABDOMEN AND PELVIS WITHOUT CONTRAST, WITH RENAL STONE PROTOCOL Clinical Indication: Abdominal pain, acute; r flank pain, hx renal stones Comparison: None Technique: Axial images with sagittal and coronal reconstructions were obtained without contrast, utilizing renal stone protocol. CT Radiation Dose: HAT=6339.40 mGy-cm. FINDINGS: Double-pigtail left ureteral stent is [...] constipation. 5. Fatty liver and cholecystectomy. [facility] Chest 1view DX Study: Chest 1view [...] partially imaged. IMPRESSION: No acute abnormality. [facility] Carotid artery Doppler bilat US PROCEDURE: [...] in Ultrasound Consensus Panel Criteria. SL: 12/16/2014 [facility] Ribs unilateral 3 views w PA [...] and upper lumbar region vertebral body. SL:12/16/2014 [facility] Brain wo contrast CT Examination: CT [...] No acute intracranial abnormality. SL: 16 12/16/2014 [facility] Spine cervical wo contrast CT Examination: [...] injury to the cervical spine. SL: 12/16/2014 [facility] Facial bone wo contrast CT CT [...] other acute abnormality is noted. SL:13 12/16/2014 [facility] Consultation Notes No Data Provided for This Section Discharge Summaries No Data Provided for This Section History and Physicals No Data Provided for This Section Vital Signs Vital Sign Value Date Comments Source BMI Calculated 28.38 06/03/2018 [facility] Weight 65.909 06/03/2018 [facility] Height 152.4 cm 06/03/2018 [facility] Temperature Oral (F) 98.0 F 06/03/2018 [facility] Heart Rate 83 06/03/2018 [facility] Systolic (mm Hg) 127 06/03/2018 [facility] Diastolic (mm Hg) 86 06/03/2018 [facility] Temperature Oral (F) 98.3 F 11/14/2016 [facility] Systolic (mm Hg) 144 11/14/2016 [facility] Diastolic (mm Hg) 70 11/14/2016 [facility] Respitory Rate 18 11/14/2016 [facility] Heart Rate 78 11/14/2016 [facility] Weight 52.273 11/14/2016 [facility] Height 152.4 cm 11/14/2016 [facility] BMI Calculated 22.51 11/14/2016 [facility] Temperature Oral (F) 98.3 F 11/14/2016 [facility] Respitory Rate 18 11/14/2016 [facility] Heart Rate 87 11/14/2016 [facility] Systolic (mm Hg) 133 11/14/2016 [facility] Diastolic (mm Hg) 87 11/14/2016 [facility] Heart Rate 65 10/22/2016 [facility] Respitory Rate 18 10/22/2016 [facility] Temperature Oral (F) 98.2 F 10/22/2016 [facility] Systolic (mm Hg) 143 10/22/2016 [facility] Diastolic (mm Hg) 66 10/22/2016 [facility] BMI Calculated 22.7 10/22/2016 [facility] Weight 52.727 10/22/2016 [facility] Temperature Oral (F) 98.7 F 10/22/2016 [facility] Respitory Rate 18 10/22/2016 [facility] Height 152.4 cm 10/22/2016 [facility] Systolic (mm Hg) 134 10/22/2016 [facility] Diastolic (mm Hg) 74 10/22/2016 [facility] Heart Rate 68 10/22/2016 [facility] Temperature Oral (F) 98.1 F 05/27/2016 [facility] Heart Rate 74 05/27/2016 [facility] Respitory Rate 16 05/27/2016 [facility] Systolic (mm Hg) 119 05/27/2016 [facility] Diastolic (mm Hg) 65 05/27/2016 [facility] Heart Rate 73 05/27/2016 [facility] Temperature Oral (F) 98.2 F 05/27/2016 [facility] Systolic (mm Hg) 119 05/27/2016 [facility] Diastolic (mm Hg) 64 05/27/2016 [facility] Respitory Rate 16 05/27/2016 [facility] Systolic (mm Hg) 145 05/27/2016 [facility] Diastolic (mm Hg) 75 05/27/2016 [facility] Heart Rate 81 05/27/2016 [facility] Temperature Oral (F) 98.3 F 05/27/2016 [facility] Respitory Rate 16 05/27/2016 [facility] Weight [...] 12/17/2014 [facility] Diastolic (mm Hg) 67 12/17/2014 [facility] Heart Rate 77 12/17/2014 [facility] Heart Rate 78 12/17/2014 [facility] Respitory Rate 17 12/17/2014 [facility] Temperature Oral (F) 99.1 F 12/17/2014 [facility] Systolic (mm Hg) 141 12/17/2014 [facility] Diastolic (mm Hg) 88 12/17/2014 [facility] Systolic (mm Hg) 124 12/17/2014 [facility] Diastolic (mm Hg) 85 12/17/2014 [facility] Heart Rate 95 12/17/2014 [facility] Respitory Rate 16 12/17/2014 [facility] Temperature Oral (F) 98.0 F 12/17/2014 [facility] BMI Calculated 20.55 12/16/2014 [facility] Height 152.4 cm 12/16/2014 [facility] Weight 47.72 12/16/2014 [facility] Weight 47.727 12/16/2014 [facility] BMI Calculated 20.55 12/16/2014 [facility] Height 152.4 cm 12/16/2014 [facility] Temperature Oral (F) 98.3 F 12/11/2013 [facility] Diastolic (mm Hg) 80 12/11/2013 [facility] Systolic (mm Hg) 125 12/11/2013 [facility] Respitory Rate 18 12/11/2013 [facility] Heart Rate 66 12/11/2013 [facility] Temperature Oral (F) 98.2 F 12/11/2013 [facility] Weight 52.273 12/11/2013 [facility] BMI Calculated 22.51 12/11/2013 [facility] Height 152.4 cm 12/11/2013 [facility] Diastolic (mm Hg) 76 12/11/2013 [facility] Heart Rate 75 12/11/2013 [facility] Systolic (mm Hg) 123 12/11/2013 [facility] Respitory Rate 18 12/11/2013 [facility] Encounters Location Location Details Encounter Type Encounter Number Reason For Visit Attending Provider ADM Date DC Date Status Source [facility] [id number] Uma Mehta 12/11/2013 12/11/2013 [facility] OBS Observation Patient [id number] Vidal Salinas 12/16/2014 12/17/2014 [facility] Bedded Outpatient [id number] Temi Quesadaes 02/04/2015 02/04/2015 [facility] Inpatient [id number] Eliud Allison Diego Jr 05/26/2016 05/28/2016 [facility] Emergency [id number] Laurentnasim TamayoEscalante 10/22/2016 10/22/2016 [facility] Emergency [id number] Yuriy Sanchez 11/14/2016 11/14/2016 [facility] Outpatient [id number] STANFORD HENNESSY 06/03/2018 [facility] Primary Care [facility] Outpatient [id number] Stanford Hennessy Jr 06/03/2018 06/04/2018 [facility] Primary Care [facility] Between Visit [id number] 06/11/2018 06/12/2018 [facility] Outpatient Imaging [place] [facility] [id number] Axel Marquez II 06/14/2018 06/14/2018 [facility] [place] Procedures Procedure Code Date Perfomer Comments Source Cervical spinal fusion [id number] 03/15/2018 [facility] [place] Cervical spinal fusion [id number] 03/15/2018 [facility] Colonoscopy<sup>1</sup> [id number] 04/15/2014 no polyps [facility] [place] Date of last PAP smear [id number] 04/15/2014 [facility] [place] Colonoscopy<sup>1</sup> [id number] 04/15/2014 no polyps [facility] Date of last PAP smear [id number] 04/15/2014 [facility] Cholecystectomy [id number] [facility] Gastric bypass [id number] [facility] Hysterectomy [id number] [facility] section [id number] [facility] [place] Cholecystectomy [id number] [facility] [place] Gastric bypass [id number] [facility] [place] Hysterectomy [id number] [facility] [place] Nephrostomy with tube drainage [id number] [facility] [place] section [id number] [facility] Cholecystectomy [id number] [facility] Gastric bypass [id number] [facility] Hysterectomy [id number] [facility] Nephrostomy with tube drainage [id number] [facility] section [id number] [facility] Assessment and Plan Assessment and Plan Date Source Extracted from:Title: Clinical Document Author: Temi Marks MD Date: 12/17/14 [facility] Impression: Syncope Sinus tachycardia [...] remove patch 1 patch TOP Bedtime 12/17/2014 [facility] Plan of Care No Data Provided for This Section Social History Social History Date Source Social History TypeResponse Employment/School Other: , 2 daughters. Both daughters live in [place]. Smoking Status Current every day smoker; Type: Cigarettes; Previous treatment: None; Ready to change: No; Concerns about tobacco use in household: No; Lives with someone who smokes; Cigarette Smoking Last 365 Days No; Reg Smoking Cessation Counseling Yes; Tobacco use per day: 1; entered on: 06/03/18 06/03/2018 GAGE Pinto Social History TypeResponse Employment/School Other: , 2 daughters. Both daughters live in [place]. Smoking Status Current every day smoker; Type: [...] No; Reg Smoking Cessation Counseling Yes 11/14/2016 [facility] Family History No Data Provided for This Section Advance Directives No Data Provided for This Section Functional Status No Data Provided for This Section
[2018-10-12] MEDS ORDERED: MORPHINE SULFATE INJ 4 MG/ML INJ 1ML IV NR (12:00)
[2018-10-12] MEDS ORDERED: MORPHINE SULFATE INJ 4 MG/ML INJ 1ML ONE (12:14)
--- NOTE | 2018-10-12 12:17 | NUR ---
upon entering pts' room with morphine,she states," i told the to give me dilaudid. it's the only thing that works." morphine given
--- NOTE | 2018-10-12 13:00 | NUR ---
back from x-ray and requesting more pain medication. dr. mina/michael garner informed.
--- NOTE | 2018-10-12 13:25 | Diagnostic Imaging Report ---
Exam: Left shoulder radiographs-4 views History: Status post fall with left rib pain. Comparison: None. Findings: There is a comminuted, mildly displaced fracture of the left humeral neck with extension into the humeral head/greater tuberosity. There is intra-articular extension. There is approximately 9 mm of maximal displacement of the humeral head in relation to the humeral shaft. Partially seen anterior cervical fixation hardware. Impression: Mildly displaced left proximal humeral fracture as above. Signed by: Dr. Veronica Pereyra MD on 10/12/2018 1:22 PM
--- NOTE | 2018-10-12 13:28 | Diagnostic Imaging Report ---
Exam: Right knee radiographs-3 views History: Status post fall. Comparison: None. Findings: No evidence of acute fracture or malalignment. No suprapatellar joint effusion. The soft tissues are unremarkable. Impression: No acute radiographic abnormality. Signed by: Dr. Veronica Pereyra MD on 10/12/2018 1:24 PM
[2018-10-12] MEDS ORDERED: HYDROMORPHONE 2MG/ML 2 MG/ML ML IV NR (13:30)
--- NOTE | 2018-10-12 13:36 | Diagnostic Imaging Report ---
EXAMINATION: RIBS BILAT W/CXR INDICATION: Status post fall with left rib pain. COMPARISON: Concurrently performed left shoulder radiographs 10/12/2018. FINDINGS: TUBES and LINES: None. LUNGS: Lungs are moderately inflated. There is linear subsegmental atelectasis in the right lower lung. There is no evidence of pneumonia or pulmonary edema. PLEURA: Trace right pleural effusion. No evidence of pneumothorax. HEART AND MEDIASTINUM: The cardiomediastinal silhouette is unremarkable. BONES AND SOFT TISSUES: Please refer to the concurrently performed shoulder radiographs for details of left proximal humeral fracture. No evidence of displaced rib fracture. Vertebral augmentation changes in the lower thoracic and lumbar spine. There is a healing left posterior ninth rib fracture. UPPER ABDOMEN: No free air under the diaphragm. Surgical clips are present in the right upper quadrant. IMPRESSION: No evidence of acute displaced rib fracture. Healing left posterior ninth rib fracture. Please refer to the concurrently performed shoulder radiographs for details of left proximal humeral fracture. Signed by: Dr. Veronica Pereyra MD on 10/12/2018 1:32 PM
== END 2018-10-12 14:30 | disposition home or self-care (01) ==
LOC: ER 11:40
DX: S42.352A Displaced comminuted fracture of shaft of humerus, left arm, initial encounter for closed fracture (principal); M25.561 Pain in right knee; R07.89 Other chest pain; W01.0XXA Fall on same level from slipping, tripping and stumbling without subsequent striking against object, initial encounter; Y93.01 Activity, walking, marching and hiking; Y92.008 Other place in unspecified non-institutional (private) residence as the place of occurrence of the external cause
CPT/HCPCS: 29125; 71111; 73030; 73562; 99284; J1170; J2270